=== PATIENT | male | born 1960 | race Caucasian/White ===

== ENCOUNTER → 2016-11-12 | Outpatient (CLI) | payer OTHER ==
--- NOTE | 2016-11-12 13:25 | XR ---
EXAMINATION TYPE: XR Hip Bilateral Complete DATE OF EXAM: 11/12/2016 11:25 AM COMPARISON: NONE HISTORY: Hip pain TECHNIQUE: Bilateral hips 2 views each FINDINGS: Femoral head spurring is present on the right. There is narrowing of the right hip joint sp juwan. There is narrowing of the left hip joint space. Acetabular spurring is present. Some femoral head spu rring is noted on the left. IMPRESSION: 1. Moderate bilateral hip degenerative changes
--- NOTE | 2016-11-12 13:26 | XR ---
EXAMINATION TYPE: XR lumbar spine 2 or 3V DATE OF EXAM: 11/12/2016 11:25 AM COMPARISON: NONE HISTORY: Low back pain TECHNIQUE: 3 view lumbar spine FINDINGS: Mild scoliosis in the upper lumbar spine. Some mild compression deformity of L1 may be pres ent. A limbus vertebra at T11 appears to be present, variant. Degenerative disc changes are present T 11-12 and T12-L1. Posterior disc space narrowing is present L1-2 IMPRESSION: 1. Degenerative disc changes upper lumbar spine. 2. Mild compression deformities T12 and L1
== END | disposition home or self-care (01) ==
LOC: RADXRMAIN 10:58
PROVIDERS: ATTEND Family Medicine
DX: M25.851 Other specified joint disorders, right hip (principal); M25.852 Other specified joint disorders, left hip; M47.816 Spondylosis without myelopathy or radiculopathy, lumbar region; M43.8X5 Other specified deforming dorsopathies, thoracolumbar region
CPT/HCPCS: 72100; 73521

== ENCOUNTER 2017-10-24 11:46 | Inpatient (IN) | payer OTHER ==
[2017-10-24] MEDS ORDERED: MORPHINE SULFATE 4 MG/ML SYRINGE IV STA (12:40)
[2017-10-24] MEDS ORDERED: RX INFO: IV CONTRAST WAS GIVEN 1 EACH MISC MISCELLANE PRN (12:40)
[2017-10-24] MEDS ORDERED: SODIUM CHLORIDE 0.9% 1,000 ML IV STA ×5 (12:40→15:15)
[2017-10-24] MEDS ORDERED: ONDANSETRON 4 MG/2 ML VIAL IVP STA (12:40)
--- NOTE | 2017-10-24 13:01 | ED ---
General Adult HPI - General Source: patient, RN notes reviewed Mode of arrival: wheelchair Limitations: no limitations <Mark Faith - Last Filed: 10/24/17 15:34> <Froilan Orellana - Last Filed: 10/24/17 15:41> - General Chief complaint: Abdominal Pain Stated complaint: ABDOMINAL PAIN Time Seen by Provider: 10/24/17 12:17 - History of Present Illness Initial comments: Patient 57-year-old male who presents emergency room today with a chief complaint abdominal pain that began yesterday. He doesn't know lower abdomen. Describes it as "sharp". Currently rates an 03/19. Patient states that had a few episodes of nausea vomiting this morning. States never had similar symptoms in the past. Denies any other complaints or symptoms at this time. Patient denies any recent fever, chills, shortness of breath, chest pain, back pain, numbness or tingling, dysuria or hematuria, constipation or diarrhea, headaches or visual changes, or any other complaints. (Mark Faith) - Related Data Home Medications Medication Instructions Recorded Confirmed Furosemide [Lasix] 40 mg PO DAILY 10/24/17 10/24/17 Ibuprofen [Motrin] 800 mg PO TID PRN 10/24/17 10/24/17 Lisinopril [Prinivil] 10 mg PO DAILY 10/24/17 10/24/17 Potassium Chloride [K-Tab ER] 10 meq PO DAILY 10/24/17 10/24/17 Allergies Allergy/AdvReac Type Severity Reaction Status Date / Time No Known Allergies Allergy Verified 10/24/17 13:07 Review of Systems ROS Other: All systems not noted in ROS Statement are negative. <Mark Faith - Last Filed: 10/24/17 15:34> ROS Other: All systems not noted in ROS Statement are negative. <Froilan Orellana - Last Filed: 10/24/17 15:41> ROS Statement: Those systems with pertinent positive or pertinent negative responses have been documented in the HPI. Past Medical History Past Medical History: Hypertension History of Any Multi-Drug Resistant Organisms: None Reported Past Surgical History: No Surgical Hx Reported Past Psychological History: No Psychological Hx Reported Smoking Status: Current every day smoker Past Alcohol Use History: Occasional Past Drug Use History: None Reported <Mark Faith - Last Filed: 03/17/18 15:34> General Exam Limitations: no limitations <Mark Faith - Last Filed: 10/24/17 15:34> <Froilan Orellana - Last Filed: 10/24/17 15:41> - General Exam Comments Initial Comments: General: The patient is awake and alert, in no distress, and does not appear acutely ill. Eye: Pupils are equal, round and reactive to light, extra-ocular movements are intact. No nystagmus. There is normal conjunctiva bilaterally. No signs of icterus. Ears, nose, mouth and throat: There are moist mucous membranes and no oral lesions. Neck: The neck is supple, there is no tenderness or JVD. Cardiovascular: There is a regular rate and rhythm. No murmur, rub or gallop is appreciated. Respiratory: Lungs are clear to auscultation, respirations are non-labored, breath sounds are equal. No wheezes, stridor, rales, or rhonchi. Gastrointestinal: Abdomen soft on palpation. Patient does have tenderness both upper and lower quadrants on the left right sides. No rebound tenderness. No guarding. No CVA tenderness. Musculoskeletal: Normal ROM, no tenderness. Strength 5/5. Sensation intact. Pulses equal bilaterally 2+. Neurological: A&O x 3. CN II-XII intact, There are no obvious motor or sensory deficits. Coordination appears grossly intact. Speech is normal. Skin: Skin is warm and dry and no rashes or lesions are noted. Psychiatric: Cooperative, appropriate mood & affect, normal judgment. (Mark Faith) Course <Mark Faith - Last Filed: 10/24/17 15:34> <Froilan Orellana - Last Filed: 10/24/17 15:41> Vital Signs 10/24/17 10/24/17 11:52 14:27 Temperature 97.8 F Pulse Rate 118 H 109 H Respiratory 18 18 Rate Blood Pressure 130/67 134/74 O2 Sat by Pulse 99 99 Oximetry - Reevaluation(s) Reevaluation #1: 10/24/17 15:39 I personally did a [id number] evaluation the patient did discuss findings with him. I also did discuss the case with Dr. Mendez. CAT scan did show evidence of acute appendicitis with small monitor perforation as was a focus of air at the base of the appendix which is nondependent also evidence of pericolic infiltration of the fat. (Froilan Orellana) Medical Decision Making - Lab Data Result diagrams: 10/24/17 13:15 10/24/17 13:15 <Mark Faith - Last Filed: 10/24/17 15:34> - Lab Data Result diagrams: 10/24/17 13:15 10/24/17 13:15 <Froilan Orellana - Last Filed: 10/24/17 15:41> - Medical Decision Making Patient's CT doesn't show evidence for acute appendicitis with possible rupture. Patient's labs reviewed does show 15,000 white count with elevated lactic acid. Patient given 3 L of fluid here in the emergency room. Clinically doing well at this time. Patient started on antibiotics of Zosyn. Discussed and seen by [facility] physician Dr. Orellana who did discuss case with surgeon position classifier Dr. Mendez who will plan to take the patient to the operating room. (Mark Faith) - Lab Data Lab Results 10/24/17 10/24/17 10/24/17 Range/Units 13:15 13:15 13:15 WBC 15.6 H (3.8-10.6) k/uL RBC 5.66 (4.30-5.90) m/uL Hgb 16.9 (13.0-17.5) gm/dL Hct 48.8 (39.0-53.0) % MCV 86.2 (80.0-100.0) fL MCH 29.9 (25.0-35.0) pg MCHC 34.7 (31.0-37.0) g/dL RDW 12.3 (11.5-15.5) % Plt Count 269 (150-450) k/uL Neutrophils % 91 % Lymphocytes % 4 % Monocytes % 4 % Eosinophils % 0 % Basophils % 0 % Neutrophils # 14.2 H (1.3-7.7) k/uL Lymphocytes # 0.6 L (1.0-4.8) k/uL Monocytes # 0.6 (0-1.0) k/uL Eosinophils # 0.0 (0-0.7) k/uL Basophils # 0.0 (0-0.2) k/uL Sodium 140 (137-145) mmol/L Potassium 4.5 (3.5-5.1) mmol/L Chloride 99 (98-107) mmol/L Carbon Dioxide 25 (22-30) mmol/L Anion Gap 16 mmol/L BUN 22 H (9-20) mg/dL Creatinine 0.80 (0.66-1.25) mg/dL Est GFR (CKD-EPI)AfAm >90 (>60 ml/min/1.73 sqM) Est GFR (CKD-EPI)NonAf >90 (>60 ml/min/1.73 sqM) Glucose 205 H (74-99) mg/dL Plasma Lactic Acid Lopez 4.6 H* (0.7-2.0) mmol/L Calcium 10.2 (8.4-10.2) mg/dL Total Bilirubin 0.9 (0.2-1.3) mg/dL AST 22 (17-59) U/L ALT 27 (21-72) U/L Alkaline Phosphatase 100 (38-126) U/L Total Protein 7.3 (6.3-8.2) g/dL Albumin 4.3 (3.5-5.0) g/dL Amylase 40 (30-110) U/L Lipase 35 (23-300) U/L Disposition Time of Disposition: 15:35 <Mark Faith - Last Filed: 10/24/17 15:34> <Froilan Orellana - Last Filed: 10/24/17 15:41> Clinical Impression: Acute appendicitis Disposition: ADMITTED IP TO THIS HOSP Condition: Stable Referrals: Kody Mckenna Jr, [Primary Care Provider] - 1-2 days
[2017-10-24 13:36] LABS: Basophils % (A) 0 %; Eosinophils % (A) 0 %; HCT 48.8 % (39.0-53.0); HGB 16.9 gm/dL (13.0-17.5); Lymphocytes # (A) 0.6 k/uL (1.0-4.8); Lymphocytes % (A) 4 %; MCH 29.9 pg (25.0-35.0); MCHC 34.7 g/dL (31.0-37.0); MCV 86.2 fL (80.0-100.0); Mean Platelet Volume 7.7; Monocytes # (A) 0.6 k/uL (0-1.0); Monocytes % (A) 4 %; Neutrophils # (A) 14.2 k/uL (1.3-7.7); Neutrophils % (A) 91 %; Platelet Count 269 k/uL (150-450); RBC 5.66 m/uL (4.30-5.90); RDW 12.3 % (11.5-15.5); WBC 15.6 k/uL (3.8-10.6)
[2017-10-24 13:50] LABS: ALT 27 U/L (21-72); AST 22 U/L (17-59); Albumin 4.3 g/dL (3.5-5.0); Alkaline Phosphatase 100 U/L (38-126); Amylase 40 U/L (30-110); Anion Gap 16 mmol/L; Blood Urea Nitrogen 22 mg/dL (9-20); Calcium 10.2 mg/dL (8.4-10.2); Carbon Dioxide 25 mmol/L (22-30); Chloride 99 mmol/L (98-107); Glucose 205 mg/dL (74-99); Lipase 35 U/L (23-300); Potassium 4.5 mmol/L (3.5-5.1); Sodium 140 mmol/L (137-145); Total Bilirubin 0.9 mg/dL (0.2-1.3); Total Protein 7.3 g/dL (6.3-8.2)
--- NOTE | 2017-10-24 14:26 | XR ---
EXAMINATION TYPE: XR KUB , 2 VIEWS DATE OF EXAM ORDERED: 10/24/2017 HISTORY: abdominal pain. COMPARISON: None. FINDINGS: The lung bases are clear. Within the abdomen, there are mildly prominent air-filled loops of small bowel in the midabdomen. The re is some left-sided colonic air. There is no evidence of free air. The stomach is mildly distended. IMPRESSION: 1. CENTRALIZED ILEUS VERSUS EARLY OBSTRUCTION. 2. GASTRIC DISTENTION.
--- NOTE | 2017-10-24 15:02 | CT ---
EXAMINATION TYPE: CT abdomen pelvis w con DATE OF EXAM: 10/24/2017 COMPARISON: NONE HISTORY: generalized pain CT DLP: 1663 mGycm Automated exposure control for dose reduction was used. TECHNIQUE: Helical acquisition of images was performed from the lung bases through the pelvis. CONTRAST: Performed without Oral Contrast and with IV Contrast, patient injected with 100 mL of Omnipaque 300. FINDINGS: LUNG BASES: No significant abnormality is appreciated. LIVER/GB: There could be a small cyst in the anterior right hepatic lobe which measures 1.1 cm. There is a tiny amount of perihepatic ascites. PANCREAS: No significant abnormality is seen. SPLEEN: No significant abnormality is seen. ADRENALS: No significant abnormality is seen. KIDNEYS: No significant abnormality is seen. FREE AIR: No free air is visualized. RETROPERITONEAL ADENOPATHY: None visualized REPRODUCTIVE ORGANS: No significant abnormality is seen URINARY BLADDER: No significant abnormality is seen. PELVIC ADENOPATHY: None visualized. OSSEOUS STRUCTURES: No significant abnormality is seen. BOWEL: There is extensive pericolonic infiltration of the fat in the right lower quadrant. The appen luis is dilated and there is extensive fat stranding surrounding the appendix. The appendix is dilated to 1.2 cm. No well-defined abscess is present at the current time however there is a focus of air at the base of the appendix which is nondependent. There could be a small area of perforation. OTHER: None IMPRESSION: ACUTE APPENDICITIS WITH LIKELY RUPTURE. NO WELL-DEFINED ABSCESS IS PRESENT AT THE CURRENT TIME.
[2017-10-24] MEDS ORDERED: PIPERACILLIN-TAZOBACTAM 3.375 GM in DEXTROSE/WATER 1 50ML.BAG IVPB STA (15:13)
[2017-10-24] MEDS ORDERED: LACTATED RINGERS 1,000 ML IV ONE ×5 (16:30→21:03)
--- NOTE | 2017-10-24 16:31 | P.GSHP ---
History of Present Illness H&P Date: 10/24/17 57-year-old male presents to the emergency department complaining of pain that began in his right lower quadrant approximately 24 hours ago. He states that the pain has worsened and has affected his entire lower abdomen. He states that he has decreased appetite. He denies any nausea. He denies any vomiting. He denies any change in bowel function. He states he has never had this type of pain before. He denies any fevers, chills, chest pain or shortness of breath at this time. He states he has never had any surgical procedures performed. He states that he is on medication for hypertension. - Review of Systems All systems: negative Past Medical History Past Medical History: Hypertension History of Any Multi-Drug Resistant Organisms: None Reported Past Surgical History: No Surgical Hx Reported Past Psychological History: No Psychological Hx Reported Smoking Status: Current every day smoker Past Alcohol Use History: Occasional Past Drug Use History: None Reported Medications and Allergies Home Medications Medication Instructions Recorded Confirmed Type Furosemide [Lasix] 40 mg PO DAILY 10/24/17 10/24/17 History Ibuprofen [Motrin] 800 mg PO TID PRN 10/24/17 10/24/17 History Lisinopril [Prinivil] 10 mg PO DAILY 10/24/17 10/24/17 History Potassium Chloride [K-Tab ER] 10 meq PO DAILY 10/24/17 10/24/17 History Allergies Allergy/AdvReac Type Severity Reaction Status Date / Time No Known Allergies Allergy Verified 10/24/17 13:07 Surgical - Exam Osteopathic Statement: *. No significant issues noted on an osteopathic structural exam other than those noted in the History and Physical/Consult. Vital Signs Temp Pulse Resp BP Pulse Ox 97.8 F 118 H 18 130/67 99 10/24/17 11:52 10/24/17 11:52 10/24/17 11:52 10/24/17 11:52 10/24/17 11:52 - General well nourished, no distress - Eyes PERRL, normal ocular movement - ENT normal nares, normal mucosa, no hearing loss - Neck trachea midline - Respiratory No difficulty with respiration - Abdomen Obese, Soft, tender to palpation in the right lower quadrant, nondistended, no rebound, no guarding - Neurologic normal sensation - Psychiatric oriented to time, oriented to person, oriented to place Results - Labs 10/24/17 13:15 10/24/17 13:15 Abnormal Lab Results - Last 24 Hours (Table) 10/24/17 10/24/17 10/24/17 Range/Units 13:15 13:15 13:15 WBC 15.6 H (3.8-10.6) k/uL Neutrophils # 14.2 H (1.3-7.7) k/uL Lymphocytes # 0.6 L (1.0-4.8) k/uL BUN 22 H (9-20) mg/dL Glucose 205 H (74-99) mg/dL Plasma Lactic Acid Lopez 4.6 H* (0.7-2.0) mmol/L Diabetes panel 10/24/17 Range/Units 13:15 Sodium 140 (137-145) mmol/L Potassium 4.5 (3.5-5.1) mmol/L Chloride 99 (98-107) mmol/L Carbon Dioxide 25 (22-30) mmol/L BUN 22 H (9-20) mg/dL Creatinine 0.80 (0.66-1.25) mg/dL Glucose 205 H (74-99) mg/dL Calcium 10.2 (8.4-10.2) mg/dL AST 22 (17-59) U/L ALT 27 (21-72) U/L Alkaline Phosphatase 100 (38-126) U/L Total Protein 7.3 (6.3-8.2) g/dL Albumin 4.3 (3.5-5.0) g/dL Calcium panel 10/24/17 Range/Units 13:15 Calcium 10.2 (8.4-10.2) mg/dL Albumin 4.3 (3.5-5.0) g/dL Pituitary panel 10/24/17 Range/Units 13:15 Sodium 140 (137-145) mmol/L Potassium 4.5 (3.5-5.1) mmol/L Chloride 99 (98-107) mmol/L Carbon Dioxide 25 (22-30) mmol/L BUN 22 H (9-20) mg/dL Creatinine 0.80 (0.66-1.25) mg/dL Glucose 205 H (74-99) mg/dL Calcium 10.2 (8.4-10.2) mg/dL Adrenal panel 10/24/17 Range/Units 13:15 Sodium 140 (137-145) mmol/L Potassium 4.5 (3.5-5.1) mmol/L Chloride 99 (98-107) mmol/L Carbon Dioxide 25 (22-30) mmol/L BUN 22 H (9-20) mg/dL Creatinine 0.80 (0.66-1.25) mg/dL Glucose 205 H (74-99) mg/dL Calcium 10.2 (8.4-10.2) mg/dL Total Bilirubin 0.9 (0.2-1.3) mg/dL AST 22 (17-59) U/L ALT 27 (21-72) U/L Alkaline Phosphatase 100 (38-126) U/L Total Protein 7.3 (6.3-8.2) g/dL Albumin 4.3 (3.5-5.0) g/dL - Imaging CT scan - abdomen: report reviewed, image reviewed (CT of the abdomen and pelvis was reviewed. There is inflammatory changes around the appendix. I cannot rule out a perforation secondary to some air foci.) CT scan - pelvis: report reviewed, image reviewed Assessment and Plan (1) Acute appendicitis Narrative/Plan: - Begin antibiotics - Keep nothing by mouth - Begin IV fluid resuscitation - Give preop heparin - Plan for laparoscopic appendectomy, possible open Current Visit: Yes Status: Acute Code(s): K35.80 - UNSPECIFIED ACUTE APPENDICITIS SNOMED Code(s): 68381047
[2017-10-24] MEDS ORDERED: HEPARIN SODIUM,PORCINE 5,000 UNIT/ML 1 ML VIAL SQ STA (16:32)
[2017-10-24] MEDS ORDERED: PROPOFOL 10 MG/ML 20 ML VIAL IV ONE (16:40)
[2017-10-24] MEDS ORDERED: PHENYLEPHRINE-0.9% NACL SYG 1 MG/10 ML SYRINGE ONE (16:40)
[2017-10-24] MEDS ORDERED: ROCURONIUM BROMIDE 10 MG/ML 10 ML VIAL IV ONE (16:40)
[2017-10-24] MEDS ORDERED: MIDAZOLAM 2 MG/2 ML VIAL ONE (16:40)
[2017-10-24] MEDS ORDERED: SUCCINYLCHOLINE CHLORIDE VIAL 200 MG/10 ML VIAL IV ONE (16:40)
[2017-10-24] MEDS ORDERED: fentaNYL (PF) 50 MCG/ML 2 ML AMP ONE (16:40)
[2017-10-24] MEDS ORDERED: LIDOCAINE 1% INJ 10MG/ML (20 ML MDV) ONE (16:40)
[2017-10-24] MEDS ORDERED: HEPARIN SODIUM,PORCINE 5,000 UNIT/ML 1 ML VIAL ONE (16:40)
[2017-10-24] MEDS ORDERED: HYDROmorphone (PF) 1 MG/ML ONE (16:40)
[2017-10-24] MEDS ORDERED: NEOSTIGMINE 1 MG/ML 10 ML VIAL ONE (16:40)
[2017-10-24] MEDS ORDERED: GLYCOPYRROLATE 0.2 MG/ML 2 ML VIAL ONE (16:40)
[2017-10-24] MEDS ORDERED: BUPIVACAINE (PF) 0.25% 30 ML VIAL SQ ONE ×2 (17:25)
--- NOTE | 2017-10-24 19:05 | P.OP ---
Date of Procedure: 10/24/17 Preoperative Diagnosis: Acute appendicitis Postoperative Diagnosis: Perforated appendicitis, purulent, intra-abdominal peritonitis Procedure(s) Performed: Laparoscopic appendectomy converted to open appendectomy Anesthesia: RENAN Surgeon: Sriram Mendez Estimated Blood Loss (ml): 25 Urine output (ml): 425 Pathology: other (Appendix, cultures of intra-abdominal fluid and appendix were sent) Condition: stable Disposition: floor Indications for Procedure: 57-year-old male presented to the emergency department complaining of 1 day of right lower quadrant pain. He states that the pain has been worsening and is now spread throughout his lower abdomen. On workup in the emergency department he was found to have a possible perforated appendicitis. Plan was made for laparoscopic appendectomy. The patient was explained the risks, benefits and alternatives to the procedure and did provide consent prior to attending the operating suite. Operative Findings: Perforated appendicitis with purulent material and stool in the right lower quadrant. Injected surrounding small bowel that was dilated. Description of Procedure: The patient was brought into the operating suite and placed in supine position on the operating table. Sedation was provided by anesthesia and the patient underwent endotracheal intubation. The patient was then wrapped and draped in regular sterile fashion. The patient also did have a Jaramillo catheter placed prior to the procedure. A supraumbilical incision was made and the abdomen was entered under direct visualization using a Visiport. Once this was accomplished , pneumoperitoneum was achieved. 2 additional 5 mm ports were then placed. One was placed in the left lower quadrant and one was placed in the suprapubic area. It was immediately noted that there was purulent material and stool throughout the right lower quadrant. Suction was used to clear this area. Dissection was then made to isolate the appendix. The tenia were followed and there was noted to have multiple small bowel loops that were densely adhered to the cecum along with omentum that was adhered to the cecum. These were dissected bluntly from the cecum. It was then noted that the appendix was retrocecal and had walled off between small bowel loops and omentum. Dissection was attempted to free this area however there was concern of the friability of the small bowel and cecum with continued blunt dissection. At this point, it was decided to complete this procedure in an open technique. A right lower quadrant McBurney incision was made. Dissection was carried to the fascia. The fascia was incised and the muscle below was bluntly split to access the peritoneum. The peritoneum was then incised. A retractor was then put in place. The cecum was isolated and blunt dissection was used to free the small bowel loops and omentum that were adhered. The tenia then led to the base of the appendix. The distal portion of the appendix was noted to be perforated and contained a fecalith. Dissection was used to free the appendix towards the tip of the appendix. At this point a stapler was placed across the base of the appendix. This was a [employer] WILLIAM 60 mm purple staple load. This was then fired and hemostasis was noted at the staple line. The appendix was then removed and handed as specimen. Copious amounts of irrigation was then used in the right lower quadrant and suctioned. A SHIRA drain was then placed under direct visualization and brought out through one of the 5 mm port sites. The fascia was then closed using a running 0 Vicryl suture. A few skin stefan were placed with room for packing between. Pneumoperitoneum was then again achieved with the additional ports. The supraumbilical port was then closed using a 0 Vicryl suture with a Sin-Bart device. Pneumoperitoneum was then released. Ports incision sites were closed using a skin stapler. The patient was then awakened in the operating suite and taken to postanesthesia care unit in stable condition.
[2017-10-24] MEDS ORDERED: NALOXONE 0.4 MG/ML 1 ML VIAL IV PRN (21:03)
[2017-10-24] MEDS ORDERED: ONDANSETRON 4 MG/2 ML VIAL IVP PRN (21:03)
[2017-10-24] MEDS: KETOROLAC 30 MG/ML 1 ML VIAL IVP SCH (22:27)
[2017-10-24] MEDS: MORPHINE SULFATE/PF 10MG/10ML VL IVP PRN (22:46)
[2017-10-25] MEDS: HEPARIN SODIUM,PORCINE 5,000 UNIT/ML 1 ML VIAL SQ SCH ×3 (00:33→16:30)
[2017-10-25] MEDS: PIPERACILLIN-TAZOBACTAM 3.375 GM in DEXTROSE/WATER 1 50ML.BAG IVPB SCH ×4 (00:33→23:59)
[2017-10-25 00:55] VITALS: BMI 38.0
[2017-10-25] MEDS: MORPHINE SULFATE/PF 10MG/10ML VL IVP PRN ×3 (04:08→20:38)
[2017-10-25] MEDS: KETOROLAC 30 MG/ML 1 ML VIAL IVP SCH ×2 (04:10→18:07)
[2017-10-25 07:52] LABS: Basophils % (A) 0 %; Eosinophils % (A) 0 %; HCT 40.4 % (39.0-53.0); Lymphocytes # (A) 0.9 k/uL (1.0-4.8); Lymphocytes % (A) 6 %; MCH 29.2 pg (25.0-35.0); MCHC 34.6 g/dL (31.0-37.0); MCV 84.4 fL (80.0-100.0); Mean Platelet Volume 7.8; Monocytes # (A) 0.5 k/uL (0-1.0); Monocytes % (A) 4 %; Neutrophils % (A) 88 %; Platelet Count 204 k/uL (150-450); RBC 4.78 m/uL (4.30-5.90); RDW 12.3 % (11.5-15.5); WBC 13.6 k/uL (3.8-10.6)
[2017-10-25] MEDS: PANTOPRAZOLE 40 MG/10 ML VIAL IV SCH (07:56)
[2017-10-25 08:06] LABS: ALT 23 U/L (21-72); AST 16 U/L (17-59); Albumin 2.6 g/dL (3.5-5.0); Alkaline Phosphatase 56 U/L (38-126); Anion Gap 8 mmol/L; Blood Urea Nitrogen 23 mg/dL (9-20); Calcium 8.4 mg/dL (8.4-10.2); Carbon Dioxide 26 mmol/L (22-30); Chloride 104 mmol/L (98-107); Glucose 108 mg/dL (74-99); Potassium 4.5 mmol/L (3.5-5.1); Sodium 138 mmol/L (137-145); Total Bilirubin 1.1 mg/dL (0.2-1.3); Total Protein 4.9 g/dL (6.3-8.2)
[2017-10-25] MEDS ORDERED: SODIUM CHLORIDE 0.9% 1,000 ML IV ONE (09:41)
--- NOTE | 2017-10-25 10:36 | P.PN ---
Subjective Progress Note Date: 10/25/17 Patient seen and examined at bedside. Resting comfortably. Pain well- controlled. Decreased urine output with dark color. NG tube is in place with 200 mL out over last 15 hours. Denies any bowel function. Denies nausea and vomiting. SHIRA drain in place Objective - Vital Signs Vital signs: Vital Signs Temp 99.9 F H 10/25/17 07:00 Pulse 110 H 10/25/17 08:00 Resp 20 10/25/17 08:00 BP 115/61 10/25/17 07:00 Pulse Ox 94 L 10/25/17 07:00 Intake & Output 10/24/17 10/25/17 10/25/17 18:59 06:59 18:59 Intake Total 4900 200 Output Total 450 680 Balance 4450 -480 Weight 113.398 kg 113.398 kg Intake: IV 2800 200 Amount of Fluid Infused ( 2100 ml) Output: Gastric Drainage 30 Urine 425 650 Estimated Blood Loss 25 Other: Voiding Method Indwelling Catheter Indwelling Catheter - Constitutional General appearance: Present: cooperative - EENT ENT: Present: hearing grossly normal - Respiratory Details: No difficulty with respiration - Gastrointestinal Gastrointestinal Comment(s): Soft, appropriate tenderness, nondistended, no rebound, no guarding, incision sites are clean, dry and intact, SHIRA drain in place with serosanguineous output - Psychiatric Psychiatric: Present: A&O x's 3 - Labs CBC & Chem 7: 10/25/17 06:56 10/25/17 06:56 Labs: Abnormal Lab Results - Last 24 Hours (Table) 10/24/17 10/24/17 10/24/17 Range/Units 13:15 13:15 13:15 WBC 15.6 H (3.8-10.6) k/uL Neutrophils # 14.2 H (1.3-7.7) k/uL Lymphocytes # 0.6 L (1.0-4.8) k/uL BUN 22 H (9-20) mg/dL Glucose 205 H (74-99) mg/dL Plasma Lactic Acid Lopez 4.6 H* (0.7-2.0) mmol/L AST (17-59) U/L Total Protein (6.3-8.2) g/dL Albumin (3.5-5.0) g/dL 10/25/17 10/25/17 Range/Units 06:56 06:56 WBC 13.6 H (3.8-10.6) k/uL Neutrophils # 12.0 H (1.3-7.7) k/uL Lymphocytes # 0.9 L (1.0-4.8) k/uL BUN 23 H (9-20) mg/dL Glucose 108 H (74-99) mg/dL Plasma Lactic Acid Lopez (0.7-2.0) mmol/L AST 16 L (17-59) U/L Total Protein 4.9 L (6.3-8.2) g/dL Albumin 2.6 L (3.5-5.0) g/dL Microbiology - Last 24 Hours (Table) 10/24/17 18:30 Gram Stain - Preliminary Appendix Wound Culture - Preliminary 10/24/17 18:30 Anaerobic Culture - Preliminary Appendix Assessment and Plan (1) Acute appendicitis Narrative/Plan: Laparoscopic appendectomy converted to open appendectomy, postoperative day #1 - Continue Zosyn, infectious disease consult was placed due to intra-abdominal stool secondary to perforated appendicitis - Keep nothing by mouth, NG tube in place with brown output, continue Protonix IV - Continue IV fluid resuscitation, lactated Ringer at 1 25 mL an hour, 1 L bolus of normal saline - Continue DVT prophylaxis with subcutaneous heparin - Increase activity, incentive spirometry - Pain control - Continue Jaramillo to monitor urine output status post surgical procedure Current Visit: Yes Status: Acute Code(s): K35.80 - UNSPECIFIED ACUTE APPENDICITIS SNOMED Code(s): 18091633
[2017-10-25] MEDS ORDERED: KETOROLAC 30 MG/ML 1 ML VIAL IM ONE (10:39)
[2017-10-25] MEDS: FUROSEMIDE 40 MG TAB PO SCH (10:50)
[2017-10-25] MEDS: LISINOPRIL 10 MG TAB PO SCH (10:50)
[2017-10-25] MEDS ORDERED: LIDOCAINE URO-JET JELLY 2% 5 ML KIT URETHRAL STA (21:47)
--- NOTE | 2017-10-25 22:20 | P.GSCN ---
History of Present Illness Consult date: 10/25/17 Reason for Consult: Inability to void Requesting physician: Sriram Mendez History of present illness: The patient is a 57-year-old white male with an unremarkable urologic history. He states that he has no history of voiding dysfunction, and that his urinary stream was strong prior to admission. He has no known history of UTIs, urolithiasis, or BPH. He underwent an open appendectomy yesterday. A 10- Moroccan Jaramillo catheter was placed with difficulty, and the catheter was not draining properly. It was removed earlier today, and he has been able to void only once since that time. It has now been almost 6 hours since he last voided , and he is currently unable to void. I'm consulted for this reason. Review of Systems - Gastrointestinal Reports abdominal pain - Genitourinary Denies dysuria, Denies hematuria Past Medical History Past Medical History: Hypertension History of Any Multi-Drug Resistant Organisms: None Reported Past Surgical History: No Surgical Hx Reported Past Psychological History: No Psychological Hx Reported Smoking Status: Current every day smoker Past Alcohol Use History: Occasional Past Drug Use History: None Reported Medications and Allergies Home Medications Medication Instructions Recorded Confirmed Type Furosemide [Lasix] 40 mg PO DAILY 10/24/17 10/24/17 History Ibuprofen [Motrin] 800 mg PO TID PRN 10/24/17 10/24/17 History Lisinopril [Prinivil] 10 mg PO DAILY 10/24/17 10/24/17 History Potassium Chloride [K-Tab ER] 10 meq PO DAILY 10/24/17 10/24/17 History Allergies Allergy/AdvReac Type Severity Reaction Status Date / Time No Known Allergies Allergy Verified 10/24/17 13:07 Surgical - Exam Vital Signs Temp Pulse Resp BP Pulse Ox 97.8 F 118 H 18 130/67 99 10/24/17 11:52 10/24/17 11:52 10/24/17 11:52 10/24/17 11:52 10/24/17 11:52 - General well developed, well nourished, moderate distress - Genitourinary normal penis with no external lesions, testicles present - Psychiatric oriented to time, oriented to person, oriented to place, speech is normal, memory intact Results - Labs 10/25/17 06:56 10/25/17 06:56 Abnormal Lab Results - Last 24 Hours (Table) 10/25/17 10/25/17 Range/Units 06:56 06:56 WBC 13.6 H (3.8-10.6) k/uL Neutrophils # 12.0 H (1.3-7.7) k/uL Lymphocytes # 0.9 L (1.0-4.8) k/uL BUN 23 H (9-20) mg/dL Glucose 108 H (74-99) mg/dL AST 16 L (17-59) U/L Total Protein 4.9 L (6.3-8.2) g/dL Albumin 2.6 L (3.5-5.0) g/dL Microbiology - Last 24 Hours (Table) 10/24/17 13:15 Blood Culture - Preliminary Blood No Growth after 24 hours 10/24/17 18:30 Gram Stain - Preliminary Appendix Wound Culture - Preliminary Gram Neg Bacilli 10/24/17 18:30 Anaerobic Culture - Preliminary Appendix Diabetes panel 10/25/17 Range/Units 06:56 Sodium 138 (137-145) mmol/L Potassium 4.5 (3.5-5.1) mmol/L Chloride 104 (98-107) mmol/L Carbon Dioxide 26 (22-30) mmol/L BUN 23 H (9-20) mg/dL Creatinine 1.02 (0.66-1.25) mg/dL Glucose 108 H (74-99) mg/dL Calcium 8.4 (8.4-10.2) mg/dL AST 16 L (17-59) U/L ALT 23 (21-72) U/L Alkaline Phosphatase 56 (38-126) U/L Total Protein 4.9 L (6.3-8.2) g/dL Albumin 2.6 L (3.5-5.0) g/dL Calcium panel 10/25/17 Range/Units 06:56 Calcium 8.4 (8.4-10.2) mg/dL Albumin 2.6 L (3.5-5.0) g/dL Pituitary panel 10/25/17 Range/Units 06:56 Sodium 138 (137-145) mmol/L Potassium 4.5 (3.5-5.1) mmol/L Chloride 104 (98-107) mmol/L Carbon Dioxide 26 (22-30) mmol/L BUN 23 H (9-20) mg/dL Creatinine 1.02 (0.66-1.25) mg/dL Glucose 108 H (74-99) mg/dL Calcium 8.4 (8.4-10.2) mg/dL Adrenal panel 10/25/17 Range/Units 06:56 Sodium 138 (137-145) mmol/L Potassium 4.5 (3.5-5.1) mmol/L Chloride 104 (98-107) mmol/L Carbon Dioxide 26 (22-30) mmol/L BUN 23 H (9-20) mg/dL Creatinine 1.02 (0.66-1.25) mg/dL Glucose 108 H (74-99) mg/dL Calcium 8.4 (8.4-10.2) mg/dL Total Bilirubin 1.1 (0.2-1.3) mg/dL AST 16 L (17-59) U/L ALT 23 (21-72) U/L Alkaline Phosphatase 56 (38-126) U/L Total Protein 4.9 L (6.3-8.2) g/dL Albumin 2.6 L (3.5-5.0) g/dL Assessment and Plan (1) Urinary retention Current Visit: Yes Status: Acute Code(s): R33.9 - RETENTION OF URINE, UNSPECIFIED SNOMED Code(s): 988334284 Plan: The penis was prepped and draped sterilely. The urethral meatus was noted to be somewhat small in caliber. 2% lidocaine gel was administered intraurethrally. It was then possible to advance a 16-Moroccan coud tip Jaramillo catheter into the bladder. The urethral lumen was narrow, causing some resistance to the passage of the catheter. Approximately 100 mL of clear urine was drained from the bladder. The Jaramillo catheter may be removed when no longer needed. Please notify me if I can be of any further assistance. Time with Patient: Less than 30
[2017-10-26] MEDS: HEPARIN SODIUM,PORCINE 5,000 UNIT/ML 1 ML VIAL SQ SCH ×4 (00:01→23:28)
[2017-10-26] MEDS ORDERED: ACETAMINOPHEN IV (For NPO) 1,000 MG in EMPTY BAG 1 BAG IVPB ONE (00:35)
[2017-10-26] MEDS: MORPHINE SULFATE/PF 10MG/10ML VL IVP PRN ×2 (02:23→20:44)
--- NOTE | 2017-10-26 05:51 | CONS ---
CONSULTATION DATE OF SERVICE: 10/25/2017 REASON FOR CONSULTATION: Secondary peritonitis with perforated appendicitis. HISTORY OF PRESENT ILLNESS: The patient is a 57-year-old male who presented to the [facility] ER on the October around noon with chief complaints of abdominal pain. Apparently, his pain started the day before he presented to the hospital. The pain has been in the lower abdominal area and described the pain to be sharp almost 8/10 in severity. The patient did have associated nausea and a few episodes of vomiting on the morning he presented to the hospital. On arrival to the ER, the patient has been evaluated. He was afebrile. However, this morning he had a low-grade fever of 99.9. The patient did have elevated white count 15.6 with lactic acid of 4.6. The patient further evaluated and did have a CT abdomen and pelvis, which shows acute appendicitis with likely rupture. No well-defined abscess is present. The patient has been seen by General surgery, Dr. Mendez and this has been taken to the OR the same evening where the patient did have laparoscopic appendectomy that was converted to open appendectomy. Cultures of the intraabdominal fluid and the appendix were sent. The patient has been admitted to the general surgical floor. Infectious Disease was consulted for further recommendation regarding antibiotic therapy. The patient is currently afebrile. He is breathing comfortably. Denies having any chest pain, shortness of breath or cough. He has been complaining of some abdominal pain still about 6 to 7/10, and has been getting morphine with some improvement. No nausea, no vomiting and no diarrhea. REVIEW OF SYSTEMS: CONSTITUTIONAL: Positive for weakness and low-grade fever. EYES: No complaint. ENT: No complaint. RESPIRATORY: No complaint. CARDIOVASCULAR: No complaint. GENITOURINARY: No complaint. GASTROINTESTINAL: As per HPI. MUSCULOSKELETAL: No complaint. INTEGUMENTARY: No complaint. PSYCHOLOGICAL: No complaint. ENDOCRINE: No complaint NEUROLOGIC: No complaint. PAST MEDICAL HISTORY: His past medical history is significant for hypertension. PAST SURGICAL HISTORY: No major surgeries. SOCIAL HISTORY: Positive for smoking, smokes about a pack a day, have more than 30 pack-year smoking. Occasionally drinks. No drug use. FAMILY HISTORY: No pertinent findings were noticed. ALLERGIES: No known drug allergies. MEDICATION: Medications include the patient is currently on Lasix, heparin, Zestril, morphine sulfate, Narcan, Zofran, Protonix, and Zosyn 3.375 grams IV piggyback q.8 hour. PHYSICAL EXAMINATION: On examination, his blood pressure is 129/85 with a pulse of 126, temperature of 99.9. He is 91% on 3 L nasal cannula. General description is a middle-aged male lying in bed in no distress. No tachypnea or accessory muscle of respiration use. HEENT EXAMINATION: No pallor or scleral icterus. Oral mucosa membrane is dry and no pharyngeal erythema or thrush. NECK: Trachea central. No thyromegaly. LUNGS: Unlabored breathing with decreased breath sounds in the bases, no wheeze. HEART: S1, S2. Regular rate and rhythm. No murmur. ABDOMEN: Soft, slightly distended. No guarding. No rigidity. No organomegaly. EXTREMITIES: No edema of the feet. SKIN EXAMINATION: No rash or mass palpable. NEUROLOGICAL: Patient is awake, alert, oriented x3. Mood and affect normal. LABS: Hemoglobin is 14, white count 13.6. Admission white count was 15.6. BUN of 23, creatinine 1.02. Lactic acid of 4.6. culture showing a gram-negative bacilli. DIAGNOSTIC IMPRESSION AND PLAN: Patient with secondary peritonitis from a ruptured appendicitis in a patient who does have features of sepsis. The patient did have elevated lactic acid, elevated white count and tachycardia likely on gram negative both aerobes and anaerobes and patient has not been on antibiotic in the past could be sensitive pathogen. PLAN: 1. Zosyn 3.375 grams IV q.8h should provide adequate coverage for underlying secondary peritonitis related to ruptured appendicitis. 2. Gentle IV fluids. 3. Depending upon his clinical response as well as cultures, will adjust the medication further if needed. Thank you for this consultation. Will follow this patient along with you. MMODL / IJN: [id number] /
[2017-10-26 07:54] LABS: Basophils % (A) 0 %; Eosinophils % (A) 0 %; HCT 38.8 % (39.0-53.0); HGB 12.6 gm/dL (13.0-17.5); Lymphocytes # (A) 0.7 k/uL (1.0-4.8); Lymphocytes % (A) 5 %; MCH 28.2 pg (25.0-35.0); MCHC 32.4 g/dL (31.0-37.0); MCV 87.2 fL (80.0-100.0); Mean Platelet Volume 8.6; Monocytes # (A) 0.6 k/uL (0-1.0); Monocytes % (A) 4 %; Neutrophils # (A) 13.4 k/uL (1.3-7.7); Neutrophils % (A) 90 %; Platelet Count 188 k/uL (150-450); RBC 4.45 m/uL (4.30-5.90); RDW 12.6 % (11.5-15.5); WBC 14.9 k/uL (3.8-10.6)
[2017-10-26 08:16] LABS: Calcium 8.5 mg/dL (8.4-10.2); Potassium 3.7 mmol/L (3.5-5.1)
[2017-10-26] MEDS: PIPERACILLIN-TAZOBACTAM 3.375 GM in DEXTROSE/WATER 1 50ML.BAG IVPB SCH ×3 (08:29→23:28)
[2017-10-26] MEDS: LACTATED RINGERS 1,000 ML IV SCH ×2 (09:24→18:10)
[2017-10-26] MEDS: PANTOPRAZOLE 40 MG/10 ML VIAL IV SCH (09:24)
[2017-10-26] MEDS: FUROSEMIDE 40 MG TAB PO SCH (09:24)
[2017-10-26] MEDS: LISINOPRIL 10 MG TAB PO SCH (09:24)
--- NOTE | 2017-10-26 10:44 | P.PN ---
Subjective Progress Note Date: 10/26/17 Patient seen and examined at bedside. Did receive multiple phone calls of over the last 24 hours on this patient. He has persistent tachycardia. He did have issues with his urinary catheter yesterday with inability to drain and the passing of a clot. Urology was consulted and Jaramillo was replaced. The patient did have a low-grade fever of 100.6 overnight and this was broken with IV Tylenol. He has not ambulated or been out of bed since surgery. He states that he still feels abdominal pain and bilateral lower quadrants. SHIRA drain is in place with serosanguineous output. NG tube put out less than 20 mL overnight. Objective - Vital Signs Vital signs: Vital Signs Temp 100.6 F H 10/26/17 00:30 Pulse 126 H 10/26/17 00:30 Resp 20 10/26/17 00:30 BP 135/82 10/26/17 00:30 Pulse Ox 93 L 10/26/17 00:30 Intake & Output 10/25/17 10/26/17 10/26/17 18:59 06:59 18:59 Intake Total 1874 Output Total 575 300 Balance 1299 -300 Intake: Intake, IV Titration 1874 Amount Lactated Ringers 1,000 ml 875 @ 125 mls/hr IV .Q8H ONE Rx#:[id number] Sodium Chloride 0.9% 1, 999 000 ml @ 999 mls/hr IV . Q1H1M ONE Rx#:[id number] Output: Gastric Drainage 100 Urine 475 300 Uretheral (Jaramillo) 0 Other: Voiding Method Indwelling Catheter Indwelling Catheter # Voids 0 - Constitutional General appearance: Present: cooperative, no acute distress - Respiratory Details: No difficulty with respiration - Gastrointestinal Gastrointestinal Comment(s): Soft, appropriate tenderness, nondistended, no rebound, no guarding, incision sites are clean, dry and intact, SHIRA drain in place with serosanguineous output - Musculoskeletal Musculoskeletal: Present: generalized weakness - Psychiatric Psychiatric: Present: A&O x's 3 - Labs CBC & Chem 7: 10/26/17 05:59 10/26/17 05:59 Labs: Abnormal Lab Results - Last 24 Hours (Table) 10/26/17 10/26/17 Range/Units 05:59 05:59 WBC 14.9 H (3.8-10.6) k/uL Hgb 12.6 L (13.0-17.5) gm/dL Hct 38.8 L (39.0-53.0) % Neutrophils # 13.4 H (1.3-7.7) k/uL Lymphocytes # 0.7 L (1.0-4.8) k/uL BUN 25 H (9-20) mg/dL Microbiology - Last 24 Hours (Table) 10/24/17 13:15 Blood Culture - Preliminary Blood No Growth after 24 hours 10/24/17 18:30 Gram Stain - Preliminary Appendix Wound Culture - Preliminary Gram Neg Bacilli Assessment and Plan (1) Acute appendicitis Narrative/Plan: Laparoscopic appendectomy converted to open appendectomy, postoperative day #2 - Continue Zosyn, infectious disease consult was placed due to intra-abdominal stool secondary to perforated appendicitis - Keep nothing by mouth, NG tube removed this morning - Persistent tachycardia is noted, consult cardiology and plan for echo - Continue IV fluid resuscitation, lactated Ringer at 125 mL an hour - Leukocytosis mildly increased today, we will continue to follow - Continue DVT prophylaxis with subcutaneous heparin - Increase activity, incentive spirometry - Pain control - Continue Jaramillo to monitor urine output status post surgical procedure, appreciate placement by Dr. Chanel, urology - Prognosis guarded Current Visit: Yes Status: Acute Code(s): K35.80 - UNSPECIFIED ACUTE APPENDICITIS SNOMED Code(s): 86639708
--- NOTE | 2017-10-26 12:57 | P.CONS ---
History of Present Illness - Reason for Consult Consult date: 10/26/17 Medical management - Chief Complaint s/p laparoscopic appendectomy - History of Present Illness 57-year-old male who presented to the emergency room on 10/24/2017 with a chief complaint of abdominal pain. The patient was found to have appendicitis and underwent laparoscopic appendectomy converted to open appendectomy with Dr. Mendez on 10/24/2017. His appendix was found to be perforated and was found to have intra-abdominal peritonitis. Dr. Ma was consulted for medical management. The patient is seen in evaluated sitting up in the chair. Dr. Whiteside is on consult for infectious disease. He is currently receiving Zosyn every 8 hours IV. Preliminary cultures from the patient's appendix are positive for gram-negative bacilli. The patient had an indwelling urinary catheter placed for surgery which was found to be not properly draining. The patient was unable to void since that time. Urology was consulted. A new indwelling coud catheter was placed per urology. Per nursing, the patient had multiple blood clots present. The patient has been tachycardic with a rate in the 110-120s. Cardiology was consulted today and an echocardiogram has been ordered. The patient was febrile overnight with a temperature of 100.6F. This morning he is afebrile with a temperature of 98.8. He is on 4 L nasal cannula with oxygen saturations greater than 92%. The patient had an NG tube to low intermittent suction which has since been discontinued this morning. SHIRA drain is in place with serosanguineous drainage. The patient denies chest pain or pressure. Denies shortness of breath. Denies nausea or vomiting. Denies flatus. No bowel movement. Denies palpitations. States his pain is tolerable at this time. Review of Systems GENERAL: Positive for fever. Denies chills. EYES: Denies blurred vision. Denies vision changes. Denies eye pain. EARS, NOSE, MOUTH, & THROAT: Denies headache. Denies sore throat. Denies ear pain. RESPIRATORY: Denies cough. Denies shortness of breath. Denies sputum production. Denies hemoptysis. CARDIOVASCULAR: Denies chest pain or pressure. Denies palpitations. Denies arrhythmias. GASTROINTESTINAL: Positive for abdominal pain upon admission. Patient states abdominal pain has improved. Denies diarrhea. Denies constipation. Denies nausea. Denies vomiting. Denies heartburn. Denies blood in the stool. GENITOURINARY: Denies urinary frequency. Denies burning. Denies dysuria. Denies cloudy urine. Denies blood in the urine. MUSCULOSKELETAL: Denies myalgias. Denies joint swelling. Denies decreased range of motion beyond patients baseline. INTEGUMENTARY: Denies pruitis. Denies rash. PSYCHIATRIC: Denies suicidal or homicial ideations. ENDOCRINE: Denies weight change. Denies polydipsia. Denies polyuria. HEMATOLOGIC: Denies bleeding disorders. Past Medical History Past Medical History: Hypertension History of Any Multi-Drug Resistant Organisms: None Reported Past Surgical History: No Surgical Hx Reported Past Psychological History: No Psychological Hx Reported Smoking Status: Current every day smoker Past Alcohol Use History: Occasional Past Drug Use History: None Reported Medications and Allergies Home Medications Medication Instructions Recorded Confirmed Type Furosemide [Lasix] 40 mg PO DAILY 10/24/17 10/24/17 History Ibuprofen [Motrin] 800 mg PO TID PRN 10/24/17 10/24/17 History Lisinopril [Prinivil] 10 mg PO DAILY 10/24/17 10/24/17 History Potassium Chloride [K-Tab ER] 10 meq PO DAILY 10/24/17 10/24/17 History Allergies Allergy/AdvReac Type Severity Reaction Status Date / Time No Known Allergies Allergy Verified 10/24/17 13:07 Physical Exam Vitals: Vital Signs Temp Pulse Pulse Resp BP Pulse Ox 10/26/17 07:00 98.8 F 117 H 92 L 10/26/17 00:30 100.6 F H 126 H 20 135/82 93 L 10/26/17 00:00 125 H 16 10/25/17 20:00 97.9 F 125 H 16 118/77 93 L 10/25/17 16:00 123 H 20 10/25/17 15:00 99.9 F H 126 H 18 129/85 91 L Intake and Output 10/25/17 10/26/17 10/26/17 22:59 06:59 14:59 Intake Total 1874 Output Total 875 0 Balance 999 0 Intake: Intake, IV Titration 1874 Amount Lactated Ringers 1,000 ml 875 @ 125 mls/hr IV .Q8H ONE Rx#:[id number] Sodium Chloride 0.9% 1, 999 000 ml @ 999 mls/hr IV . Q1H1M ONE Rx#:[id number] Output: Gastric Drainage 100 Drainage 0 Abdomen 0 Urine 775 Uretheral (Jaramillo) 0 Other: Voiding Method Indwelling Catheter Indwelling Catheter # Voids 0 GENERAL: This is a 57-year-old male in no apparent distress at the time of examination. Sitting up in the chair. Pleasant and cooperative. HEENT: Head is atraumatic, normocephalic. Pupils are equal, round, and reactive to light. Sclerae anicteric. Conjunctivae are clear. Mucus membranes of the mouth are moist. Neck is supple. RESPIRATORY: Clear to ausculation. No wheezes, rales, or rhonchi. No use of accessory muscles. Patient maintaining oxygen saturation greater than 92% on 4 L nasal cannula. No chest wall tenderness is noted on palpation or with deep breathing. CARDIOVASCULAR: Tachycardic. Regular rate and rhythm. S1 and S2 noted. No JVD noted. No S3 or S4 noted. GASTROINTESTINAL: No distention noted. Abdomen soft and round. Hypoactive bowel sounds auscultated x 4 quadrants. SHIRA drain present with serosanguineous drainage. No pain or tenderness noted upon palpation. INTEGUMENTARY: No cyanosis. No jaundice. No rashes noted. No cellulitis noted. EXTREMITIES: 2+ peripheral pulses. No evidence of peripheral edema. No calf tenderness noted. NEUROLOGIC: Cranial nerves II-XII intact. PSYCHIATRIC: Awake, alert, and oriented X 3. Appropriate affect. Intact judgement and insight. Results CBC & Chem 7: 10/26/17 05:59 10/26/17 05:59 Labs: Abnormal Lab Results - Last 24 Hours (Table) 10/26/17 10/26/17 Range/Units 05:59 05:59 WBC 14.9 H (3.8-10.6) k/uL Hgb 12.6 L (13.0-17.5) gm/dL Hct 38.8 L (39.0-53.0) % Neutrophils # 13.4 H (1.3-7.7) k/uL Lymphocytes # 0.7 L (1.0-4.8) k/uL BUN 25 H (9-20) mg/dL Microbiology - Last 24 Hours (Table) 10/24/17 13:15 Blood Culture - Preliminary Blood No Growth after 24 hours 10/24/18 18:30 Gram Stain - Preliminary Appendix Wound Culture - Preliminary Gram Neg Bacilli Assessment and Plan Plan: ASSESSMENT: Laparoscopic appendectomy converted to open appendectomy secondary to perforated appendix with intra-abdominal stool, POD #2 Sepsis with elevated lactic acid, leukocytosis, and tachycardia, secondary to above Essential hypertension Tachycardia, cardiology consulted Urinary retention with blood clots noted, s/p insertion of indwelling urinary catheter per urology Nicotine dependence, patient is a current everyday cigarette smoker Obesity: BMI 38.0 PLAN: Continue postoperative care per Dr. Mendez Cardiology consulted for tachycardia Echocardiogram ordered. Await results Activity as tolerated Pain control Urology on consult Continue indwelling urinary catheter Infectious disease on consult Continue Zosyn every 8 hours IV Home meds as appropriate Monitor labs Smoking cessation recommended GI prophylaxis: Protonix 40 mg IV Daily DVT prophylaxis: Heparin 5000 units subcu every 8 hours Monitor vital signs and address as appropriate Further recommendations pending patient's course Nurse practitioner note has been reviewed by physician. Signing provider agrees with the documented findings, assessment, and plan of care.
--- NOTE | 2017-10-26 19:29 | P.CRDCN ---
History of Present Illness Consult date: 10/26/17 History of present illness: Mr. Mcclure is a pleasant 57-year-old male past medical history significant for hypertension and chronic tobacco abuse. He also states he takes lasix for chronic lower extremity swelling. He denies history of coronary artery disease and has never seen a flight surveyor for any reason. We have been asked to see him in consultation for tachycardia. He is post-operative day #2 for perforated appendectomy. He has been febrile with a white count as well. At the time of my exam he is seen sitting up in the chair in no acute distress. He denies symptoms of chest pain, shortness of breath, palpitations or dizziness. He also denies symptoms of PND or orthopnea. Telemetry tracings reveal a sinus tachycardia. No EKG since admission. Will order one. Laboratory data reviewed, WBC 14.9, hgb 12.6, plt 188, sodium 139, potassium 3.7 , creatinine 1.16. Current cardiac medications include lisinopril 10 mg daily, Lasix 40 mg daily and potassium supplementation 10 daily. Review of Systems At the time of my exam: CONSTITUTIONAL: Denies fever. Denies chills. EYES: Denies blurred vision. Denies vision changes. Denies eye pain. EARS, NOSE, MOUTH & THROAT: Denies headache. Denies sore throat. Denies ear pain. CARDIOVASCULAR: Denies chest pain. Denies shortness of breath. Denies orthopnea. Denies PND. Denies palpitations. RESPIRATORY: Denies cough. GASTROINTESTINAL: Complains of incisional/abdominal discomfort. Denies diarrhea. Denies constipation. Denies nausea. Denies vomiting. MUSCULOSKELETAL: Denies myalgias. INTEGUMENTARY: Denies pruitis. Denies rash. NEUROLOGIC: Denies numbness. Denies tingling. Denies weakness. PSYCHIATRIC: Denies anxiety. Denies depression. ENDOCRINE: Denies fatigue. Denies weight change. Denies polydipsia. Denies polyurina. GENITOURINARY: Denies burning, hematuria or urgency with micturation. HEMATOLOGIC: Denies history of anemia. Denies bleeding. Past Medical History Past Medical History: Hypertension History of Any Multi-Drug Resistant Organisms: None Reported Past Surgical History: No Surgical Hx Reported Past Psychological History: No Psychological Hx Reported Smoking Status: Current every day smoker Past Alcohol Use History: Occasional Past Drug Use History: None Reported Medications and Allergies Home Medications Medication Instructions Recorded Confirmed Type Furosemide [Lasix] 40 mg PO DAILY 10/24/17 10/24/17 History Ibuprofen [Motrin] 800 mg PO TID PRN 10/24/17 10/24/17 History Lisinopril [Prinivil] 10 mg PO DAILY 10/24/17 10/24/17 History Potassium Chloride [K-Tab ER] 10 meq PO DAILY 10/24/17 10/24/17 History Allergies Allergy/AdvReac Type Severity Reaction Status Date / Time No Known Allergies Allergy Verified 10/24/17 13:07 Physical Exam Vitals: Vital Signs Temp Pulse Pulse Resp BP Pulse Ox 10/26/17 07:00 98.8 F 117 H 92 L 10/26/17 00:30 100.6 F H 126 H 20 135/82 93 L 10/26/17 00:00 125 H 16 10/25/17 20:00 97.9 F 125 H 16 118/77 93 L 10/25/17 16:00 123 H 20 10/25/17 15:00 99.9 F H 126 H 18 129/85 91 L Intake and Output 10/25/17 10/26/17 10/26/17 22:59 06:59 14:59 Intake Total 1874 Output Total 875 0 Balance 999 0 Intake: Intake, IV Titration 1874 Amount Lactated Ringers 1,000 ml 875 @ 125 mls/hr IV .Q8H ONE Rx#:[id number] Sodium Chloride 0.9% 1, 999 000 ml @ 999 mls/hr IV . Q1H1M ONE Rx#:[id number] Output: Gastric Drainage 100 Drainage 0 Abdomen 0 Urine 775 Uretheral (Jaramillo) 0 Other: Voiding Method Indwelling Catheter Indwelling Catheter # Voids 0 GENERAL: This is a 57-year-old male in no apparent distress at the time of my examination. Obese. HEENT: Head is atraumatic, normocephalic. Pupils are equal, round. Sclerae anicteric. Conjunctivae are clear. Mucous membranes of the mouth are moist. Neck is supple. There is no jugular venous distention. No carotid bruit is heard. LUNGS: Clear to auscultation no wheezes, rales or rhonchi. No chest wall tenderness is noted on palpation or with deep breathing. HEART: Regular rate and rhythm without murmurs, rubs or gallops. S1 and S2 heard. ABDOMEN: Abdominal incision clean dry and intact with SHIRA drain. EXTREMITIES: Trace bilateral lower extremity non-pitting edema and no calf tenderness noted. VASCULAR: Radial and dorsalis pedis pulses palpated, no evidence of clubbing. NEUROLOGIC: Patient is awake, alert and oriented x3. Results 10/26/17 05:59 10/26/17 05:59 CBC 10/26/17 Range/Units 05:59 WBC 14.9 H (3.8-10.6) k/uL RBC 4.45 (4.30-5.90) m/uL Hgb 12.6 L (13.0-17.5) gm/dL Hct 38.8 L (39.0-53.0) % Plt Count 188 (150-450) k/uL Comprehensive Metabolic Panel 10/26/17 Range/Units 05:59 Sodium 139 (137-145) mmol/L Potassium 3.7 (3.5-5.1) mmol/L Chloride 104 (98-107) mmol/L Carbon Dioxide 27 (22-30) mmol/L BUN 25 H (9-20) mg/dL Creatinine 1.16 (0.66-1.25) mg/dL Glucose 87 (74-99) mg/dL Calcium 8.5 (8.4-10.2) mg/dL Current Medications Generic Name Dose Route Start Last Admin Trade Name Freq PRN Reason Stop Dose Admin Furosemide 40 mg 10/25/17 09:00 10/26/17 09:24 Lasix PO 40 mg DAILY JUVENCIO Administration Heparin Sodium (Porcine) 5,000 unit 10/25/17 00:00 10/26/17 09:24 Heparin SQ 5,000 unit Q8HR JUVENCIO Administration Piperacillin/Tazobactam/ 50 mls @ 12.5 mls/hr 10/25/17 00:00 10/26/17 08:29 Dextrose 3.375 gm/ IV Solution IVPB 12.5 mls/hr Q8HR JUVENCIO Administration Lactated Ringer's 1,000 mls @ 125 mls/hr 10/26/17 09:00 10/26/17 09:24 Lactated Ringers IV 125 mls/hr .Q8H JUVENCIO Administration Lisinopril 10 mg 10/25/17 09:00 10/26/17 09:24 Zestril PO 10 mg DAILY JUVENCIO Administration Morphine Sulfate 4 mg 10/24/17 21:03 10/26/17 02:23 Morphine Sulfate IVP 4 mg Q3HR PRN Administration Moderate to Severe Pain Naloxone HCl 0.2 mg 10/24/17 21:03 Narcan IV Q2M PRN Opioid Reversal Ondansetron HCl 4 mg 10/24/17 21:03 Zofran IVP Q8HR PRN Nausea And Vomiting Pantoprazole Sodium 40 mg 10/25/17 09:00 10/26/17 09:24 Protonix IV 40 mg DAILY JUVENCIO Administration Intake and Output 10/25/17 10/26/17 10/26/17 22:59 06:59 14:59 Intake Total 1874 Output Total 875 0 Balance 999 0 Intake: Intake, IV Titration 1874 Amount Lactated Ringers 1,000 ml 875 @ 125 mls/hr IV .Q8H ONE Rx#:[id number] Sodium Chloride 0.9% 1, 999 000 ml @ 999 mls/hr IV . Q1H1M [facility] Rx#:[id number] Output: Gastric Drainage 100 Drainage 0 Abdomen 0 Urine 775 Uretheral (Jaramillo) 0 Other: Voiding Method Indwelling Catheter Indwelling Catheter # Voids 0 10/26/17 05:59 10/26/17 05:59 Assessment and Plan Assessment: ASSESSMENT 1. Tachycardia 2. Perforated appendectomy post-operative day #2 3. Hypertension 4. Chronic tobacco use 5. Obestiy, BMI 38 6. Leukocytosis 7. Febrile illness 8. Urinary retention. PLAN Obtain 12-lead EKG. Will review echocardiogram. Add small dose beta ana 12.5mg BID. Tachycardia probably related to leukocytosis and febrile illness. Agree with IV fluids started per surgery. Further recommendations to follow. Thank you kindly for this consultation. Nurse Practitioner note has been reviewed, I agree with a documented findings and plan of care. Patient was seen and examined.
[2017-10-26] MEDS ORDERED: SODIUM CHLORIDE 0.9% 1,000 ML IV ONE (19:45)
--- NOTE | 2017-10-26 19:45 | ECHOF ---
Referral Reason:sinus tachcardia MEASUREMENTS -------- HEIGHT: 172.7 cm WEIGHT: 113.4 kg BP: 135/82 IVSd: 1.1 cm (0.6 - 1.1) LVIDd: 3.7 cm (3.9 - 5.3) LVPWd: 1.4 cm (0.6 - 1.1) IVSs: 1.8 cm LVIDs: 2.4 cm LVPWs: 1.8 cm Ao Diam: 3.6 cm (2.0 - 3.7) AV Cusp: 2.3 cm (1.5 - 2.6) LA Diam: 3.7 cm (2.7 - 3.8) MV EXCURSION: 20.130 mm (> 18.000) MV EF SLOPE: 107 mm/s (70 - 150) EPSS: 0.6 cm MV E Hank: 0.73 m/s MV DecT: 181 ms MV A Hank: 1.10 m/s MV E/A Ratio: 0.67 RAP: 5.00 mmHg RVSP: 19.35 mmHg FINDINGS -------- Resting tachycardia (HR>100bpm). This was a technically difficult study with suboptimal views. The left ventricular size is normal. There is mild concentric left ventricular hypertrophy. Overa ll left ventricular systolic function is normal with, an EF between 60 - 65 %. The right ventricle is normal in size and function. The left atrium is normal in size. The right atrium is normal in size. The aortic valve is trileaflet, and appears structurally normal. No aortic stenosis or regurgitation. There is trace mitral regurgitation. Trace tricuspid regurgitation present. The right ventricular systolic pressure, as measured by Dopp ler, is 19.35mmHg. Pulmonic valve appears structurally normal. The aortic root size is normal. The pericardium is normal. CONCLUSIONS -------- 1. Resting tachycardia (HR>100bpm). 2. This was a technically difficult study with suboptimal views. 3. The left ventricular size is normal. 4. There is mild concentric left ventricular hypertrophy. 5. Overall left ventricular systolic function is normal with, an EF between 60 - 65 %. 6. The right ventricle is normal in size and function. 7. The left atrium is normal in size. 8. The right atrium is normal in size. 9. Lumason used 10. The aortic valve is trileaflet, and appears structurally normal. No aortic stenosis or regurgitat ion. 11. There is trace mitral regurgitation. 12. Trace tricuspid regurgitation present. 13. The right ventricular systolic pressure, as measured by Doppler, is 19.35mmHg. 14. Pulmonic valve appears structurally normal. 15. The aortic root size is normal. 16. The pericardium is normal. SILICA FILTER OPERATOR: Karon Castillo RDCS
[2017-10-26] MEDS ORDERED: METOPROLOL TARTRATE 25 MG TAB PO STA (19:47)
[2017-10-26] MEDS ORDERED: METOPROLOL TARTRATE 12.5 MG TAB PO SCH (21:00)
[2017-10-26] MEDS: METOPROLOL TARTRATE 25 MG TAB PO SCH (23:28)
--- NOTE | 2017-10-26 23:37 | PN ---
PROGRESS NOTE DATE OF SERVICE: 10/26/2017 REASON FOR FOLLOWUP: Secondary peritonitis with perforated appendicitis. INTERVAL HISTORY: The patient did have a low-grade fever of 100.6 at midnight; however, he was afebrile this morning. He did seem to have a problem with urinary retention and hematuria, for which Urology saw the patient and placed a Jaramillo catheter. The patient still complains of some abdominal pain, but no worsening, controlled with pain medication. No nausea or vomiting. Denies having any chest pain or shortness of breath or cough. PHYSICAL EXAMINATION: Blood pressure 119/62 with a pulse of 112, temperature of 99.7. He is 93% on 4 L nasal cannula. General description is a middle-aged male lying in bed in no distress. RESPIRATORY SYSTEM: Unlabored breathing with decreased breath sounds in the bases. No wheeze. HEART: S1, S2. Regular rate and rhythm. ABDOMEN: Soft. Slightly distended. No guarding or rigidity. EXTREMITIES: No edema of the feet. LABS: Hemoglobin is 12.6, white count 14.9, BUN of 25, creatinine 1.16. The appendiceal culture is showing E coli and Klebsiella pneumoniae, both of them sensitive to Zosyn as well as to Unasyn. DIAGNOSTIC IMPRESSION AND PLAN: Patient with secondary peritonitis from perforated appendicitis. Cultures remain positive for E coli, Klebsiella pneumoniae. Antibiotic will be adjusted to Unasyn 3 grams q.6. That will be transitioned to oral Augmentin once his overall activity improves and closer to discharge. Continue with supportive care. MMODL / IJN: [id number] /
[2017-10-27] MEDS ORDERED: ACETAMINOPHEN IV (For NPO) 1,000 MG in EMPTY BAG 1 BAG IVPB ONE (01:26)
[2017-10-27] MEDS: SODIUM CHLORIDE 0.9% 1,000 ML IV SCH ×5 (01:36→21:26)
[2017-10-27 06:52] LABS: Basophils % (A) 0 %; Eosinophils % (A) 0 %; HCT 34.9 % (39.0-53.0); Lymphocytes # (A) 0.6 k/uL (1.0-4.8); Lymphocytes % (A) 5 %; MCH 29.3 pg (25.0-35.0); MCHC 34.2 g/dL (31.0-37.0); MCV 85.5 fL (80.0-100.0); Mean Platelet Volume 7.8; Monocytes # (A) 0.4 k/uL (0-1.0); Monocytes % (A) 3 %; Neutrophils # (A) 11.1 k/uL (1.3-7.7); Neutrophils % (A) 89 %; Platelet Count 172 k/uL (150-450); RBC 4.09 m/uL (4.30-5.90); RDW 12.3 % (11.5-15.5); WBC 12.5 k/uL (3.8-10.6)
[2017-10-27 07:05] LABS: Potassium 3.3 mmol/L (3.5-5.1)
[2017-10-27] MEDS ORDERED: POTASSIUM CHLORIDE ER 20 MEQ TAB.ER PO STA ×2 (07:18→10:13)
[2017-10-27] MEDS: PANTOPRAZOLE 40 MG/10 ML VIAL IV SCH (07:39)
[2017-10-27] MEDS: HEPARIN SODIUM,PORCINE 5,000 UNIT/ML 1 ML VIAL SQ SCH ×2 (07:40→17:24)
[2017-10-27] MEDS: PIPERACILLIN-TAZOBACTAM 3.375 GM in DEXTROSE/WATER 1 50ML.BAG IVPB SCH (07:41)
[2017-10-27] MEDS: METOPROLOL TARTRATE 25 MG TAB PO SCH ×3 (07:41→21:25)
[2017-10-27] MEDS: LISINOPRIL 10 MG TAB PO SCH (07:41)
[2017-10-27] MEDS: FUROSEMIDE 40 MG TAB PO SCH (07:41)
--- NOTE | 2017-10-27 09:23 | P.PN ---
Subjective Progress Note Date: 10/27/17 10/26/2017 57-year-old male who presented to the emergency room on 10/24/2017 with a chief complaint of abdominal pain. The patient was found to have appendicitis and underwent laparoscopic appendectomy converted to open appendectomy with Dr. Mendez on 10/24/2017. His appendix was found to be perforated and was found to have intra-abdominal peritonitis. Dr. Ma was consulted for medical management. The patient is seen in evaluated sitting up in the chair. Dr. Whiteside is on consult for infectious disease. He is currently receiving Zosyn every 8 hours IV. Preliminary cultures from the patient's appendix are positive for gram-negative bacilli. The patient had an indwelling urinary catheter placed for surgery which was found to be not properly draining. The patient was unable to void since that time. Urology was consulted. A new indwelling coud catheter was placed per urology. Per nursing, the patient had multiple blood clots present. The patient has been tachycardic with a rate in the 110-120s. Cardiology was consulted today and an echocardiogram has been ordered. The patient was febrile overnight with a temperature of 100.6F. This morning he is afebrile with a temperature of 98.8. He is on 4 L nasal cannula with oxygen saturations greater than 92%. The patient had an NG tube to low intermittent suction which has since been discontinued this morning. SHIRA drain is in place with serosanguineous drainage. The patient denies chest pain or pressure. Denies shortness of breath. Denies nausea or vomiting. Denies flatus. No bowel movement. Denies palpitations. States his pain is tolerable at this time. 10/27/2017 Patient seen and examined at the bedside on rounds with Dr. Ma. Patient is awake and alert sitting up in the bed. Patient is tolerating a clear liquid diet. Patient denies nausea or vomiting. Patient states his pain is tolerable at this time. Indwelling urinary catheter remains intact with claudia urine noted. Patient was febrile throughout the night with a temperature of 101.7. He was started on metoprolol per cardiology for tachycardia. Patient denies any concerns or complaints at this time. Objective - Vital Signs Vital signs: Vital Signs Temp 101.7 F H 10/27/17 01:21 Pulse 94 10/27/17 01:21 Resp 18 10/27/17 00:00 BP 135/85 10/27/17 01:21 Pulse Ox 90 L 10/27/17 01:21 Intake & Output 10/26/17 10/27/17 10/27/17 18:59 06:59 18:59 Intake Total 3200 720 Output Total 2045 910 Balance -2044 2290 720 Intake: IV 600 Sodium Chloride 0.9% 1, 600 000 ml @ 150 mls/hr IV . Q6H40M [facility] Rx#:[id number] Intake, IV Titration 2800 Amount ACETAMINOPHEN IV (For NPO 200 ) 1,000 mg In Empty Bag 1 bag @ 400 mls/hr IVPB ONCE ONE Rx#:[id number] Piperacillin-Tazobactam 3 100 .375 gm In Dextrose/Water 1 50ml.bag @ 12.5 mls/hr IVPB Q8HR [facility] Rx#: [id number] Sodium Chloride 0.9% 1, 1500 000 ml @ 150 mls/hr IV . Q6H40M [facility] Rx#:[id number] Sodium Chloride 0.9% 1, 1000 000 ml @ 200 mls/hr IV . Q5H ONE Rx#:[id number] Oral 400 120 Output: Drainage 45 10 Abdomen 45 10 Urine 2000 900 Other: Voiding Method Indwelling Catheter Indwelling Catheter # Voids 2 - Exam GENERAL: This is a 57-year-old male in no apparent distress at the time of examination. Pleasant and cooperative. HEENT: Head is atraumatic, normocephalic. Pupils are equal, round, and reactive to light. Sclerae anicteric. Conjunctivae are clear. Mucus membranes of the mouth are moist. Neck is supple. RESPIRATORY: Clear to ausculation. No wheezes, rales, or rhonchi. No use of accessory muscles. Patient maintaining oxygen saturation greater than 92%. No chest wall tenderness is noted on palpation or with deep breathing. CARDIOVASCULAR: Regular rate and rhythm. S1 and S2 noted. No JVD noted. No S3 or S4 noted. GASTROINTESTINAL: No distention noted. Abdomen soft and round. Bowel sounds auscultated x 4 quadrants. SHIRA drain present with serosanguineous drainage. No pain or tenderness noted upon palpation. INTEGUMENTARY: No cyanosis. No jaundice. No rashes noted. No cellulitis noted. EXTREMITIES: 2+ peripheral pulses. No evidence of peripheral edema. No calf tenderness noted. NEUROLOGIC: Cranial nerves II-XII intact. PSYCHIATRIC: Awake, alert, and oriented X 3. Appropriate affect. Intact judgement and insight. - Labs CBC & Chem 7: 10/27/17 06:13 10/27/17 06:13 Labs: Abnormal Lab Results - Last 24 Hours (Table) 10/27/17 10/27/17 Range/Units 06:13 06:13 WBC 12.5 H (3.8-10.6) k/uL RBC 4.09 L (4.30-5.90) m/uL Hgb 12.0 L (13.0-17.5) gm/dL Hct 34.9 L (39.0-53.0) % Neutrophils # 11.1 H (1.3-7.7) k/uL Lymphocytes # 0.6 L (1.0-4.8) k/uL Potassium 3.3 L (3.5-5.1) mmol/L BUN 24 H (9-20) mg/dL Calcium 8.0 L (8.4-10.2) mg/dL Microbiology - Last 24 Hours (Table) 10/24/17 13:15 Blood Culture Gram Stain - Preliminary Blood 10/24/17 18:30 Gram Stain - Final Appendix Wound Culture - Final Escherichia coli Klebsiella pneumoniae 10/24/17 13:15 Blood Culture - Preliminary Blood No Growth after 48 hours Assessment and Plan Plan: ASSESSMENT: Laparoscopic appendectomy converted to open appendectomy secondary to perforated appendix with intra-abdominal stool, POD #3 Sepsis with elevated lactic acid, leukocytosis, and tachycardia, secondary to above Essential hypertension Tachycardia, cardiology consulted Urinary retention with blood clots noted, s/p insertion of indwelling urinary catheter per urology Nicotine dependence, patient is a current everyday cigarette smoker Obesity: BMI 38.0 PLAN: Continue postoperative care per Dr. Mendez Advance diet per surgery Cardiology on consult for tachycardia Continue metoprolol per cardiology for tachycardia Activity as tolerated Incentive spirometer 10 times an hour while awake Pain control Urology on consult Continue indwelling urinary catheter Infectious disease on consult Continue Zosyn every 8 hours IV Home meds as appropriate Monitor labs Smoking cessation recommended GI prophylaxis: Protonix 40 mg IV Daily DVT prophylaxis: Heparin 5000 units subcu every 8 hours Monitor vital signs and address as appropriate Further recommendations pending patient's course Nurse practitioner note has been reviewed by physician. Signing provider agrees with the documented findings, assessment, and plan of care.
--- NOTE | 2017-10-27 10:49 | P.PN ---
Subjective Progress Note Date: 10/27/17 Patient seen and examined at bedside. He had 1 bowel movement overnight. He also had a fever overnight that was broken with IV Tylenol. His tachycardia improved after cardiology further resuscitated the patient and began a beta ana. He is currently refusing to ambulate. He states that his abdominal pain is improving. He is not using his incentive spirometer. Objective - Vital Signs Vital signs: Vital Signs Temp 98.5 F 10/27/17 07:00 Pulse 83 10/27/17 07:00 Resp 16 10/27/17 07:00 BP 132/81 10/27/17 07:00 Pulse Ox 96 10/27/17 07:00 Intake & Output 10/26/17 10/27/17 10/27/17 18:59 06:59 18:59 Intake Total 3200 720 Output Total 2045 910 10 Balance -2044 2290 710 Intake: IV 600 Sodium Chloride 0.9% 1, 600 000 ml @ 150 mls/hr IV . Q6H40M [facility] Rx#:[id number] Intake, IV Titration 2800 Amount ACETAMINOPHEN IV (For NPO 200 ) 1,000 mg In Empty Bag 1 bag @ 400 mls/hr IVPB ONCE ONE Rx#:[id number] Piperacillin-Tazobactam 3 100 .375 gm In Dextrose/Water 1 50ml.bag @ 12.5 mls/hr IVPB Q8HR [facility] Rx#: [id number] Sodium Chloride 0.9% 1, 1500 000 ml @ 150 mls/hr IV . Q6H40M [facility] Rx#:[id number] Sodium Chloride 0.9% 1, 1000 000 ml @ 200 mls/hr IV . Q5H ONE Rx#:[id number] Oral 400 120 Output: Drainage 45 10 10 Abdomen 45 10 10 Urine 2000 900 Other: Voiding Method Indwelling Catheter Indwelling Catheter Indwelling Catheter # Voids 2 - Constitutional General appearance: Present: cooperative, no acute distress - EENT Eyes: Present: PERRLA ENT: Present: hearing grossly normal - Respiratory Details: No difficulty with respiration - Gastrointestinal Gastrointestinal Comment(s): Soft, appropriate tenderness, nondistended, no rebound, no guarding, incision sites are clean, dry and intact, SHIRA drain in place with serosanguineous output - Musculoskeletal Musculoskeletal: Present: generalized weakness - Psychiatric Psychiatric: Present: A&O x's 3 - Labs CBC & Chem 7: 10/27/17 06:13 10/27/17 06:13 Labs: Abnormal Lab Results - Last 24 Hours (Table) 10/27/17 10/27/17 Range/Units 06:13 06:13 WBC 12.5 H (3.8-10.6) k/uL RBC 4.09 L (4.30-5.90) m/uL Hgb 12.0 L (13.0-17.5) gm/dL Hct 34.9 L (39.0-53.0) % Neutrophils # 11.1 H (1.3-7.7) k/uL Lymphocytes # 0.6 L (1.0-4.8) k/uL Potassium 3.3 L (3.5-5.1) mmol/L BUN 24 H (9-20) mg/dL Calcium 8.0 L (8.4-10.2) mg/dL Microbiology - Last 24 Hours (Table) 10/24/17 13:15 Blood Culture Gram Stain - Preliminary Blood 10/24/17 18:30 Gram Stain - Final Appendix Wound Culture - Final Escherichia coli Klebsiella pneumoniae 10/24/17 13:15 Blood Culture - Preliminary Blood No Growth after 48 hours Assessment and Plan (1) Acute appendicitis Narrative/Plan: Laparoscopic appendectomy converted to open appendectomy, postoperative day #3 - Continue Zosyn, infectious disease consult was placed due to intra-abdominal stool secondary to perforated appendicitis - Begin clear liquid diet - Persistent tachycardia improved after evaluation by cardiology, further resuscitation was provided along with beta ana - Continue IV fluid resuscitation - Leukocytosis improved from yesterday - Has had febrile episodes 2 nights in a row, evaluated wound with no evidence of wound infection, patient is not using incentive spirometry and could be secondary to atelectasis, we will continue to monitor and we will monitor leukocytosis - Continue DVT prophylaxis with subcutaneous heparin - Increase activity, incentive spirometry - I did discuss the importance of this with the patient for his recovery - Pain control - Continue Jaramillo to monitor urine output status post surgical procedure, appreciate placement by Dr. Chanel, urology - Prognosis guarded Current Visit: Yes Status: Acute Code(s): K35.80 - UNSPECIFIED ACUTE APPENDICITIS SNOMED Code(s): 09081966
--- NOTE | 2017-10-27 11:25 | P.PN ---
Subjective Progress Note Date: 10/27/17 Mr. Mcclure is a pleasant 57-year-old male past medical history significant for hypertension and chronic tobacco abuse. He also states he takes lasix for chronic lower extremity swelling. He denies history of coronary artery disease and has never seen a java swing developer for any reason. We have been asked to see him in consultation for tachycardia. He is post-operative day #2 for perforated appendectomy. He has been febrile with a white count as well. At the time of my exam he is seen sitting up in the chair in no acute distress. He denies symptoms of chest pain, shortness of breath, palpitations or dizziness. He also denies symptoms of PND or orthopnea. Telemetry tracings reveal a sinus tachycardia. No EKG since admission. Will order one. Laboratory data reviewed, WBC 14.9, hgb 12.6, plt 188, sodium 139, potassium 3.7 , creatinine 1.16. Current cardiac medications include lisinopril 10 mg daily, Lasix 40 mg daily and potassium supplementation 10 daily. 10/27/2017 Mr. Mcclure is seen and examined today in follow-up. He had ongoing tachcardia last night and lopressor was increased to 25mg TID and more fluid was given. This morning he is sitting up in bed in no acute distress. He continues to be febrile this morning. Blood pressure 132/81, heart rate 83. No EKG was done as ordered yesterday, will request again today. WBC 12.5, hemoglobin 12.0, platelets 172, potassium 3.3, creatinine 1.10. Echocardiogram reviewed, preserved left ventricular systolic function with ejection fraction 60-65% and mild concentric left ventricular hypertrophy. Objective - Vital Signs Vital signs: Vital Signs Temp 98.5 F 10/27/17 07:00 Pulse 83 10/27/17 07:00 Resp 16 10/27/17 07:00 BP 132/81 10/27/17 07:00 Pulse Ox 96 10/27/17 07:00 Intake & Output 10/26/17 10/27/17 10/27/17 18:59 06:59 18:59 Intake Total 3200 720 Output Total 2045 910 120 Balance -2044 2290 600 Intake: IV 600 Sodium Chloride 0.9% 1, 600 000 ml @ 150 mls/hr IV . Q6H40M [facility] Rx#:[id number] Intake, IV Titration 2800 Amount ACETAMINOPHEN IV (For NPO 200 ) 1,000 mg In Empty Bag 1 bag @ 400 mls/hr IVPB ONCE ONE Rx#:[id number] Piperacillin-Tazobactam 3 100 .375 gm In Dextrose/Water 1 50ml.bag @ 12.5 mls/hr IVPB Q8HR [facility] Rx#: [id number] Sodium Chloride 0.9% 1, 1500 000 ml @ 150 mls/hr IV . Q6H40M [facility] Rx#:[id number] Sodium Chloride 0.9% 1, 1000 000 ml @ 200 mls/hr IV . Q5H ONE Rx#:[id number] Oral 400 120 Output: Drainage 45 10 120 Abdomen 45 10 120 Urine 2000 900 Other: Voiding Method Indwelling Catheter Indwelling Catheter Indwelling Catheter # Voids 2 - Exam GENERAL: Well-appearing, well-nourished and in no acute distress. NECK: Supple without JVD or thyromegaly. LUNGS: Breath sounds clear to auscultation bilaterally. Respiration equal and unlabored. No wheezes, rales or rhonchi. HEART: Regular rate and rhythm without murmurs, rubs or gallops. S1 and S2 heard. EXTREMITIES: Normal range of motion, trace nonpitting bilateral lower extremity edema. No clubbing or cyanosis. Peripheral pulses intact and strong. - Labs CBC & Chem 7: 10/27/17 06:13 10/27/17 06:13 Labs: Abnormal Lab Results - Last 24 Hours (Table) 10/27/17 10/27/17 Range/Units 06:13 06:13 WBC 12.5 H (3.8-10.6) k/uL RBC 4.09 L (4.30-5.90) m/uL Hgb 12.0 L (13.0-17.5) gm/dL Hct 34.9 L (39.0-53.0) % Neutrophils # 11.1 H (1.3-7.7) k/uL Lymphocytes # 0.6 L (1.0-4.8) k/uL Potassium 3.3 L (3.5-5.1) mmol/L BUN 24 H (9-20) mg/dL Calcium 8.0 L (8.4-10.2) mg/dL Microbiology - Last 24 Hours (Table) 10/24/17 13:15 Blood Culture Gram Stain - Preliminary Blood 10/24/17 18:30 Gram Stain - Final Appendix Wound Culture - Final Escherichia coli Klebsiella pneumoniae 10/24/17 13:15 Blood Culture - Preliminary Blood No Growth after 48 hours Assessment and Plan Assessment: ASSESSMENT 1. Tachycardia 2. Perforated appendectomy post-operative day #2 3. Hypertension 4. Chronic tobacco use 5. Obestiy, BMI 38 6. Leukocytosis 7. Febrile illness 8. Urinary retention. PLAN Obtain 12-lead EKG. Continue lopressor 25 mg TID. Tachycardia probably related to leukocytosis and febrile illness. We will continue to follow as needed. Please feel free to call with questions or concerns. Nurse Practitioner note has been reviewed, I agree with a documented findings and plan of care. Patient was seen and examined.
[2017-10-27] MEDS: AMPICILLIN-SULBACTAM 3 GM in SODIUM CHLORIDE 0.9% 100 ML IVPB SCH ×2 (17:23→17:52)
--- NOTE | 2017-10-27 20:56 | PN ---
PROGRESS NOTE DATE OF SERVICE: 10/27/2017 REASON FOR FOLLOWUP: Secondary peritonitis from perforated appendicitis. INTERVAL HISTORY: The patient is afebrile. He has been breathing comfortably. Still complains of abdominal pain, though. No nausea. No vomiting or any chest pain. PHYSICAL EXAMINATION: Blood pressure 142/86 with a pulse of 110, temperature 98.6. He is 90% on room air. General description is a middle-aged male lying in bed in no distress. RESPIRATORY SYSTEM: Unlabored breathing with decreased breath sounds in the bases. No wheeze. HEART: S1, S2. Regular rate and rhythm. ABDOMEN: Soft. Mildly distended and tender. No guarding or rigidity. LABS: Hemoglobin 12 with a white count of 12.5, BUN of 24, creatinine 1.10. DIAGNOSTIC IMPRESSION AND PLAN: Patient with secondary peritonitis from a perforated appendicitis, status post open appendectomy. Patient at this time will continue on Unasyn for at least another 24 to 48 hours to make sure the patient is afebrile for these 24 hours and white count normalizes before transitioning him to oral. Plan of care discussed with the surgeon. Continue supportive care. MMODL / IJN: [id number] /
[2017-10-27] MEDS: HYDROmorphone 2 MG TAB PO PRN (22:01)
[2017-10-28] MEDS: AMPICILLIN-SULBACTAM 3 GM in SODIUM CHLORIDE 0.9% 100 ML IVPB SCH ×5 (00:54→23:33)
[2017-10-28] MEDS: HEPARIN SODIUM,PORCINE 5,000 UNIT/ML 1 ML VIAL SQ SCH ×4 (00:54→23:33)
[2017-10-28 07:34] LABS: Basophils % (A) 0 %; Eosinophils % (A) 0 %; HCT 37.1 % (39.0-53.0); Lymphocytes # (A) 0.5 k/uL (1.0-4.8); Lymphocytes % (A) 3 %; MCH 29.9 pg (25.0-35.0); MCHC 35.2 g/dL (31.0-37.0); MCV 85.1 fL (80.0-100.0); Mean Platelet Volume 8.1; Monocytes # (A) 0.5 k/uL (0-1.0); Monocytes % (A) 4 %; Neutrophils # (A) 13.2 k/uL (1.3-7.7); Neutrophils % (A) 90 %; Platelet Count 195 k/uL (150-450); RBC 4.35 m/uL (4.30-5.90); RDW 12.3 % (11.5-15.5); WBC 14.7 k/uL (3.8-10.6)
[2017-10-28 07:58] LABS: Anion Gap 11 mmol/L; Blood Urea Nitrogen 19 mg/dL (9-20); Calcium 7.6 mg/dL (8.4-10.2); Carbon Dioxide 22 mmol/L (22-30); Chloride 105 mmol/L (98-107); Glucose 123 mg/dL (74-99); Sodium 138 mmol/L (137-145)
[2017-10-28 08:06] LABS: Potassium 2.8 mmol/L (3.5-5.1)
[2017-10-28] MEDS ORDERED: Potassium Replacement Protocol 1 EACH MISC MISCELLANE PRN (08:17)
[2017-10-28] MEDS ORDERED: SODIUM CHLORIDE 0.9% 1,000 ML with POTASSIUM CHLORIDE 20 MEQ IV SCH ×2 (08:45)
[2017-10-28] MEDS: FUROSEMIDE 40 MG TAB PO SCH (10:32)
[2017-10-28] MEDS: LISINOPRIL 10 MG TAB PO SCH (10:32)
[2017-10-28] MEDS: PANTOPRAZOLE 40 MG/10 ML VIAL IV SCH (10:32)
[2017-10-28] MEDS: METOPROLOL TARTRATE 25 MG TAB PO SCH ×3 (10:32→21:24)
[2017-10-28] MEDS: POTASSIUM CHLORIDE ER 20 MEQ TAB.ER PO SCH ×5 (10:33→22:30)
--- NOTE | 2017-10-28 12:54 | P.PN ---
Subjective Progress Note Date: 10/28/17 10/26/2017 57-year-old male who presented to the emergency room on 10/24/2017 with a chief complaint of abdominal pain. The patient was found to have appendicitis and underwent laparoscopic appendectomy converted to open appendectomy with Dr. Mendez on 10/24/2017. His appendix was found to be perforated and was found to have intra-abdominal peritonitis. Dr. Ma was consulted for medical management. The patient is seen in evaluated sitting up in the chair. Dr. Whiteside is on consult for infectious disease. He is currently receiving Zosyn every 8 hours IV. Preliminary cultures from the patient's appendix are positive for gram-negative bacilli. The patient had an indwelling urinary catheter placed for surgery which was found to be not properly draining. The patient was unable to void since that time. Urology was consulted. A new indwelling coud catheter was placed per urology. Per nursing, the patient had multiple blood clots present. The patient has been tachycardic with a rate in the 110-120s. Cardiology was consulted today and an echocardiogram has been ordered. The patient was febrile overnight with a temperature of 100.6F. This morning he is afebrile with a temperature of 98.8. He is on 4 L nasal cannula with oxygen saturations greater than 92%. The patient had an NG tube to low intermittent suction which has since been discontinued this morning. SHIRA drain is in place with serosanguineous drainage. The patient denies chest pain or pressure. Denies shortness of breath. Denies nausea or vomiting. Denies flatus. No bowel movement. Denies palpitations. States his pain is tolerable at this time. 10/27/2017 Patient seen and examined at the bedside on rounds with Dr. Ma. Patient is awake and alert sitting up in the bed. Patient is tolerating a clear liquid diet. Patient denies nausea or vomiting. Patient states his pain is tolerable at this time. Indwelling urinary catheter remains intact with claudia urine noted. Patient was febrile throughout the night with a temperature of 101.7. He was started on metoprolol per cardiology for tachycardia. Patient denies any concerns or complaints at this time. 10/28/2017 Patient seen and examined at the bedside on rounds with Dr. Ma. Patient states his pain is tolerable at this time. Patient states he has been having multiple bowel movements. C. diff was negative. SHIRA drain remains intact with serous drainage. Indwelling urinary catheter is present with claudia colored urine. Patient's potassium is low this morning at 2.8. Potassium protocol initiated. Patient's tachycardia has improved with the initiation of metoprolol per cardiology. Patient has been afebrile for the last 24 hours. WBC is up to 14.7 from 12.5. Infectious disease is on consult. Yesterday, Dr. Whiteside recommended continuing Unasyn for at least another 24-48 hours. Culture from appendix reveals Escherichia coli and Klebsiella pneumoniae, both susceptible to Unasyn. Objective - Vital Signs Vital signs: Vital Signs Temp 98.5 F 10/28/17 07:00 Pulse 92 10/28/17 07:00 Resp 16 10/28/17 07:00 BP 117/77 10/28/17 07:00 Pulse Ox 93 L 10/28/17 07:00 Intake & Output 10/27/17 10/28/17 10/28/17 18:59 06:59 18:59 Intake Total 920 2850 Output Total 2130 515 Balance -1210 2335 Intake: IV 600 1200 Sodium Chloride 0.9% 1, 600 1200 000 ml @ 150 mls/hr IV . Q6H40M [facility] Rx#:[id number] Intake, IV Titration 200 1050 Amount Ampicillin-Sulbactam 3 gm 100 In Sodium Chloride 0.9% 100 ml @ 100 mls/hr IVPB Q6HR [facility] Rx#:[id number] Piperacillin-Tazobactam 3 50 .375 gm In Dextrose/Water 1 50ml.bag @ 12.5 mls/hr IVPB Q8HR [facility] Rx#: [id number] Sodium Chloride 0.9% 1, 100 1000 000 ml @ 100 mls/hr IV . Q10H [facility] Rx#:[id number] Oral 120 600 Output: Drainage 280 15 Abdomen 280 15 Urine 1850 500 Uretheral (Campos) 1000 500 Other: Voiding Method Indwelling Catheter Indwelling Catheter Indwelling Catheter # Bowel Movements 2 2 - Exam GENERAL: This is a 57-year-old male in no apparent distress at the time of examination. Pleasant and cooperative. HEENT: Head is atraumatic, normocephalic. Pupils are equal, round, and reactive to light. Sclerae anicteric. Conjunctivae are clear. Mucus membranes of the mouth are moist. Neck is supple. RESPIRATORY: Clear to ausculation. No wheezes, rales, or rhonchi. No use of accessory muscles. Patient maintaining oxygen saturation greater than 92%. No chest wall tenderness is noted on palpation or with deep breathing. CARDIOVASCULAR: Regular rate and rhythm. S1 and S2 noted. No JVD noted. No S3 or S4 noted. GASTROINTESTINAL: No distention noted. Abdomen soft and round. Bowel sounds auscultated x 4 quadrants. SHIRA drain present with serous drainage. No pain or tenderness noted upon palpation. INTEGUMENTARY: No cyanosis. No jaundice. No rashes noted. No cellulitis noted. EXTREMITIES: 2+ peripheral pulses. No evidence of peripheral edema. No calf tenderness noted. NEUROLOGIC: Cranial nerves II-XII intact. PSYCHIATRIC: Awake, alert, and oriented X 3. Appropriate affect. Intact judgement and insight. - Labs CBC & Chem 7: 10/28/17 06:43 10/28/17 06:43 Labs: Abnormal Lab Results - Last 24 Hours (Table) 10/28/17 10/28/17 Range/Units 06:43 06:43 WBC 14.7 H (3.8-10.6) k/uL Hct 37.1 L (39.0-53.0) % Neutrophils # 13.2 H (1.3-7.7) k/uL Lymphocytes # 0.5 L (1.0-4.8) k/uL Potassium 2.8 L* (3.5-5.1) mmol/L Glucose 123 H (74-99) mg/dL Calcium 7.6 L (8.4-10.2) mg/dL Microbiology - Last 24 Hours (Table) 10/24/17 13:15 Blood Culture Gram Stain - Preliminary Blood Blood Culture - Preliminary 10/24/17 13:15 Blood Culture - Preliminary Blood No Growth after 72 hours Assessment and Plan Plan: ASSESSMENT: Laparoscopic appendectomy converted to open appendectomy secondary to perforated appendix with intra-abdominal stool, POD #4 Sepsis with elevated lactic acid, leukocytosis, and tachycardia, secondary to above, improving Essential hypertension Tachycardia, cardiology consulted Urinary retention with blood clots noted, s/p insertion of indwelling urinary catheter per urology Nicotine dependence, patient is a current everyday cigarette smoker Obesity: BMI 38.0 PLAN: Continue postoperative care per Dr. Mendez Advance diet per surgery Replace potassium per protocol. Will also add potassium to IV fluids and resume patients normal home dose of Kdur 10meq daily Discontinue campos catheter when okay with surgery Cardiology on consult for tachycardia Continue metoprolol per cardiology Activity as tolerated Incentive spirometer 10 times an hour while awake Pain control Infectious disease on consult. Continue Unasyn Home meds as appropriate Monitor labs Smoking cessation recommended GI prophylaxis: Protonix 40 mg IV Daily DVT prophylaxis: Heparin 5000 units subcu every 8 hours Monitor vital signs and address as appropriate Further recommendations pending patient's course Nurse practitioner note has been reviewed by physician. Signing provider agrees with the documented findings, assessment, and plan of care.
--- NOTE | 2017-10-28 14:57 | P.PN ---
Subjective Progress Note Date: 10/28/17 Patient seen and examined at bedside. He states he is feeling better today. Afebrile overnight. He is out of bed and in chair currently. Using incentive spirometry sparingly. Attempting ambulation. Objective - Vital Signs Vital signs: Vital Signs Temp 97.9 F 10/28/17 14:33 Pulse 89 10/28/17 14:33 Resp 15 10/28/17 14:33 BP 142/82 10/28/17 14:33 Pulse Ox 95 10/28/17 14:33 Intake & Output 10/27/17 10/28/17 10/28/17 18:59 06:59 18:59 Intake Total 920 2850 Output Total 2130 515 Balance -1210 2335 Intake: IV 600 1200 Sodium Chloride 0.9% 1, 600 1200 000 ml @ 150 mls/hr IV . Q6H40M [facility] Rx#:[id number] Intake, IV Titration 200 1050 Amount Ampicillin-Sulbactam 3 gm 100 In Sodium Chloride 0.9% 100 ml @ 100 mls/hr IVPB Q6HR [facility] Rx#:[id number] Piperacillin-Tazobactam 3 50 .375 gm In Dextrose/Water 1 50ml.bag @ 12.5 mls/hr IVPB Q8HR [facility] Rx#: [id number] Sodium Chloride 0.9% 1, 100 1000 000 ml @ 100 mls/hr IV . Q10H [facility] Rx#:[id number] Oral 120 600 Output: Drainage 280 15 Abdomen 280 15 Urine 1850 500 Uretheral (Jaramillo) 1000 500 Other: Voiding Method Indwelling Catheter Indwelling Catheter Indwelling Catheter # Bowel Movements 2 2 - Constitutional General appearance: Present: cooperative, no acute distress - EENT ENT: Present: hearing grossly normal - Respiratory Details: No difficulty with respiration - Gastrointestinal Gastrointestinal Comment(s): Soft, appropriate tenderness, nondistended, no rebound, no guarding, SHIRA drain in place with serosanguineous output - Musculoskeletal Musculoskeletal: Present: generalized weakness - Psychiatric Psychiatric: Present: A&O x's 3 - Labs CBC & Chem 7: 10/28/17 06:43 10/28/17 13:25 Labs: Abnormal Lab Results - Last 24 Hours (Table) 10/28/17 10/28/17 Range/Units 06:43 06:43 WBC 14.7 H (3.8-10.6) k/uL Hct 37.1 L (39.0-53.0) % Neutrophils # 13.2 H (1.3-7.7) k/uL Lymphocytes # 0.5 L (1.0-4.8) k/uL Potassium 2.8 L* (3.5-5.1) mmol/L Glucose 123 H (74-99) mg/dL Calcium 7.6 L (8.4-10.2) mg/dL Microbiology - Last 24 Hours (Table) 10/24/17 13:15 Blood Culture Gram Stain - Preliminary Blood Blood Culture - Preliminary 10/24/17 13:15 Blood Culture - Preliminary Blood No Growth after 72 hours Assessment and Plan (1) Acute appendicitis Narrative/Plan: Laparoscopic appendectomy converted to open appendectomy, postoperative day #3 - Unasyn per ID - Advance to full liquid diet - Persistent tachycardia improved after evaluation by cardiology, further resuscitation was provided along with beta ana - Continue IV fluid resuscitation - Leukocytosis to 14 today, patient had multiple episodes of diarrhea over the last day, will obtain C. difficile toxin - If leukocytosis continues to increase tomorrow, we'll plan for CT to evaluate for possible abscess - Patient is not using incentive spirometry - discussed the importance of this with the patient - Continue DVT prophylaxis with subcutaneous heparin - Increase activity - Pain control - Continue Jaramillo to monitor urine output status post surgical procedure, appreciate placement by Dr. Chanel, urology - Prognosis guarded Current Visit: Yes Status: Acute Code(s): K35.80 - UNSPECIFIED ACUTE APPENDICITIS SNOMED Code(s): 43109930
[2017-10-28] MEDS ORDERED: POTASSIUM CHLORIDE ER 20 MEQ TAB.ER PO SCH (16:00)
--- NOTE | 2017-10-28 16:33 | PN ---
PROGRESS NOTE DATE OF SERVICE: 10/28/2017. REASON FOR FOLLOWUP: Secondary peritonitis from ruptured appendicitis. INTERVAL HISTORY: The patient overall fever pattern has improved. 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 The patient denies having any chest pain, shortness of breath or cough. Abdominal pain currently improved. and did have a bowel movement. EXAMINATION: Blood pressure 142/82 with a pulse of 89, temperature 97.9. He is 95% on room air. General description is a middle aged male up in the bed in no distress. Respiratory system: Unlabored breathing, clear to auscultation. Heart S1, S2 regular rate and rhythm. Abdomen soft. No tenderness. LABS: Hemoglobin 13.2, white count 14.7, abdominal culture with E coli and Klebsiella pneumoniae. DIAGNOSTIC IMPRESSION AND PLAN: Patient with secondary peritonitis from ruptured appendicitis and white count is slightly elevated. We will add p.o. Flagyl and continue with Unasyn. Repeating CBC tomorrow. Continue supportive care. MMODL / IJN: [id number] /
[2017-10-28] MEDS: SODIUM CHLORIDE 0.9% 1,000 ML IV SCH (18:00)
[2017-10-28] MEDS: 0.9% NACL WITH KCL 20 MEQ/L 1,000 ML IV SCH (21:28)
[2017-10-29] MEDS: POTASSIUM CHLORIDE 10 MEQ in SODIUM CHLORIDE 0.9% 100 ML IV SCH ×2 (01:13→02:38)
[2017-10-29] MEDS: AMPICILLIN-SULBACTAM 3 GM in SODIUM CHLORIDE 0.9% 100 ML IVPB SCH ×4 (04:54→23:23)
[2017-10-29] MEDS: 0.9% NACL WITH KCL 20 MEQ/L 1,000 ML IV SCH ×2 (04:58→15:26)
[2017-10-29 05:28] LABS: Basophils % (A) 0 %; Eosinophils # (A) 0.1 k/uL (0-0.7); Eosinophils % (A) 1 %; HCT 33.4 % (39.0-53.0); HGB 11.1 gm/dL (13.0-17.5); Lymphocytes # (A) 0.8 k/uL (1.0-4.8); Lymphocytes % (A) 6 %; MCH 28.6 pg (25.0-35.0); MCHC 33.4 g/dL (31.0-37.0); MCV 85.6 fL (80.0-100.0); Mean Platelet Volume 8.5; Monocytes # (A) 0.6 k/uL (0-1.0); Monocytes % (A) 4 %; Neutrophils # (A) 11.5 k/uL (1.3-7.7); Neutrophils % (A) 86 %; Platelet Count 184 k/uL (150-450); RDW 12.8 % (11.5-15.5); WBC 13.3 k/uL (3.8-10.6)
[2017-10-29 05:48] LABS: Anion Gap 7 mmol/L; Blood Urea Nitrogen 18 mg/dL (9-20); Calcium 7.8 mg/dL (8.4-10.2); Carbon Dioxide 23 mmol/L (22-30); Chloride 109 mmol/L (98-107); Glucose 93 mg/dL (74-99); Potassium 3.6 mmol/L (3.5-5.1); Sodium 139 mmol/L (137-145)
[2017-10-29] MEDS ORDERED: Potassium Replacement Protocol 1 EACH MISC MISCELLANE PRN (06:12)
[2017-10-29] MEDS ORDERED: POTASSIUM CHLORIDE ER 20 MEQ TAB.ER PO SCH (07:00)
[2017-10-29] MEDS: FUROSEMIDE 40 MG TAB PO SCH (08:43)
[2017-10-29] MEDS: HEPARIN SODIUM,PORCINE 5,000 UNIT/ML 1 ML VIAL SQ SCH ×3 (08:43→23:23)
[2017-10-29] MEDS: LISINOPRIL 10 MG TAB PO SCH (08:44)
[2017-10-29] MEDS: METOPROLOL TARTRATE 25 MG TAB PO SCH ×3 (08:44→21:02)
[2017-10-29] MEDS: PANTOPRAZOLE 40 MG/10 ML VIAL IV SCH (08:44)
[2017-10-29] MEDS: POTASSIUM CHLORIDE ER 10 MEQ TAB.ER.PRT PO SCH (08:47)
[2017-10-29] MEDS: metroNIDAZOLE 500 MG TAB PO SCH ×3 (09:52→21:02)
--- NOTE | 2017-10-29 11:11 | P.PN ---
Subjective Progress Note Date: 10/29/17 10/26/2017 57-year-old male who presented to the emergency room on 10/24/2017 with a chief complaint of abdominal pain. The patient was found to have appendicitis and underwent laparoscopic appendectomy converted to open appendectomy with Dr. Mendez on 10/24/2017. His appendix was found to be perforated and was found to have intra-abdominal peritonitis. Dr. Ma was consulted for medical management. The patient is seen in evaluated sitting up in the chair. Dr. Whiteside is on consult for infectious disease. He is currently receiving Zosyn every 8 hours IV. Preliminary cultures from the patient's appendix are positive for gram-negative bacilli. The patient had an indwelling urinary catheter placed for surgery which was found to be not properly draining. The patient was unable to void since that time. Urology was consulted. A new indwelling coud catheter was placed per urology. Per nursing, the patient had multiple blood clots present. The patient has been tachycardic with a rate in the 110-120s. Cardiology was consulted today and an echocardiogram has been ordered. The patient was febrile overnight with a temperature of 100.6F. This morning he is afebrile with a temperature of 98.8. He is on 4 L nasal cannula with oxygen saturations greater than 92%. The patient had an NG tube to low intermittent suction which has since been discontinued this morning. SHIRA drain is in place with serosanguineous drainage. The patient denies chest pain or pressure. Denies shortness of breath. Denies nausea or vomiting. Denies flatus. No bowel movement. Denies palpitations. States his pain is tolerable at this time. 10/27/2017 Patient seen and examined at the bedside on rounds with Dr. Ma. Patient is awake and alert sitting up in the bed. Patient is tolerating a clear liquid diet. Patient denies nausea or vomiting. Patient states his pain is tolerable at this time. Indwelling urinary catheter remains intact with claudia urine noted. Patient was febrile throughout the night with a temperature of 101.7. He was started on metoprolol per cardiology for tachycardia. Patient denies any concerns or complaints at this time. 10/28/2017 Patient seen and examined at the bedside on rounds with Dr. Ma. Patient states his pain is tolerable at this time. Patient states he has been having multiple bowel movements. C. diff was negative. SHIRA drain remains intact with serous drainage. Indwelling urinary catheter is present with claudia colored urine. Patient's potassium is low this morning at 2.8. Potassium protocol initiated. Patient's tachycardia has improved with the initiation of metoprolol per cardiology. Patient has been afebrile for the last 24 hours. WBC is up to 14.7 from 12.5. Infectious disease is on consult. Yesterday, Dr. Whiteside recommended continuing Unasyn for at least another 24-48 hours. Culture from appendix reveals Escherichia coli and Klebsiella pneumoniae, both susceptible to Unasyn. 10/29/2017 Patient seen and examined at the bedside on rounds with Dr. Ma. Patient is awake and alert. Sitting up in the chair. Patient states his loose stools are resolving. Denies abdominal pain. Denies nausea or vomiting. Tolerating full liquid diet. SHIRA with minimal serous drainage. Campos remains intact. WBC is down to 13.3 today. Objective - Vital Signs Vital signs: Vital Signs Temp 97.3 F L 10/29/17 07:00 Pulse 103 H 10/29/17 07:00 Resp 18 10/29/17 00:56 BP 142/84 10/29/17 07:00 Pulse Ox 95 10/29/17 07:00 Intake & Output 10/28/17 10/29/17 10/29/17 18:59 06:59 18:59 Intake Total 1250 Output Total 10 695 10 Balance -10 555 -10 Intake: Intake, IV Titration 950 Amount 0.9% NaCl with KCl 20 Meq 750 /l 1,000 ml @ 100 mls/hr IV .Q10H JUVENCIO Rx#: [id number] Potassium Chloride 10 meq 200 In Sodium Chloride 0.9% 100 ml @ 100 mls/hr IV Q1H JUVENCIO Rx#:[id number] Oral 300 Output: Drainage 10 20 10 Abdomen 10 20 10 Urine 675 Uretheral (Campos) 675 Other: Voiding Method Indwelling Catheter Indwelling Catheter Indwelling Catheter # Bowel Movements 2 3 - Exam GENERAL: This is a 57-year-old male in no apparent distress at the time of examination. Pleasant and cooperative. HEENT: Head is atraumatic, normocephalic. Pupils are equal, round, and reactive to light. Sclerae anicteric. Conjunctivae are clear. Mucus membranes of the mouth are moist. Neck is supple. RESPIRATORY: Clear to ausculation. No wheezes, rales, or rhonchi. No use of accessory muscles. Patient maintaining oxygen saturation greater than 92%. No chest wall tenderness is noted on palpation or with deep breathing. CARDIOVASCULAR: Regular rate and rhythm. S1 and S2 noted. No JVD noted. No S3 or S4 noted. GASTROINTESTINAL: Obese. No distention noted. Abdomen soft and round. Bowel sounds auscultated x 4 quadrants. SHIRA drain present with serous drainage. No pain or tenderness noted upon palpation. INTEGUMENTARY: No cyanosis. No jaundice. No rashes noted. No cellulitis noted. EXTREMITIES: 2+ peripheral pulses. No evidence of peripheral edema. No calf tenderness noted. NEUROLOGIC: Cranial nerves II-XII intact. PSYCHIATRIC: Awake, alert, and oriented X 3. Appropriate affect. Intact judgement and insight. - Labs CBC & Chem 7: 10/29/17 04:40 10/29/17 09:45 Labs: Abnormal Lab Results - Last 24 Hours (Table) 10/28/17 10/28/17 10/29/17 Range/Units 20:06 23:39 04:40 WBC 13.3 H (3.8-10.6) k/uL RBC 3.90 L (4.30-5.90) m/uL Hgb 11.1 L (13.0-17.5) gm/dL Hct 33.4 L (39.0-53.0) % Neutrophils # 11.5 H (1.3-7.7) k/uL Lymphocytes # 0.8 L (1.0-4.8) k/uL Potassium 3.4 L 3.3 L (3.5-5.1) mmol/L Chloride (98-107) mmol/L Calcium (8.4-10.2) mg/dL 10/29/17 Range/Units 04:40 WBC (3.8-10.6) k/uL RBC (4.30-5.90) m/uL Hgb (13.0-17.5) gm/dL Hct (39.0-53.0) % Neutrophils # (1.3-7.7) k/uL Lymphocytes # (1.0-4.8) k/uL Potassium (3.5-5.1) mmol/L Chloride 109 H (98-107) mmol/L Calcium 7.8 L (8.4-10.2) mg/dL Microbiology - Last 24 Hours (Table) 10/24/17 18:30 Anaerobic Culture - Final Appendix Anaerobic Gm Negative Bacilli 10/24/17 13:15 Blood Culture - Preliminary Blood No Growth after 96 hours 10/24/17 13:15 Blood Culture Gram Stain - Preliminary Blood Blood Culture - Preliminary Assessment and Plan Plan: ASSESSMENT: Laparoscopic appendectomy converted to open appendectomy secondary to perforated appendix with intra-abdominal stool, POD #5 Sepsis with elevated lactic acid, leukocytosis, and tachycardia, secondary to above, improving Essential hypertension Tachycardia, improved with addition of beta-ana, cardiology consulted Urinary retention with blood clots noted, s/p insertion of indwelling urinary catheter per urology Nicotine dependence, patient is a current everyday cigarette smoker Obesity: BMI 38.0 PLAN: Continue postoperative care per Dr. Mendez Advance diet per surgery Discontinue campos catheter when okay with surgery Cardiology on consult for tachycardia Continue metoprolol per cardiology Activity as tolerated Incentive spirometer 10 times an hour while awake Pain control Infectious disease on consult. Continue Unasyn Home meds as appropriate Monitor labs Smoking cessation recommended GI prophylaxis: Protonix 40 mg IV Daily DVT prophylaxis: Heparin 5000 units subcu every 8 hours Monitor vital signs and address as appropriate Further recommendations pending patient's course Nurse practitioner note has been reviewed by physician. Signing provider agrees with the documented findings, assessment, and plan of care.
[2017-10-29] MEDS: POTASSIUM CHLORIDE ER 20 MEQ TAB.ER PO SCH ×2 (11:46→13:00)
--- NOTE | 2017-10-29 12:32 | P.PN ---
Subjective Progress Note Date: 10/29/17 Patient seen and examined at bedside. States he is feeling very well. His abdominal pain is improving. Denies any nausea and vomiting. Tolerating his full liquid diet. Having bowel function. He is ambulating. Objective - Vital Signs Vital signs: Vital Signs Temp 97.3 F L 10/29/17 07:00 Pulse 103 H 10/29/17 07:00 Resp 18 10/29/17 00:56 BP 142/84 10/29/17 07:00 Pulse Ox 95 10/29/17 07:00 Intake & Output 10/28/17 10/29/17 10/29/17 18:59 06:59 18:59 Intake Total 1250 Output Total 10 695 610 Balance -10 555 -610 Intake: Intake, IV Titration 950 Amount 0.9% NaCl with KCl 20 Meq 750 /l 1,000 ml @ 100 mls/hr IV .Q10H JUVENCIO Rx#: [id number] Potassium Chloride 10 meq 200 In Sodium Chloride 0.9% 100 ml @ 100 mls/hr IV Q1H JUVENCIO Rx#:[id number] Oral 300 Output: Drainage 10 20 10 Abdomen 10 20 10 Urine 675 600 Uretheral (Jaramillo) 675 600 Other: Voiding Method Indwelling Catheter Indwelling Catheter Indwelling Catheter # Bowel Movements 2 3 - Constitutional General appearance: Present: cooperative, no acute distress - Respiratory Details: No difficulty with respiration - Gastrointestinal Gastrointestinal Comment(s): Soft, appropriate tenderness, nondistended, no rebound, no guarding, SHIRA drain in place with serosanguineous output, incision site clean, dry and intact - Musculoskeletal Musculoskeletal: Present: generalized weakness - Psychiatric Psychiatric: Present: A&O x's 3 - Labs CBC & Chem 7: 10/29/17 04:40 10/29/17 09:45 Labs: Abnormal Lab Results - Last 24 Hours (Table) 10/28/17 10/28/17 10/29/17 Range/Units 20:06 23:39 04:40 WBC 13.3 H (3.8-10.6) k/uL RBC 3.90 L (4.30-5.90) m/uL Hgb 11.1 L (13.0-17.5) gm/dL Hct 33.4 L (39.0-53.0) % Neutrophils # 11.5 H (1.3-7.7) k/uL Lymphocytes # 0.8 L (1.0-4.8) k/uL Potassium 3.4 L 3.3 L (3.5-5.1) mmol/L Chloride (98-107) mmol/L Calcium (8.4-10.2) mg/dL 10/29/17 Range/Units 04:40 WBC (3.8-10.6) k/uL RBC (4.30-5.90) m/uL Hgb (13.0-17.5) gm/dL Hct (39.0-53.0) % Neutrophils # (1.3-7.7) k/uL Lymphocytes # (1.0-4.8) k/uL Potassium (3.5-5.1) mmol/L Chloride 109 H (98-107) mmol/L Calcium 7.8 L (8.4-10.2) mg/dL Microbiology - Last 24 Hours (Table) 10/24/17 18:30 Anaerobic Culture - Final Appendix Anaerobic Gm Negative Bacilli 10/24/17 13:15 Blood Culture - Preliminary Blood No Growth after 96 hours 10/24/17 13:15 Blood Culture Gram Stain - Preliminary Blood Blood Culture - Preliminary Assessment and Plan (1) Acute appendicitis Narrative/Plan: Laparoscopic appendectomy converted to open appendectomy, postoperative day #5 - Unasyn and Flagyl per ID - Continue full liquid diet - Persistent tachycardia improved after evaluation by cardiology, further resuscitation was provided along with beta ana - Continue IV fluid resuscitation - C. difficile was negative - Leukocytosis down to 13 today, we'll continue to follow - Patient is using his incentive spirometry and ambulating - Continue DVT prophylaxis with subcutaneous heparin - Increase activity - Pain control - Discontinue Jaramillo catheter - Prognosis guarded Current Visit: Yes Status: Acute Code(s): K35.80 - UNSPECIFIED ACUTE APPENDICITIS SNOMED Code(s): 58685361
--- NOTE | 2017-10-29 13:10 | PN ---
PROGRESS NOTE DATE OF SERVICE: 10/29/2017. REASON FOR FOLLOWUP: Secondary peritonitis from perforated appendicitis. INTERVAL HISTORY: The patient is afebrile. He is breathing comfortably. The patient did mention the abdominal pain has slightly improved. Diarrhea has slowed. No nausea, no vomiting. EXAMINATION: Blood pressure 142/84 with a pulse of 103. Temperature 97.3. He is 95% on room air. General description is a middle aged male up in the chair in no distress. Respiratory system: Unlabored breathing. Clear to auscultation anteriorly. Heart S1, S2. Regular rate and rhythm. ABDOMEN: Soft, no tenderness. LABS: White count is slightly elevated at 13.8, down from yesterday of 14.7. The peritoneal culture with E coli Klebsiella anaerobic gram-negative bacilli. DIAGNOSTIC IMPRESSION AND PLAN: Patient with secondary peritonitis from perforated appendicitis status post appendectomy, culture with Klebsiella E coli anaerobic gram negative. Currently on Unasyn and Flagyl. Will see the response to addition of the Flagyl and repeat his white count tomorrow. Continue supportive care. MMODL / IJN: [id number] /
[2017-10-30] MEDS: HYDROmorphone 2 MG TAB PO PRN ×2 (04:21→20:07)
[2017-10-30] MEDS: AMPICILLIN-SULBACTAM 3 GM in SODIUM CHLORIDE 0.9% 100 ML IVPB SCH ×3 (05:22→17:16)
[2017-10-30] MEDS: 0.9% NACL WITH KCL 20 MEQ/L 1,000 ML IV SCH ×3 (05:22→20:06)
[2017-10-30 07:04] LABS: Basophils # (A) 0.1 k/uL (0-0.2); Basophils % (A) 0 %; Eosinophils # (A) 0.1 k/uL (0-0.7); Eosinophils % (A) 1 %; HCT 37.5 % (39.0-53.0); HGB 11.6 gm/dL (13.0-17.5); Lymphocytes # (A) 1.1 k/uL (1.0-4.8); Lymphocytes % (A) 7 %; MCH 27.1 pg (25.0-35.0); MCHC 30.9 g/dL (31.0-37.0); MCV 87.7 fL (80.0-100.0); Mean Platelet Volume 9.2; Monocytes # (A) 0.8 k/uL (0-1.0); Monocytes % (A) 5 %; Neutrophils # (A) 13.3 k/uL (1.3-7.7); Neutrophils % (A) 83 %; Platelet Count 202 k/uL (150-450); RBC 4.27 m/uL (4.30-5.90)
[2017-10-30 07:11] LABS: Anion Gap 12 mmol/L; Blood Urea Nitrogen 14 mg/dL (9-20); Carbon Dioxide 22 mmol/L (22-30); Chloride 107 mmol/L (98-107); Glucose 83 mg/dL (74-99); Sodium 141 mmol/L (137-145)
[2017-10-30] MEDS: METOPROLOL TARTRATE 25 MG TAB PO SCH ×3 (08:00→20:06)
[2017-10-30] MEDS: HEPARIN SODIUM,PORCINE 5,000 UNIT/ML 1 ML VIAL SQ SCH ×2 (08:00→15:34)
[2017-10-30] MEDS: FUROSEMIDE 40 MG TAB PO SCH (08:01)
[2017-10-30] MEDS: PANTOPRAZOLE 40 MG TABLET PO SCH (08:01)
[2017-10-30] MEDS: LISINOPRIL 10 MG TAB PO SCH (08:01)
[2017-10-30] MEDS: metroNIDAZOLE 500 MG TAB PO SCH ×3 (08:01→20:05)
[2017-10-30] MEDS: POTASSIUM CHLORIDE ER 10 MEQ TAB.ER.PRT PO SCH (08:01)
[2017-10-30] MEDS ORDERED: RX INFO: IV CONTRAST WAS GIVEN 1 EACH MISC MISCELLANE PRN (08:41)
[2017-10-30] MEDS: IOPAMIDOL-300 CONTRAST 30 ML VIAL (ORAL USE) PO PRN ×2 (09:13→10:05)
--- NOTE | 2017-10-30 10:20 | P.PN ---
Subjective Progress Note Date: 10/30/17 10/26/2017 57-year-old male who presented to the emergency room on 10/24/2017 with a chief complaint of abdominal pain. The patient was found to have appendicitis and underwent laparoscopic appendectomy converted to open appendectomy with Dr. Mendez on 10/24/2017. His appendix was found to be perforated and was found to have intra-abdominal peritonitis. Dr. Ma was consulted for medical management. The patient is seen in evaluated sitting up in the chair. Dr. Whiteside is on consult for infectious disease. He is currently receiving Zosyn every 8 hours IV. Preliminary cultures from the patient's appendix are positive for gram-negative bacilli. The patient had an indwelling urinary catheter placed for surgery which was found to be not properly draining. The patient was unable to void since that time. Urology was consulted. A new indwelling coud catheter was placed per urology. Per nursing, the patient had multiple blood clots present. The patient has been tachycardic with a rate in the 110-120s. Cardiology was consulted today and an echocardiogram has been ordered. The patient was febrile overnight with a temperature of 100.6F. This morning he is afebrile with a temperature of 98.8. He is on 4 L nasal cannula with oxygen saturations greater than 92%. The patient had an NG tube to low intermittent suction which has since been discontinued this morning. SHIRA drain is in place with serosanguineous drainage. The patient denies chest pain or pressure. Denies shortness of breath. Denies nausea or vomiting. Denies flatus. No bowel movement. Denies palpitations. States his pain is tolerable at this time. 10/27/2017 Patient seen and examined at the bedside on rounds with Dr. Ma. Patient is awake and alert sitting up in the bed. Patient is tolerating a clear liquid diet. Patient denies nausea or vomiting. Patient states his pain is tolerable at this time. Indwelling urinary catheter remains intact with claudia urine noted. Patient was febrile throughout the night with a temperature of 101.7. He was started on metoprolol per cardiology for tachycardia. Patient denies any concerns or complaints at this time. 10/28/2017 Patient seen and examined at the bedside on rounds with Dr. Ma. Patient states his pain is tolerable at this time. Patient states he has been having multiple bowel movements. C. diff was negative. SHIRA drain remains intact with serous drainage. Indwelling urinary catheter is present with claudia colored urine. Patient's potassium is low this morning at 2.8. Potassium protocol initiated. Patient's tachycardia has improved with the initiation of metoprolol per cardiology. Patient has been afebrile for the last 24 hours. WBC is up to 14.7 from 12.5. Infectious disease is on consult. Yesterday, Dr. Whiteside recommended continuing Unasyn for at least another 24-48 hours. Culture from appendix reveals Escherichia coli and Klebsiella pneumoniae, both susceptible to Unasyn. 10/29/2017 Patient seen and examined at the bedside on rounds with Dr. Ma. Patient is awake and alert. Sitting up in the chair. Patient states his loose stools are resolving. Denies abdominal pain. Denies nausea or vomiting. Tolerating full liquid diet. SHIRA with minimal serous drainage. Jaramillo remains intact. WBC is down to 13.3 today. 10/30/2017 Patient seen and examined. He is sitting up in the chair. Urinary catheter was discontinued yesterday and patient states he has been voiding without difficulty. SHIRA drain remains intact with minimal serous fluid. Case discussed with Dr. Mendez. CT of the abdomen with oral contrast to be completed. WBC increased this AM to 16.0 Potassium is 4.0. Patient states his stools are still loose but improving from the diarrhea he was experiencing. Objective - Vital Signs Vital signs: Vital Signs Temp 98 F 10/30/17 07:06 Pulse 82 10/30/17 07:06 Resp 16 10/30/17 07:06 BP 135/75 10/30/17 07:06 Pulse Ox 100 10/30/17 07:06 Intake & Output 10/29/17 10/30/17 10/30/17 18:59 06:59 18:59 Intake Total 800 1500 236 Output Total 920 430 200 Balance -120 1070 36 Intake: Intake, IV Titration 800 1000 Amount 0.9% NaCl with KCl 20 Meq 800 /l 1,000 ml @ 100 mls/hr IV .Q10H [facility] Rx#: [id number] Ampicillin-Sulbactam 3 gm 200 In Sodium Chloride 0.9% 100 ml @ 100 mls/hr IVPB Q6HR [facility]ENC[facility] Rx#:[id number] Sodium Chloride 0.9% 1, 800 000 ml @ 100 mls/hr IV . Q10H6M JUVENCIO with Potassium Chloride 20 meq Rx#: [id number] Oral 500 236 Output: Drainage 20 30 Abdomen 20 30 Urine 900 400 200 Uretheral (Jaramillo) 600 Other: Voiding Method Indwelling Catheter Bedside Commode Urinal # Voids 2 1 1 # Bowel Movements 3 1 - Exam GENERAL: This is a 57-year-old male in no apparent distress at the time of examination. Pleasant and cooperative. HEENT: Head is atraumatic, normocephalic. Pupils are equal, round, and reactive to light. Sclerae anicteric. Conjunctivae are clear. Mucus membranes of the mouth are moist. Neck is supple. RESPIRATORY: Clear to ausculation. No wheezes, rales, or rhonchi. No use of accessory muscles. Patient maintaining oxygen saturation greater than 92%. No chest wall tenderness is noted on palpation or with deep breathing. CARDIOVASCULAR: Regular rate and rhythm. S1 and S2 noted. No JVD noted. No S3 or S4 noted. GASTROINTESTINAL: Obese. No distention noted. Abdomen soft and round. Bowel sounds auscultated x 4 quadrants. SHIRA drain present with serous drainage. No pain or tenderness noted upon palpation. INTEGUMENTARY: No cyanosis. No jaundice. No rashes noted. No cellulitis noted. EXTREMITIES: 2+ peripheral pulses. No evidence of peripheral edema. No calf tenderness noted. NEUROLOGIC: Cranial nerves II-XII intact. PSYCHIATRIC: Awake, alert, and oriented X 3. Appropriate affect. Intact judgement and insight. - Labs CBC & Chem 7: 10/30/17 06:08 10/30/17 06:08 Labs: Abnormal Lab Results - Last 24 Hours (Table) 10/29/17 10/30/17 10/30/17 Range/Units 13:08 06:08 06:08 WBC 16.0 H (3.8-10.6) k/uL RBC 4.27 L (4.30-5.90) m/uL Hgb 11.6 L (13.0-17.5) gm/dL Hct 37.5 L (39.0-53.0) % MCHC 30.9 L (31.0-37.0) g/dL Neutrophils # 13.3 H (1.3-7.7) k/uL Potassium 3.3 L (3.5-5.1) mmol/L Calcium 8.0 L (8.4-10.2) mg/dL Microbiology - Last 24 Hours (Table) 10/24/17 13:15 Blood Culture - Preliminary Blood No Growth after 120 hours 10/24/17 13:15 Blood Culture Gram Stain - Preliminary Blood Blood Culture - Preliminary Assessment and Plan Plan: ASSESSMENT: Laparoscopic appendectomy converted to open appendectomy secondary to perforated appendix with intra-abdominal stool, POD #6 Sepsis with elevated lactic acid, leukocytosis, and tachycardia, secondary to above, improving Essential hypertension Tachycardia, improved with addition of beta-ana, cardiology consulted Urinary retention with blood clots noted, s/p insertion of indwelling urinary catheter per urology Nicotine dependence, patient is a current everyday cigarette smoker Obesity: BMI 38.0 PLAN: Continue postoperative care per Dr. Mendez Advance diet per surgery CT of abdomen to be performed today. Await results. Cardiology on consult for tachycardia Continue metoprolol per cardiology Activity as tolerated Incentive spirometer 10 times an hour while awake Pain control Infectious disease on consult. Continue Unasyn Home meds as appropriate Monitor labs Smoking cessation recommended GI prophylaxis: Protonix 40 mg IV Daily DVT prophylaxis: Heparin 5000 units subcu every 8 hours Monitor vital signs and address as appropriate Further recommendations pending patient's course Nurse practitioner note has been reviewed by physician. Signing provider agrees with the documented findings, assessment, and plan of care.
--- NOTE | 2017-10-30 11:47 | CT ---
EXAMINATION TYPE: CT abdomen pelvis w con DATE OF EXAM: 10/30/2017 COMPARISON: NONE HISTORY: Possible abscess post open appendectomy, elevated WBC CT DLP: 3457.2 mGycm CONTRAST: CT scan of the abdomen and pelvis is performed with Oral Contrast and with IV Contrast, patient injec pau with 100 mL of Isovue 300. FINDINGS: LUNG BASES-: Right basilar atelectasis and/or infiltrate. LIVER/GB: No calcified gallstones. Small cyst hepatic dome. Biliary tree is of normal caliber. PANCREAS: No inflammation. No distinct mass. SPLEEN: No splenic enlargement. No lesion seen. ADRENALS: No nodule. No thickening. KIDNEYS/BLADDER: No hydronephrosis. No nephrolithiasis. No distinct renal mass. Urinary bladder g rossly unremarkable. BOWEL: There is a bilobed collection right lower quadrant measuring 6 x 4.2 x 5.0 cm. While this coul d reflect postoperative seroma developing abscess is difficult to exclude. Rounding inflammatory pichardo ge noted. Small amount of free air is seen within the abdomen. Subcutaneous air is noted within the l eft lateral abdominal wall and to a lesser extent on the right. Small and large bowel are normal ellis jeremy. There is mild wall thickening involving several right lower quadrant small bowel loops. Right lo wer quadrant surgical drain noted. GENITAL ORGANS: No gross abnormality. LYMPH NODES: No greater than 1cm abdominal or pelvic lymph nodes are appreciated. AORTA: No significant abnormality. OSSEOUS STRUCTURES: No significant abnormality is seen. OTHER: Small amount of free fluid noted IMPRESSION: 1. There is a bilobed collection right lower quadrant measuring 6 x 4.2 x 5.0 cm. While this could re flect postoperative seroma developing abscess is difficult to exclude. 2. Right basilar atelectasis and/or infiltrate. Small right-sided pleural effusion.
--- NOTE | 2017-10-30 12:21 | P.PN ---
Subjective Progress Note Date: 10/30/17 Patient seen and examined at bedside. He is doing well. He states his pain is well-controlled. He denies any fevers, chills, chest pain or shortness of breath. He is tolerating diet and having normal bowel function. He is urinating without any issues. SHIRA drain is still in place with only serosanguineous output, minimal. Objective - Vital Signs Vital signs: Vital Signs Temp 98 F 10/30/17 07:06 Pulse 82 10/30/17 07:06 Resp 16 10/30/17 07:06 BP 135/75 10/30/17 07:06 Pulse Ox 100 10/30/17 07:06 Intake & Output 10/29/17 10/30/17 10/30/17 18:59 06:59 18:59 Intake Total 800 1500 236 Output Total 920 430 200 Balance -120 1070 36 Weight 113.398 kg Intake: Intake, IV Titration 800 1000 Amount 0.9% NaCl with KCl 20 Meq 800 /l 1,000 ml @ 100 mls/hr IV .Q10H JUVENCIO Rx#: [id number] Ampicillin-Sulbactam 3 gm 200 In Sodium Chloride 0.9% 100 ml @ 100 mls/hr IVPB Q6HR JUVENCIO Rx#:[id number] Sodium Chloride 0.9% 1, 800 000 ml @ 100 mls/hr IV . Q10H6M JUVENCIO with Potassium Chloride 20 meq Rx#: [id number] Oral 500 236 Output: Drainage 20 30 Abdomen 20 30 Urine 900 400 200 Uretheral (Jaramillo) 600 Other: Voiding Method Indwelling Catheter Bedside Commode Urinal # Voids 2 1 1 # Bowel Movements 3 1 - Constitutional General appearance: Present: cooperative, no acute distress - EENT ENT: Present: hearing grossly normal - Respiratory Details: No difficulty with respiration - Gastrointestinal Gastrointestinal Comment(s): Soft, appropriate tenderness, nondistended, no rebound, no guarding, incision site clean, dry and intact stefan in place - Musculoskeletal Musculoskeletal: Present: generalized weakness - Psychiatric Psychiatric: Present: A&O x's 3 - Labs CBC & Chem 7: 10/30/17 06:08 10/30/17 06:08 Labs: Abnormal Lab Results - Last 24 Hours (Table) 10/29/17 10/30/17 10/30/17 Range/Units 13:08 06:08 06:08 WBC 16.0 H (3.8-10.6) k/uL RBC 4.27 L (4.30-5.90) m/uL Hgb 11.6 L (13.0-17.5) gm/dL Hct 37.5 L (39.0-53.0) % MCHC 30.9 L (31.0-37.0) g/dL Neutrophils # 13.3 H (1.3-7.7) k/uL Potassium 3.3 L (3.5-5.1) mmol/L Calcium 8.0 L (8.4-10.2) mg/dL Microbiology - Last 24 Hours (Table) 10/24/17 13:15 Blood Culture - Preliminary Blood No Growth after 120 hours 10/24/17 13:15 Blood Culture Gram Stain - Preliminary Blood Blood Culture - Preliminary Assessment and Plan (1) Acute appendicitis Narrative/Plan: Laparoscopic appendectomy converted to open appendectomy, postoperative day #5 - Unasyn and Flagyl per ID - Advance to soft diet - Persistent tachycardia improved after evaluation by cardiology, further resuscitation was provided along with beta ana - Continue IV fluid resuscitation - C. difficile was negative - Leukocytosis increased today to 16. I discussed the case with infectious disease and a CT of the abdomen and pelvis with contrast was ordered to evaluate for any abscess secondary to intra-abdominal stool spillage with his appendiceal perforation. This CT abdomen and pelvis was done and did show a 6 x 5 cm developing collection in the right lower quadrant. I did discuss this case with interventional radiology as well. This area at best is a phlegmon at this point in time and an IR drain would not be effective. We will continue antibiotics at this time and if abscess develops we'll plan for drainage at that time. SHIRA drain is in the vicinity of this developing collection and will remain in place. - Patient is using his incentive spirometry and ambulating - Continue DVT prophylaxis with subcutaneous heparin - Increase activity - Pain control - Prognosis guarded Current Visit: Yes Status: Acute Code(s): K35.80 - UNSPECIFIED ACUTE APPENDICITIS SNOMED Code(s): 10212818
--- NOTE | 2017-10-30 21:59 | PN ---
PROGRESS NOTE DATE OF SERVICE: 10/30/2017 REASON FOR FOLLOWUP: Secondary peritonitis from perforated appendicitis. INTERVAL HISTORY: The patient is afebrile. He is breathing comfortably. Abdominal pain is currently controlled with pain medication; no worse. No nausea or vomiting. Did have some bowel movement. PHYSICAL EXAMINATION: Blood pressure is 125/89 with a pulse of 78, temperature 97.9. He is 99% on room air. General description is a middle-aged male up in the chair in no distress. RESPIRATORY SYSTEM: Unlabored breathing with decreased breath sounds in the bases. No wheeze. HEART: S1, S2. Regular rate and rhythm. ABDOMEN: Soft. No tenderness. No guarding or rigidity. LABS: Hemoglobin is 11.6, white count of 16,000. BUN of 14, creatinine 0.70. DIAGNOSTIC IMPRESSION AND PLAN: Patient with secondary peritonitis from ruptured appendicitis, status post appendectomy. Patient noticed to have slight worsening of white count, for which CT of abdomen and pelvis was done which was reviewed with the radiologist. It shows small fluid collection with a question of possible seroma versus developing abscess. He will be kept on the Unasyn and Flagyl and see if he responds to the same. If he continues to have worsening white count or any fever, we may need to drain that fluid, CT-guided. This was discussed with the surgeon. Continue with supportive care. MMODL / IJN: [id number] /
[2017-10-31] MEDS: AMPICILLIN-SULBACTAM 3 GM in SODIUM CHLORIDE 0.9% 100 ML IVPB SCH ×5 (00:03→23:59)
[2017-10-31] MEDS: HYDROmorphone 2 MG TAB PO PRN ×2 (00:04→15:04)
[2017-10-31] MEDS: HEPARIN SODIUM,PORCINE 5,000 UNIT/ML 1 ML VIAL SQ SCH ×4 (00:06→23:59)
[2017-10-31 07:35] LABS: Anion Gap 10 mmol/L; Blood Urea Nitrogen 10 mg/dL (9-20); Calcium 7.9 mg/dL (8.4-10.2); Carbon Dioxide 26 mmol/L (22-30); Chloride 104 mmol/L (98-107); Glucose 83 mg/dL (74-99); Potassium 3.8 mmol/L (3.5-5.1); Sodium 140 mmol/L (137-145)
[2017-10-31 07:40] LABS: Basophils # (A) 0.1 k/uL (0-0.2); Basophils % (A) 1 %; Eosinophils # (A) 0.2 k/uL (0-0.7); Eosinophils % (A) 1 %; HCT 37.8 % (39.0-53.0); HGB 12.8 gm/dL (13.0-17.5); Lymphocytes # (A) 1.3 k/uL (1.0-4.8); Lymphocytes % (A) 8 %; MCH 29.1 pg (25.0-35.0); MCHC 33.9 g/dL (31.0-37.0); MCV 85.8 fL (80.0-100.0); Mean Platelet Volume 8.4; Monocytes # (A) 0.7 k/uL (0-1.0); Monocytes % (A) 4 %; Neutrophils # (A) 13.7 k/uL (1.3-7.7); Neutrophils % (A) 83 %; Platelet Count 283 k/uL (150-450); RBC 4.41 m/uL (4.30-5.90); RDW 12.8 % (11.5-15.5); WBC 16.6 k/uL (3.8-10.6)
[2017-10-31] MEDS: PANTOPRAZOLE 40 MG TABLET PO SCH (08:49)
[2017-10-31] MEDS: 0.9% NACL WITH KCL 20 MEQ/L 1,000 ML IV SCH ×2 (08:49→17:03)
[2017-10-31] MEDS: LISINOPRIL 10 MG TAB PO SCH (08:49)
[2017-10-31] MEDS: POTASSIUM CHLORIDE ER 10 MEQ TAB.ER.PRT PO SCH (08:49)
[2017-10-31] MEDS: metroNIDAZOLE 500 MG TAB PO SCH ×3 (08:49→20:30)
[2017-10-31] MEDS: FUROSEMIDE 40 MG TAB PO SCH (08:49)
[2017-10-31] MEDS: METOPROLOL TARTRATE 25 MG TAB PO SCH ×3 (08:49→20:30)
--- NOTE | 2017-10-31 11:58 | P.PN ---
Subjective Progress Note Date: 10/31/17 10/26/2017 57-year-old male who presented to the emergency room on 10/24/2017 with a chief complaint of abdominal pain. The patient was found to have appendicitis and underwent laparoscopic appendectomy converted to open appendectomy with Dr. Mendez on 10/24/2017. His appendix was found to be perforated and was found to have intra-abdominal peritonitis. Dr. Ma was consulted for medical management. The patient is seen in evaluated sitting up in the chair. Dr. Whiteside is on consult for infectious disease. He is currently receiving Zosyn every 8 hours IV. Preliminary cultures from the patient's appendix are positive for gram-negative bacilli. The patient had an indwelling urinary catheter placed for surgery which was found to be not properly draining. The patient was unable to void since that time. Urology was consulted. A new indwelling coud catheter was placed per urology. Per nursing, the patient had multiple blood clots present. The patient has been tachycardic with a rate in the 110-120s. Cardiology was consulted today and an echocardiogram has been ordered. The patient was febrile overnight with a temperature of 100.6F. This morning he is afebrile with a temperature of 98.8. He is on 4 L nasal cannula with oxygen saturations greater than 92%. The patient had an NG tube to low intermittent suction which has since been discontinued this morning. SHIRA drain is in place with serosanguineous drainage. The patient denies chest pain or pressure. Denies shortness of breath. Denies nausea or vomiting. Denies flatus. No bowel movement. Denies palpitations. States his pain is tolerable at this time. 10/27/2017 Patient seen and examined at the bedside on rounds with Dr. Ma. Patient is awake and alert sitting up in the bed. Patient is tolerating a clear liquid diet. Patient denies nausea or vomiting. Patient states his pain is tolerable at this time. Indwelling urinary catheter remains intact with claudia urine noted. Patient was febrile throughout the night with a temperature of 101.7. He was started on metoprolol per cardiology for tachycardia. Patient denies any concerns or complaints at this time. 10/28/2017 Patient seen and examined at the bedside on rounds with Dr. Ma. Patient states his pain is tolerable at this time. Patient states he has been having multiple bowel movements. C. diff was negative. SHIRA drain remains intact with serous drainage. Indwelling urinary catheter is present with claudia colored urine. Patient's potassium is low this morning at 2.8. Potassium protocol initiated. Patient's tachycardia has improved with the initiation of metoprolol per cardiology. Patient has been afebrile for the last 24 hours. WBC is up to 14.7 from 12.5. Infectious disease is on consult. Yesterday, Dr. Whiteside recommended continuing Unasyn for at least another 24-48 hours. Culture from appendix reveals Escherichia coli and Klebsiella pneumoniae, both susceptible to Unasyn. 10/29/2017 Patient seen and examined at the bedside on rounds with Dr. Ma. Patient is awake and alert. Sitting up in the chair. Patient states his loose stools are resolving. Denies abdominal pain. Denies nausea or vomiting. Tolerating full liquid diet. SHIRA with minimal serous drainage. Jaramillo remains intact. WBC is down to 13.3 today. 10/30/2017 Patient seen and examined. He is sitting up in the chair. Urinary catheter was discontinued yesterday and patient states he has been voiding without difficulty. SHIRA drain remains intact with minimal serous fluid. Case discussed with Dr. Mendez. CT of the abdomen with oral contrast to be completed. WBC increased this AM to 16.0 Potassium is 4.0. Patient states his stools are still loose but improving from the diarrhea he was experiencing. Above notes were per Danay Guidry NP 10/31/2017: Patient is doing better. He was noted on CT one day ago to have a possible seroma versus developing abscess to his right lower quadrant. He is status post open appendectomy for ruptured appendectomy with stool in the abdomen. While he is feeling better and tolerating a diet, he does have some lower extremity edema today. He is urinating normally no his Jaramillo cath is been removed. He indicates he does have some mild abdominal pain at this time. His SHIRA drain appears to be intact. Objective - Vital Signs Vital signs: Vital Signs Temp 99 F 10/31/17 07:00 Pulse 81 10/31/17 07:00 Resp 14 10/31/17 07:00 BP 153/73 10/31/17 07:00 Pulse Ox 97 10/31/17 07:00 Intake & Output 10/30/17 10/31/17 10/31/17 18:59 06:59 18:59 Intake Total 236 Output Total 711 551 20 Balance -475 -551 -20 Weight 113.398 kg 113.398 kg Intake: Oral 236 Output: Drainage 10 50 20 Abdomen 10 50 20 Urine 700 500 Stool 1 1 Other: Voiding Method Bedside Commode Urinal # Voids 3 3 # Bowel Movements 3 1 - Exam GENERAL: This is a 57-year-old male in no apparent distress at the time of examination. Pleasant and cooperative. HEENT: Head is atraumatic, normocephalic. Pupils are equal, round, and reactive to light. Sclerae anicteric. Conjunctivae are clear. Mucus membranes of the mouth are moist. Neck is supple. RESPIRATORY: Clear to ausculation. No wheezes, rales, or rhonchi. No use of accessory muscles. Patient maintaining oxygen saturation greater than 92%. No chest wall tenderness is noted on palpation or with deep breathing. CARDIOVASCULAR: Regular rate and rhythm. S1 and S2 noted. No JVD noted. No S3 or S4 noted. GASTROINTESTINAL: Obese. No distention noted. Abdomen soft and round. Bowel sounds auscultated x 4 quadrants. SHIRA drain present with minimal serous drainage. No pain or tenderness noted upon palpation. INTEGUMENTARY: No cyanosis. No jaundice. No rashes noted. No cellulitis noted. EXTREMITIES: 2+ peripheral pulses. No evidence of peripheral edema. No calf tenderness noted. NEUROLOGIC: Cranial nerves II-XII intact. PSYCHIATRIC: Awake, alert, and oriented X 3. Appropriate affect. Intact judgement and insight. - Labs CBC & Chem 7: 10/31/17 06:25 10/31/17 06:25 Labs: Abnormal Lab Results - Last 24 Hours (Table) 10/31/17 10/31/17 Range/Units 06:25 06:25 WBC 16.6 H (3.8-10.6) k/uL Hgb 12.8 L (13.0-17.5) gm/dL Hct 37.8 L (39.0-53.0) % Neutrophils # 13.7 H (1.3-7.7) k/uL Calcium 7.9 L (8.4-10.2) mg/dL Microbiology - Last 24 Hours (Table) 10/24/17 13:15 Blood Culture Gram Stain - Final Blood Blood Culture - Final Anaerobic Gm Positive Bacill 10/24/17 13:15 Blood Culture - Final Blood No Growth after 144 hours Assessment and Plan Plan: ASSESSMENT: Laparoscopic appendectomy converted to open appendectomy secondary to perforated appendix with intra-abdominal stool, POD #6 Sepsis with elevated lactic acid, leukocytosis, and tachycardia, secondary to above, improving Essential hypertension Tachycardia, improved with addition of beta-ana, cardiology consulted Urinary retention with blood clots noted, s/p insertion of indwelling urinary catheter per urology Nicotine dependence, patient is a current everyday cigarette smoker Obesity: BMI 38.0 Lower extremity edema PLAN: Continue postoperative care per Dr. Mendez Advance diet per surgery CT of abdomen to be performed today. Await results. Cardiology on consult for tachycardia Continue metoprolol per cardiology Activity as tolerated Incentive spirometer 10 times an hour while awake Pain control Infectious disease on consult. Continue Unasyn Home meds as appropriate Monitor labs Smoking cessation recommended GI prophylaxis: Protonix 40 mg IV Daily DVT prophylaxis: Heparin 5000 units subcu every 8 hours Monitor vital signs and address as appropriate Further recommendations pending patient's course
--- NOTE | 2017-10-31 13:39 | P.PN ---
Subjective Progress Note Date: 10/31/17 Principal diagnosis: Perforated appendicitis The patient is status post open appendectomy for perforated appendicitis with fecal peritonitis. He's been having some leukocytosis so a computed tomography scan was done yesterday there is some fluid near the drain but no drainable abscess is seen. He's been afebrile. He's tolerating a diet. No nausea or vomiting. Urinating quite a bit. Objective - Vital Signs Vital signs: Vital Signs Temp 99 F 10/31/17 07:00 Pulse 81 10/31/17 07:00 Resp 14 10/31/17 07:00 BP 153/73 10/31/17 07:00 Pulse Ox 97 10/31/17 07:00 Intake & Output 10/30/17 10/31/17 10/31/17 18:59 06:59 18:59 Intake Total 236 700 Output Total 711 551 20 Balance -475 551 680 Weight 113.398 kg 113.398 kg Intake: Intake, IV Titration 700 Amount 0.9% NaCl with KCl 20 Meq 700 /l 1,000 ml @ 100 mls/hr IV .Q10H JUVENCIO Rx#: [id number] Oral 236 Output: Drainage 10 50 20 Abdomen 10 50 20 Urine 700 500 Stool 1 1 Other: Voiding Method Bedside Commode Urinal # Voids 3 3 # Bowel Movements 3 1 - Constitutional General appearance: Present: cooperative, no acute distress - Respiratory Respiratory: bilateral: CTA - Cardiovascular Rhythm: regular - Gastrointestinal Gastrointestinal Comment(s): SHIRA is serosanguineous General gastrointestinal: Present: decreased bowel sounds, soft, tenderness ( Incisional) - Labs CBC & Chem 7: 10/31/17 06:25 10/31/17 06:25 Labs: Abnormal Lab Results - Last 24 Hours (Table) 10/31/17 10/31/17 Range/Units 06:25 06:25 WBC 16.6 H (3.8-10.6) k/uL Hgb 12.8 L (13.0-17.5) gm/dL Hct 37.8 L (39.0-53.0) % Neutrophils # 13.7 H (1.3-7.7) k/uL Calcium 7.9 L (8.4-10.2) mg/dL Microbiology - Last 24 Hours (Table) 10/24/17 13:15 Blood Culture Gram Stain - Final Blood Blood Culture - Final Anaerobic Gm Positive Bacill 10/24/17 13:15 Blood Culture - Final Blood No Growth after 144 hours Assessment and Plan (1) Acute perforated appendicitis Current Visit: Yes Status: Acute Code(s): K35.2 - ACUTE APPENDICITIS WITH GENERALIZED PERITONITIS SNOMED Code(s): 70919529 (2) Leukocytosis Current Visit: Yes Status: Acute Code(s): D72.829 - ELEVATED WHITE BLOOD CELL COUNT, UNSPECIFIED SNOMED Code(s): 379414294 Plan: We'll continue the IV antibiotics. He's on broad-spectrum antibiotics. We'll decrease the rate of the IV fluid. Repeat a CBC tomorrow. Monitor his fever. If the leukocytosis worsens or he develops a fever may need to repeat computed tomography scan on Thursday. He is at a high risk for development of intra- abdominal abscess due to the perforated appendicitis.
[2017-11-01] MEDS: AMPICILLIN-SULBACTAM 3 GM in SODIUM CHLORIDE 0.9% 100 ML IVPB SCH ×4 (05:33→23:32)
[2017-11-01] MEDS: 0.9% NACL WITH KCL 20 MEQ/L 1,000 ML IV SCH ×3 (05:33→20:04)
[2017-11-01 08:09] LABS: Basophils # (A) 0.1 k/uL (0-0.2); Basophils % (A) 1 %; Eosinophils # (A) 0.1 k/uL (0-0.7); Eosinophils % (A) 1 %; HCT 35.7 % (39.0-53.0); HGB 12.3 gm/dL (13.0-17.5); Lymphocytes # (A) 0.8 k/uL (1.0-4.8); Lymphocytes % (A) 5 %; MCHC 34.5 g/dL (31.0-37.0); MCV 84.2 fL (80.0-100.0); Mean Platelet Volume 8.4; Monocytes # (A) 0.5 k/uL (0-1.0); Monocytes % (A) 4 %; Neutrophils # (A) 13.3 k/uL (1.3-7.7); Neutrophils % (A) 86 %; Platelet Count 272 k/uL (150-450); RBC 4.24 m/uL (4.30-5.90); RDW 12.8 % (11.5-15.5); WBC 15.4 k/uL (3.8-10.6)
[2017-11-01 08:24] LABS: Anion Gap 10 mmol/L; Blood Urea Nitrogen 8 mg/dL (9-20); Calcium 7.6 mg/dL (8.4-10.2); Carbon Dioxide 22 mmol/L (22-30); Chloride 105 mmol/L (98-107); Glucose 92 mg/dL (74-99); Potassium 3.3 mmol/L (3.5-5.1); Sodium 137 mmol/L (137-145)
[2017-11-01] MEDS: HEPARIN SODIUM,PORCINE 5,000 UNIT/ML 1 ML VIAL SQ SCH ×3 (08:36→23:32)
[2017-11-01] MEDS: metroNIDAZOLE 500 MG TAB PO SCH ×3 (08:36→20:03)
[2017-11-01] MEDS: METOPROLOL TARTRATE 25 MG TAB PO SCH ×3 (08:36→20:04)
[2017-11-01] MEDS: FUROSEMIDE 40 MG TAB PO SCH (08:36)
[2017-11-01] MEDS: LISINOPRIL 10 MG TAB PO SCH (08:36)
[2017-11-01] MEDS: PANTOPRAZOLE 40 MG TABLET PO SCH (08:37)
[2017-11-01] MEDS: POTASSIUM CHLORIDE ER 10 MEQ TAB.ER.PRT PO SCH (08:37)
[2017-11-01] MEDS: HYDROmorphone 2 MG TAB PO PRN ×2 (08:55→14:46)
[2017-11-01] MEDS ORDERED: POTASSIUM BICARBONATE/CIT AC 20 MEQ TABLET.EFF PO ONE (12:35)
--- NOTE | 2017-11-01 12:35 | P.PN ---
Subjective Progress Note Date: 11/01/17 Principal diagnosis: Perforated appendicitis The patient is feeling okay. Some incisional pain. No nausea or vomiting. He has been ambulating in the halls. Objective - Vital Signs Vital signs: Vital Signs Temp 98.3 F 11/01/17 07:00 Pulse 87 11/01/17 08:00 Resp 16 11/01/17 08:00 BP 141/74 11/01/17 07:00 Pulse Ox 95 11/01/17 07:00 Intake & Output 10/31/17 11/01/17 11/01/17 18:59 06:59 18:59 Intake Total 700 2450 Output Total 21 50 1 Balance 679 2400 -1 Weight 113.398 kg Intake: Intake, IV Titration 700 1350 Amount 0.9% NaCl with KCl 20 Meq 700 1150 /l 1,000 ml @ 100 mls/hr IV .Q10H J[facility]ENCIO Rx#: [id number] Ampicillin-Sulbactam 3 gm 200 In Sodium Chloride 0.9% 100 ml @ 100 mls/hr IVPB Q6HR J[facility]ENCIO Rx#:[id number] Oral 1100 Output: Drainage 20 50 Abdomen 20 50 Stool 1 1 Other: Voiding Method Urinal Urinal # Voids 4 # Bowel Movements 2 2 - Constitutional General appearance: Present: cooperative, no acute distress - Respiratory Respiratory: bilateral: CTA, diminished (Minimally at the bases) - Cardiovascular Rhythm: regular - Gastrointestinal General gastrointestinal: Present: normal bowel sounds, soft Localized gastrointestinal: surgical scar: diffuse (The incision on the right lower quadrant has some open areas with packing. The drainage is somewhat mucoid. There is serous drainage around the SHIRA drain. The bulb for the drain is filled with clear yellow fluid) - Labs CBC & Chem 7: 11/01/17 07:52 11/01/17 07:52 Labs: Abnormal Lab Results - Last 24 Hours (Table) 11/01/17 11/01/17 Range/Units 07:52 07:52 WBC 15.4 H (3.8-10.6) k/uL RBC 4.24 L (4.30-5.90) m/uL Hgb 12.3 L (13.0-17.5) gm/dL Hct 35.7 L (39.0-53.0) % Neutrophils # 13.3 H (1.3-7.7) k/uL Lymphocytes # 0.8 L (1.0-4.8) k/uL Potassium 3.3 L (3.5-5.1) mmol/L BUN 8 L (9-20) mg/dL Creatinine 0.64 L (0.66-1.25) mg/dL Calcium 7.6 L (8.4-10.2) mg/dL Microbiology - Last 24 Hours (Table) 10/24/17 13:15 Blood Culture Gram Stain - Final Blood Blood Culture - Final Anaerobic Gm Positive [facility] Assessment and Plan (1) Acute perforated appendicitis Current Visit: Yes Status: Acute Code(s): K35.2 - ACUTE APPENDICITIS WITH GENERALIZED PERITONITIS SNOMED Code(s): 39334210 (2) Leukocytosis Current Visit: Yes Status: Acute Code(s): D72.829 - ELEVATED WHITE BLOOD CELL COUNT, UNSPECIFIED SNOMED Code(s): 242855705 Plan: Clinically the patient looks improved. We'll start some local wound care. Monitor his white count. Continue broad-spectrum antibiotics. Replace potassium. Hep-Lock IV. He's progressing slowly
[2017-11-02] MEDS: AMPICILLIN-SULBACTAM 3 GM in SODIUM CHLORIDE 0.9% 100 ML IVPB SCH ×4 (04:52→23:24)
--- NOTE | 2017-11-02 05:13 | PN ---
PROGRESS NOTE DATE OF SERVICE: 11/01/2017. REASON FOR FOLLOWUP: Secondary peritonitis from perforated appendicitis. INTERVAL HISTORY: The patient is afebrile he is breathing comfortably. Denies significant chest pain, shortness of breath, cough. Abdominal pain has improved, has output in his SHIRA drain. EXAMINATION: Blood pressure 115/71 with a pulse of 83, temperature 99.4. He is 97% on room air. General description is a middle aged male up in the bed in no distress. Respiratory system unlabored breathing, clear to auscultation anteriorly. Heart S1, S2. Regular rate and rhythm. Abdomen soft, mildly distended. No guarding or rigidity. LABS: Hemoglobin is 12.8 with white count 15.4, BUN of 8, creatinine 0.64. DIAGNOSTIC IMPRESSION AND PLAN: Patient with secondary peritonitis from perforated appendicitis status post CT-guided drainage. Did have slight jump in white count Thursday, did have a fluid collection, question of possible seroma. White count is slightly improved but not normalized. We will discuss surgery for repeating a CT scan tomorrow. Keep the patient on Unasyn and Flagyl at this point to which the organism that has been grown on the cultures are sensitive. Continue supportive care. MMODL / IJN: [id number] /
[2017-11-02 07:31] LABS: Basophils % (A) 0 %; Eosinophils # (A) 0.1 k/uL (0-0.7); Eosinophils % (A) 1 %; HCT 38.3 % (39.0-53.0); HGB 12.2 gm/dL (13.0-17.5); Lymphocytes % (A) 6 %; MCH 27.5 pg (25.0-35.0); MCHC 31.8 g/dL (31.0-37.0); MCV 86.4 fL (80.0-100.0); Monocytes % (A) 5 %; Neutrophils # (A) 15.9 k/uL (1.3-7.7); Neutrophils % (A) 86 %; Platelet Count 317 k/uL (150-450); RBC 4.43 m/uL (4.30-5.90); RDW 13.2 % (11.5-15.5); WBC 18.5 k/uL (3.8-10.6)
[2017-11-02 07:44] LABS: Anion Gap 12 mmol/L; Blood Urea Nitrogen 7 mg/dL (9-20); Calcium 8.4 mg/dL (8.4-10.2); Carbon Dioxide 26 mmol/L (22-30); Chloride 99 mmol/L (98-107); Glucose 92 mg/dL (74-99); Potassium 4.5 mmol/L (3.5-5.1); Sodium 137 mmol/L (137-145)
[2017-11-02] MEDS: 0.9% NACL WITH KCL 20 MEQ/L 1,000 ML IV SCH (08:23)
[2017-11-02] MEDS: METOPROLOL TARTRATE 25 MG TAB PO SCH ×3 (08:45→23:24)
[2017-11-02] MEDS: HEPARIN SODIUM,PORCINE 5,000 UNIT/ML 1 ML VIAL SQ SCH ×4 (08:45→23:27)
[2017-11-02] MEDS: LISINOPRIL 10 MG TAB PO SCH (08:45)
[2017-11-02] MEDS: FUROSEMIDE 40 MG TAB PO SCH (08:45)
[2017-11-02] MEDS: metroNIDAZOLE 500 MG TAB PO SCH ×3 (08:46→20:21)
[2017-11-02] MEDS: POTASSIUM CHLORIDE ER 10 MEQ TAB.ER.PRT PO SCH (08:46)
[2017-11-02] MEDS: PANTOPRAZOLE 40 MG TABLET PO SCH (08:46)
[2017-11-02] MEDS: HYDROmorphone 2 MG TAB PO PRN (10:10)
--- NOTE | 2017-11-02 10:51 | P.PN ---
Subjective Progress Note Date: 11/02/17 10/26/2017 57-year-old male who presented to the emergency room on 10/24/2017 with a chief complaint of abdominal pain. The patient was found to have appendicitis and underwent laparoscopic appendectomy converted to open appendectomy with Dr. Mendez on 10/24/2017. His appendix was found to be perforated and was found to have intra-abdominal peritonitis. Dr. Ma was consulted for medical management. The patient is seen in evaluated sitting up in the chair. Dr. Whiteside is on consult for infectious disease. He is currently receiving Zosyn every 8 hours IV. Preliminary cultures from the patient's appendix are positive for gram-negative bacilli. The patient had an indwelling urinary catheter placed for surgery which was found to be not properly draining. The patient was unable to void since that time. Urology was consulted. A new indwelling coud catheter was placed per urology. Per nursing, the patient had multiple blood clots present. The patient has been tachycardic with a rate in the 110-120s. Cardiology was consulted today and an echocardiogram has been ordered. The patient was febrile overnight with a temperature of 100.6F. This morning he is afebrile with a temperature of 98.8. He is on 4 L nasal cannula with oxygen saturations greater than 92%. The patient had an NG tube to low intermittent suction which has since been discontinued this morning. SHIRA drain is in place with serosanguineous drainage. The patient denies chest pain or pressure. Denies shortness of breath. Denies nausea or vomiting. Denies flatus. No bowel movement. Denies palpitations. States his pain is tolerable at this time. 10/27/2017 Patient seen and examined at the bedside on rounds with Dr. Ma. Patient is awake and alert sitting up in the bed. Patient is tolerating a clear liquid diet. Patient denies nausea or vomiting. Patient states his pain is tolerable at this time. Indwelling urinary catheter remains intact with claudia urine noted. Patient was febrile throughout the night with a temperature of 101.7. He was started on metoprolol per cardiology for tachycardia. Patient denies any concerns or complaints at this time. 10/28/2017 Patient seen and examined at the bedside on rounds with Dr. Ma. Patient states his pain is tolerable at this time. Patient states he has been having multiple bowel movements. C. diff was negative. SHIRA drain remains intact with serous drainage. Indwelling urinary catheter is present with claudia colored urine. Patient's potassium is low this morning at 2.8. Potassium protocol initiated. Patient's tachycardia has improved with the initiation of metoprolol per cardiology. Patient has been afebrile for the last 24 hours. WBC is up to 14.7 from 12.5. Infectious disease is on consult. Yesterday, Dr. Whiteside recommended continuing Unasyn for at least another 24-48 hours. Culture from appendix reveals Escherichia coli and Klebsiella pneumoniae, both susceptible to Unasyn. 10/29/2017 Patient seen and examined at the bedside on rounds with Dr. Ma. Patient is awake and alert. Sitting up in the chair. Patient states his loose stools are resolving. Denies abdominal pain. Denies nausea or vomiting. Tolerating full liquid diet. SHIRA with minimal serous drainage. Jaramillo remains intact. WBC is down to 13.3 today. 10/30/2017 Patient seen and examined. He is sitting up in the chair. Urinary catheter was discontinued yesterday and patient states he has been voiding without difficulty. SHIRA drain remains intact with minimal serous fluid. Case discussed with Dr. Mendez. CT of the abdomen with oral contrast to be completed. WBC increased this AM to 16.0 Potassium is 4.0. Patient states his stools are still loose but improving from the diarrhea he was experiencing. 10/31/2017-Notes per Dr. Ma 11/01/2017-Notes per Dr. Ma 11/02/2017 Patient seen and examined this morning. Patient is sitting up in the chair. SHIRA drain remains intact with serous drainage. Patient complains of mild generalized abdominal pain. Patient states he continues to have loose bowel movements. Patient reports he has been ambulating in the room and hallway. Voiding without difficulty per patient. WBC increased from 15.4-18.5. Patient underwent CT of the abdomen and pelvis on 10/30/2017 which revealed a postoperative seroma versus developing abscess. Patient is scheduled for CT- guided drainage tube insertion today. Objective - Vital Signs Vital signs: Vital Signs Temp 98.8 F 11/02/17 07:00 Pulse 93 11/02/17 07:00 Resp 16 11/02/17 07:00 BP 144/71 11/02/17 07:00 Pulse Ox 98 11/02/17 07:00 Intake & Output 11/01/17 11/02/17 11/02/17 18:59 06:59 18:59 Intake Total 1350 300 Output Total 533 820 7 Balance -533 530 293 Weight 113.398 kg Intake: Intake, IV Titration 500 Amount 0.9% NaCl with KCl 20 Meq 300 /l 1,000 ml @ 100 mls/hr IV .Q10H JVUENCIO Rx#: [id number] Ampicillin-Sulbactam 3 gm 200 In Sodium Chloride 0.9% 100 ml @ 100 mls/hr IVPB Q6HR JUVENCIO Rx#:[id number] Oral 850 300 Output: Drainage 30 20 5 Abdomen 30 20 5 Urine 500 800 Stool 3 2 Other: Voiding Method Urinal Urinal Urinal # Voids 2 3 # Bowel Movements 2 - Exam GENERAL: This is a 57-year-old male in no apparent distress at the time of examination. Pleasant and cooperative. HEENT: Head is atraumatic, normocephalic. Pupils are equal, round, and reactive to light. Sclerae anicteric. Conjunctivae are clear. Mucus membranes of the mouth are moist. Neck is supple. RESPIRATORY: Clear to ausculation. No wheezes, rales, or rhonchi. No use of accessory muscles. Patient maintaining oxygen saturation greater than 92%. No chest wall tenderness is noted on palpation or with deep breathing. CARDIOVASCULAR: Regular rate and rhythm. S1 and S2 noted. No JVD noted. No S3 or S4 noted. GASTROINTESTINAL: Obese. No distention noted. Abdomen soft and round. Bowel sounds auscultated x 4 quadrants. SHIRA drain present with serous drainage. Mild pain and tenderness noted upon palpation. INTEGUMENTARY: Abdominal dressing with serous drainage noted. No cyanosis. No jaundice. No rashes noted. No cellulitis noted. EXTREMITIES: 2+ peripheral pulses. Trace bilateral lower extremity edema. No calf tenderness noted. NEUROLOGIC: Cranial nerves II-XII intact. PSYCHIATRIC: Awake, alert, and oriented X 3. Appropriate affect. Intact judgement and insight. - Labs CBC & Chem 7: 11/02/17 07:01 11/02/17 07:01 Labs: Abnormal Lab Results - Last 24 Hours (Table) 11/02/17 11/02/17 Range/Units 07:01 07:01 WBC 18.5 H (3.8-10.6) k/uL Hgb 12.2 L (13.0-17.5) gm/dL Hct 38.3 L (39.0-53.0) % Neutrophils # 15.9 H (1.3-7.7) k/uL BUN 7 L (9-20) mg/dL Assessment and Plan Plan: ASSESSMENT: Laparoscopic appendectomy converted to open appendectomy secondary to perforated appendix with intra-abdominal stool, POD #9 Sepsis with elevated lactic acid, leukocytosis, and tachycardia, secondary to above Essential hypertension Tachycardia, improved with addition of beta-ana, cardiology consulted Urinary retention with blood clots noted, s/p insertion of indwelling urinary catheter per urology which has since been discontinued Nicotine dependence, patient is a current everyday cigarette smoker Obesity: BMI 38.0 PLAN: Continue postoperative care per Dr. Mendez Continue abdominal wound care with Aquacel silver every other day per attendings orders Patient scheduled for CT-guided drainage tube insertion today Discontinue IV fluid as patient has been tolerating PO intake Cardiology on consult for tachycardia Continue metoprolol per cardiology Activity as tolerated Incentive spirometer 10 times an hour while awake Pain control Infectious disease on consult. Continue Unasyn Home meds as appropriate Monitor labs Smoking cessation recommended GI prophylaxis: Protonix 40 mg IV Daily DVT prophylaxis: Heparin 5000 units subcu every 8 hours Monitor vital signs and address as appropriate Further recommendations pending patient's course Nurse practitioner note has been reviewed by physician. Signing provider agrees with the documented findings, assessment, and plan of care.
--- NOTE | 2017-11-02 11:07 | CT ---
EXAMINATION TYPE: CT discontinued procedure DATE OF EXAM: 11/02/2017 COMPARISON: CT abdomen pelvis 10/30/2017 HISTORY: Discontinued abscess drainage/procedure CT DLP: 871 mGycm Automated exposure control for dose reduction was used. Helical imaging through the lower abdomen FINDINGS: The abnormal fluid collection is seen deep to multiple bowel loops. Fluid collection deep within the pelvis also again noted. IMPRESSION: THERE IS NOT THOUGHT TO BE IN ADEQUATE PERCUTANEOUS ACCESS FOR THE FLUID COLLECTION IN THE RIGHT LOWE R QUADRANT. THE FLUID COLLECTION IN THE PELVIS AGAIN SEEN. No abscess drainage performed at this time . Results relayed to the referring clinician.
--- NOTE | 2017-11-02 14:08 | P.PN ---
Subjective Progress Note Date: 11/02/17 Patient seen and examined at bedside. States his abdominal pain is improved. Denies any fevers, chills, chest pain or shortness of breath. He is ambulating well. He is tolerating his diet and having bowel function. He has no complaints at this time. SHIRA drain is in place with serous output. Objective - Vital Signs Vital signs: Vital Signs Temp 98.8 F 11/02/17 07:00 Pulse 93 11/02/17 07:00 Resp 16 11/02/17 07:00 BP 144/71 11/02/17 07:00 Pulse Ox 98 11/02/17 07:00 Intake & Output 11/01/17 11/02/17 11/02/17 18:59 06:59 18:59 Intake Total 1350 300 Output Total 533 820 12 Balance -533 530 288 Weight 113.398 kg Intake: Intake, IV Titration 500 Amount 0.9% NaCl with KCl 20 Meq 300 /l 1,000 ml @ 100 mls/hr IV .Q10H [facility] Rx#: [id number] Ampicillin-Sulbactam 3 gm 200 In Sodium Chloride 0.9% 100 ml @ 100 mls/hr IVPB Q6HR [facility] Rx#:[id number] Oral 850 300 Output: Drainage 30 20 10 Abdomen 30 20 10 Urine 500 800 Stool 3 2 Other: Voiding Method Urinal Urinal Urinal # Voids 2 3 # Bowel Movements 2 - Constitutional General appearance: Present: cooperative - EENT ENT: Present: hearing grossly normal - Respiratory Details: No difficulty with respiration - Gastrointestinal Gastrointestinal Comment(s): Soft, appropriate tenderness, nondistended, no rebound, no guarding, incision site clean, dry and intact - Musculoskeletal Musculoskeletal: Present: generalized weakness - Psychiatric Psychiatric: Present: A&O x's 3 - Labs CBC & Chem 7: 11/02/17 07:01 11/02/17 07:01 Labs: Abnormal Lab Results - Last 24 Hours (Table) 11/02/17 11/02/17 Range/Units 07:01 07:01 WBC 18.5 H (3.8-10.6) k/uL Hgb 12.2 L (13.0-17.5) gm/dL Hct 38.3 L (39.0-53.0) % Neutrophils # 15.9 H (1.3-7.7) k/uL BUN 7 L (9-20) mg/dL Assessment and Plan (1) Acute appendicitis Narrative/Plan: Laparoscopic appendectomy converted to open appendectomy - Continue antibiotics per infectious disease. I did discuss the case with infectious disease today. Due to continuing increased white count and the inability to drain this fluid collection by interventional radiology, the plan will be to perform a diagnostic laparoscopy and abdominal washout of this area. I did discuss this with the patient and the patient is agreeable to this plan. - Continue soft diet. Nothing by mouth after midnight - Persistent tachycardia improved after evaluation by cardiology, further resuscitation was provided along with beta ana - Patient is using his incentive spirometry and ambulating - Continue DVT prophylaxis with subcutaneous heparin - Increase activity - Pain control - Prognosis guarded Current Visit: Yes Status: Acute Code(s): K35.80 - UNSPECIFIED ACUTE APPENDICITIS SNOMED Code(s): 04333163
--- NOTE | 2017-11-02 22:47 | PN ---
PROGRESS NOTE DATE OF SERVICE: 11/02/2017. REASON FOR FOLLOWUP: Secondary peritonitis abdominal abscess from ruptured appendicitis. INTERVAL HISTORY: The patient is afebrile, has been breathing comfortably. Denies having any chest pain or shortness of breath or cough. His abdominal pain seemed to have improved. No nausea, vomiting. Did have a bowel movement. EXAMINATION: Blood pressure 113/68 with a pulse of 80, temperature 96.3. He is 95% on room air. General description is a middle aged male up in the bed in no distress. Respiratory system unlabored breathing. Clear to auscultation anteriorly. Heart S1, S2. Regular rate and rhythm. Abdomen soft. Slightly distended. No guarding. LABS: White count of 18.5 today. BUN of 7, creatinine 0.70. DIAGNOSTIC IMPRESSION AND PLAN: Patient with abdominal abscess from ruptured appendicitis, now with new abscess collection that could not be drained. CT-guided possible plan for a laparoscopic drainage of this abscess and deep cultures. Keep the patient on Flagyl at this time with adjustment of antibiotic further based on the culture report. Continue supportive care. MMODL / IJN: [id number] /
[2017-11-03] MEDS: AMPICILLIN-SULBACTAM 3 GM in SODIUM CHLORIDE 0.9% 100 ML IVPB SCH ×4 (05:49→23:22)
[2017-11-03 07:41] LABS: Basophils % (A) 0 %; Eosinophils # (A) 0.1 k/uL (0-0.7); Eosinophils % (A) 1 %; HGB 11.1 gm/dL (13.0-17.5); Lymphocytes % (A) 7 %; MCH 27.3 pg (25.0-35.0); MCHC 31.8 g/dL (31.0-37.0); MCV 85.8 fL (80.0-100.0); Mean Platelet Volume 9.1; Monocytes # (A) 0.9 k/uL (0-1.0); Monocytes % (A) 6 %; Neutrophils # (A) 11.8 k/uL (1.3-7.7); Neutrophils % (A) 83 %; Platelet Count 309 k/uL (150-450); RBC 4.09 m/uL (4.30-5.90); RDW 13.2 % (11.5-15.5); WBC 14.2 k/uL (3.8-10.6)
[2017-11-03 08:02] LABS: Anion Gap 10 mmol/L; Blood Urea Nitrogen 8 mg/dL (9-20); Calcium 8.1 mg/dL (8.4-10.2); Carbon Dioxide 25 mmol/L (22-30); Chloride 102 mmol/L (98-107); Glucose 96 mg/dL (74-99); Potassium 3.7 mmol/L (3.5-5.1); Sodium 137 mmol/L (137-145)
[2017-11-03] MEDS: LISINOPRIL 10 MG TAB PO SCH (08:57)
[2017-11-03] MEDS: METOPROLOL TARTRATE 25 MG TAB PO SCH ×3 (08:57→22:15)
[2017-11-03] MEDS: HEPARIN SODIUM,PORCINE 5,000 UNIT/ML 1 ML VIAL SQ SCH ×3 (08:57→23:23)
[2017-11-03] MEDS ORDERED: IV FLUID CONTINUATION 1,000 ML IV ONE (13:48)
--- NOTE | 2017-11-03 14:16 | P.PN ---
Subjective Progress Note Date: 11/03/17 10/26/2017 57-year-old male who presented to the emergency room on 10/24/2017 with a chief complaint of abdominal pain. The patient was found to have appendicitis and underwent laparoscopic appendectomy converted to open appendectomy with Dr. Mendez on 10/24/2017. His appendix was found to be perforated and was found to have intra-abdominal peritonitis. Dr. Ma was consulted for medical management. The patient is seen in evaluated sitting up in the chair. Dr. Whiteside is on consult for infectious disease. He is currently receiving Zosyn every 8 hours IV. Preliminary cultures from the patient's appendix are positive for gram-negative bacilli. The patient had an indwelling urinary catheter placed for surgery which was found to be not properly draining. The patient was unable to void since that time. Urology was consulted. A new indwelling coud catheter was placed per urology. Per nursing, the patient had multiple blood clots present. The patient has been tachycardic with a rate in the 110-120s. Cardiology was consulted today and an echocardiogram has been ordered. The patient was febrile overnight with a temperature of 100.6F. This morning he is afebrile with a temperature of 98.8. He is on 4 L nasal cannula with oxygen saturations greater than 92%. The patient had an NG tube to low intermittent suction which has since been discontinued this morning. SHIRA drain is in place with serosanguineous drainage. The patient denies chest pain or pressure. Denies shortness of breath. Denies nausea or vomiting. Denies flatus. No bowel movement. Denies palpitations. States his pain is tolerable at this time. 10/27/2017 Patient seen and examined at the bedside on rounds with Dr. Ma. Patient is awake and alert sitting up in the bed. Patient is tolerating a clear liquid diet. Patient denies nausea or vomiting. Patient states his pain is tolerable at this time. Indwelling urinary catheter remains intact with claudia urine noted. Patient was febrile throughout the night with a temperature of 101.7. He was started on metoprolol per cardiology for tachycardia. Patient denies any concerns or complaints at this time. 10/28/2017 Patient seen and examined at the bedside on rounds with Dr. Ma. Patient states his pain is tolerable at this time. Patient states he has been having multiple bowel movements. C. diff was negative. SHIRA drain remains intact with serous drainage. Indwelling urinary catheter is present with claudia colored urine. Patient's potassium is low this morning at 2.8. Potassium protocol initiated. Patient's tachycardia has improved with the initiation of metoprolol per cardiology. Patient has been afebrile for the last 24 hours. WBC is up to 14.7 from 12.5. Infectious disease is on consult. Yesterday, Dr. Whiteside recommended continuing Unasyn for at least another 24-48 hours. Culture from appendix reveals Escherichia coli and Klebsiella pneumoniae, both susceptible to Unasyn. 10/29/2017 Patient seen and examined at the bedside on rounds with Dr. Ma. Patient is awake and alert. Sitting up in the chair. Patient states his loose stools are resolving. Denies abdominal pain. Denies nausea or vomiting. Tolerating full liquid diet. SHIRA with minimal serous drainage. Jaramillo remains intact. WBC is down to 13.3 today. 10/30/2017 Patient seen and examined. He is sitting up in the chair. Urinary catheter was discontinued yesterday and patient states he has been voiding without difficulty. SHIRA drain remains intact with minimal serous fluid. Case discussed with Dr. Mendez. CT of the abdomen with oral contrast to be completed. WBC increased this AM to 16.0 Potassium is 4.0. Patient states his stools are still loose but improving from the diarrhea he was experiencing. 10/31/2017-Notes per Dr. Ma 11/01/2017-Notes per Dr. Ma 11/02/2017 Patient seen and examined this morning. Patient is sitting up in the chair. SHIRA drain remains intact with serous drainage. Patient complains of mild generalized abdominal pain. Patient states he continues to have loose bowel movements. Patient reports he has been ambulating in the room and hallway. Voiding without difficulty per patient. WBC increased from 15.4-18.5. Patient underwent CT of the abdomen and pelvis on 10/30/2017 which revealed a postoperative seroma versus developing abscess. Patient is scheduled for CT- guided drainage tube insertion today. 11/03/2017 Patient seen and examined at the bedside. Patient was scheduled for CT-guided drainage tube insertion yesterday but the procedure was canceled as there was not thought to be an adequate amount of fluid collection to be drained. The patient is scheduled for diagnostic laparoscopy with abdominal washout today with Dr. Mendez. WBC this morning is 14.2, down from 18.5. Patient remains on Unasyn and Flagyl per infectious disease. He is afebrile. He remains hemodynamically stable. Objective - Vital Signs Vital signs: Vital Signs Temp 98 F 11/03/17 07:00 Pulse 79 11/03/17 07:00 Resp 14 11/03/17 07:00 BP 121/68 11/03/17 07:00 Pulse Ox 98 11/03/17 07:00 Intake & Output 11/02/17 11/03/17 11/03/17 18:59 06:59 18:59 Intake Total 300 0 Output Total 412 610 Balance -112 -610 0 Intake: Oral 300 0 Output: Drainage 10 10 Abdomen 10 10 Urine 400 600 Stool 2 Other: Voiding Method Urinal Urinal # Voids 1 - Exam GENERAL: This is a 57-year-old male in no apparent distress at the time of examination. Pleasant and cooperative. HEENT: Head is atraumatic, normocephalic. Pupils are equal, round, and reactive to light. Sclerae anicteric. Conjunctivae are clear. Mucus membranes of the mouth are moist. Neck is supple. RESPIRATORY: Clear to ausculation. No wheezes, rales, or rhonchi. No use of accessory muscles. Patient maintaining oxygen saturation greater than 92%. No chest wall tenderness is noted on palpation or with deep breathing. CARDIOVASCULAR: Regular rate and rhythm. S1 and S2 noted. No JVD noted. No S3 or S4 noted. GASTROINTESTINAL: Obese. No distention noted. Abdomen soft and round. Bowel sounds auscultated x 4 quadrants. SHIRA drain present with serous drainage. Mild pain and tenderness noted upon palpation. INTEGUMENTARY: Abdominal dressing with serous drainage noted. No cyanosis. No jaundice. No rashes noted. No cellulitis noted. EXTREMITIES: 2+ peripheral pulses. Trace bilateral lower extremity edema. No calf tenderness noted. NEUROLOGIC: Cranial nerves II-XII intact. PSYCHIATRIC: Awake, alert, and oriented X 3. Appropriate affect. Intact judgement and insight. - Labs CBC & Chem 7: 11/03/17 07:13 11/03/17 07:13 Labs: Abnormal Lab Results - Last 24 Hours (Table) 11/03/17 11/03/17 Range/Units 07:13 07:13 WBC 14.2 H (3.8-10.6) k/uL RBC 4.09 L (4.30-5.90) m/uL Hgb 11.1 L (13.0-17.5) gm/dL Hct 35.0 L (39.0-53.0) % Neutrophils # 11.8 H (1.3-7.7) k/uL BUN 8 L (9-20) mg/dL Creatinine 0.63 L (0.66-1.25) mg/dL Calcium 8.1 L (8.4-10.2) mg/dL Assessment and Plan Plan: ASSESSMENT: Laparoscopic appendectomy converted to open appendectomy secondary to perforated appendix with intra-abdominal stool, POD #10 Sepsis with elevated lactic acid, leukocytosis, and tachycardia, secondary to above Essential hypertension Tachycardia, improved with addition of beta-ana, cardiology consulted Urinary retention with blood clots noted, s/p insertion of indwelling urinary catheter per urology which has since been discontinued Nicotine dependence, patient is a current everyday cigarette smoker Obesity: BMI 38.0 PLAN: Continue postoperative care per Dr. Mendez Patient scheduled for diagnostic laparoscopy and abdominal washout today Continue metoprolol per cardiology Activity as tolerated Incentive spirometer 10 times an hour while awake Pain control Infectious disease on consult. Continue Unasyn and Flagyl Home meds as appropriate Monitor labs Smoking cessation recommended GI prophylaxis: Protonix 40 mg IV Daily DVT prophylaxis: Heparin 5000 units subcu every 8 hours Monitor vital signs and address as appropriate Further recommendations pending patient's course Nurse practitioner note has been reviewed by physician. Signing provider agrees with the documented findings, assessment, and plan of care.
[2017-11-03] MEDS ORDERED: PROPOFOL 10 MG/ML 20 ML VIAL IV ONE (15:04)
[2017-11-03] MEDS ORDERED: NEOSTIGMINE 1 MG/ML 10 ML VIAL ONE (15:04)
[2017-11-03] MEDS ORDERED: MIDAZOLAM 2 MG/2 ML VIAL ONE (15:04)
[2017-11-03] MEDS ORDERED: LIDOCAINE 1% INJ 10MG/ML (20 ML MDV) ONE (15:04)
[2017-11-03] MEDS ORDERED: GLYCOPYRROLATE 0.2 MG/ML 2 ML VIAL ONE (15:04)
[2017-11-03] MEDS ORDERED: SUCCINYLCHOLINE CHLORIDE 100 MG/5 ML SYR IV ONE (15:04)
[2017-11-03] MEDS ORDERED: fentaNYL (PF) 50 MCG/ML 2 ML AMP ONE (15:04)
[2017-11-03] MEDS ORDERED: ROCURONIUM BROMIDE 10 MG/ML 10 ML VIAL IV ONE (15:04)
[2017-11-03] MEDS ORDERED: LIDOCAINE 1%-EPI 1:100,000 30 ML VIAL SQ ONE ×2 (15:32)
[2017-11-03] MEDS ORDERED: LACTATED RINGERS 1,000 ML IV ONE (15:53)
[2017-11-03] MEDS ORDERED: MORPHINE SULFATE 10 MG/ML SYRINGE IVP ONE (17:00)
--- NOTE | 2017-11-03 17:03 | P.OP ---
Date of Procedure: 11/03/17 Preoperative Diagnosis: Intra-abdominal abscess Postoperative Diagnosis: Intra-abdominal abscess 2 Incisional hernia Procedure(s) Performed: Diagnostic laparoscopy Intra-abdominal abscess washout Incisional hernia repair, primary Anesthesia: RENAN Surgeon: Sriram Mendez Assistant Surveyor #1: Jose Juan Vitale Pathology: other (Wound culture) Condition: stable Disposition: floor Indications for Procedure: 57-year-old male with recent history of perforated appendicitis. He has been treated as an inpatient with antibiotics status post his open appendectomy. He did develop an increasing leukocytosis and some febrile episodes. Computed tomography scan did reveal patient had a intra-abdominal abscess. This was not able to be drained by interventional radiology. Secondary to this, the plan is for diagnostic laparoscopy with abscess washout. The patient is agreeable to this plan. He was excellent the risks, benefits and alternatives to the procedure. The patient did provide consent prior to attending the operating suite. Operative Findings: Deep pelvis abscess. Abscess in right lower quadrant. Incisional hernia defect at previous open appendectomy site. Description of Procedure: The patient was brought to the operating suite placed in supine position on the operating table. Sedation was provided by anesthesia and the patient underwent endotracheal intubation. The patient was then prepped and draped in regular sterile fashion. The previous SHIRA drain was removed. A left upper quadrant incision was made and the abdomen was entered under direct visualization using a Visiport. Pneumoperitoneum was then achieved. There were notable adhesions in the lower part of the abdomen. Blunt dissection was used to free these adhesions. This took approximately 30 minutes. Once this was clear was noted that the patient did have purulent drainage in the right lower quadrant. Suction was used to suction out this purulent drainage. Irrigation was then used copiously in this area. Further examination of the pelvis revealed an additional purulent collection. This was thoroughly irrigated and suctioned. There is no evidence of additional purulent material at this time. A drain was placed in the deep pelvis. This was sutured into place with a 2-0 nylon suture. The incisional hernia that was noted was in the site of the previous open appendectomy. This area was noted to be draining some of the purulent material that was in the right lower quadrant. Wound culture was taken at that site. Crawford were removed from the previous incision site. The fascia was clearly visualized. This area fascia was noted to be friable and very inflamed. Its is likely secondary to the underlying infection. A Stretta fix 0 suture was used to close this defect. Copious amounts of irrigation was then used in the wound. Once this was completed the skin was closed using skin stefan. A Prevena dressing was then placed over this incision. All other skin and incisions were then closed using skin stefan. This was done after pneumoperitoneum was evacuated. The patient was awakened in the operating suite and taken to postanesthesia care unit in stable condition.
[2017-11-03] MEDS ORDERED: ONDANSETRON 4 MG/2 ML VIAL IVP ONE (17:05)
[2017-11-03] MEDS ORDERED: fentaNYL (PF) 50 MCG/ML 2 ML AMP IVP ONE (17:18)
[2017-11-03] MEDS ORDERED: MORPHINE SULFATE/PF 10MG/10ML VL IVP PRN (19:00)
[2017-11-03] MEDS: FUROSEMIDE 40 MG TAB PO SCH (19:08)
[2017-11-03] MEDS: metroNIDAZOLE 500 MG TAB PO SCH ×3 (19:08→22:15)
[2017-11-03] MEDS: PANTOPRAZOLE 40 MG TABLET PO SCH (19:11)
[2017-11-03] MEDS: POTASSIUM CHLORIDE ER 10 MEQ TAB.ER.PRT PO SCH ×2 (19:11→19:41)
--- NOTE | 2017-11-03 21:52 | PN ---
PROGRESS NOTE DATE OF SERVICE: 11/03/2017 REASON FOR FOLLOWUP: Abdominal abscess. INTERVAL HISTORY: The patient is afebrile. He was taken to the OR this morning. He is status post diagnostic laparoscopy with abnormal intraabdominal abscess washout, incisional hernia repair. The patient tolerated the procedure. Culture has been obtained. Hemodynamically stable. Pain controlled. No nausea or vomiting. PHYSICAL EXAMINATION: Blood pressure 128/74 with a pulse of 82, temperature of 98. He is 96% on 2 L nasal cannula. General description is a middle-aged male lying in bed in no distress. RESPIRATORY SYSTEM: Unlabored breathing. Clear to auscultation anteriorly. HEART: S1, S2. Regular rate and rhythm. ABDOMEN: Soft, mildly tender. No guarding or rigidity. EXTREMITIES: No edema of the feet. LABS: Hemoglobin 11.1, white count 14.2, BUN of 8, creatinine 0.63. DIAGNOSTIC IMPRESSION AND PLAN: Patient with an abdominal abscess from ruptured appendicitis, status post appendectomy, with subsequent abscess formation, status post laparoscopic washout of this abscess and incisional hernia repair. We will follow up on the repeat cultures. Keep the patient on the Unasyn and Flagyl, to which the previous organisms were sensitive. Continue supportive care. MMODL / IJN: [id number] /
[2017-11-03] MEDS: HYDROcodone/APAP 5-325MG 1 EACH TAB PO PRN (23:22)
[2017-11-03] MEDS ORDERED: ACETAMINOPHEN IV (For NPO) 1,000 MG in EMPTY BAG 1 BAG IVPB PRN (23:46)
[2017-11-03] MEDS ORDERED: SODIUM CHLORIDE 0.9% 250 ML IV ONE (23:46)
[2017-11-04] MEDS: SODIUM CHLORIDE 0.9% 1,000 ML IV SCH ×2 (01:34→10:10)
[2017-11-04] MEDS: AMPICILLIN-SULBACTAM 3 GM in SODIUM CHLORIDE 0.9% 100 ML IVPB SCH (07:13)
[2017-11-04 07:50] LABS: Anion Gap 9 mmol/L; Blood Urea Nitrogen 10 mg/dL (9-20); Calcium 7.9 mg/dL (8.4-10.2); Carbon Dioxide 27 mmol/L (22-30); Chloride 100 mmol/L (98-107); Glucose 85 mg/dL (74-99); Potassium 4.7 mmol/L (3.5-5.1); Sodium 136 mmol/L (137-145)
[2017-11-04 07:51] LABS: Basophils # (A) 0.1 k/uL (0-0.2); Basophils % (A) 0 %; Eosinophils % (A) 0 %; HCT 35.1 % (39.0-53.0); HGB 11.8 gm/dL (13.0-17.5); Lymphocytes # (A) 1.2 k/uL (1.0-4.8); Lymphocytes % (A) 6 %; MCH 28.8 pg (25.0-35.0); MCHC 33.6 g/dL (31.0-37.0); MCV 85.9 fL (80.0-100.0); Mean Platelet Volume 8.1; Monocytes # (A) 0.7 k/uL (0-1.0); Monocytes % (A) 4 %; Neutrophils # (A) 16.3 k/uL (1.3-7.7); Neutrophils % (A) 87 %; Platelet Count 372 k/uL (150-450); RBC 4.09 m/uL (4.30-5.90); WBC 18.7 k/uL (3.8-10.6)
[2017-11-04] MEDS: PANTOPRAZOLE 40 MG TABLET PO SCH (09:24)
[2017-11-04] MEDS: metroNIDAZOLE 500 MG TAB PO SCH ×3 (09:24→22:29)
[2017-11-04] MEDS: METOPROLOL TARTRATE 25 MG TAB PO SCH ×3 (09:24→22:29)
[2017-11-04] MEDS: POTASSIUM CHLORIDE ER 10 MEQ TAB.ER.PRT PO SCH (09:24)
[2017-11-04] MEDS: FUROSEMIDE 40 MG TAB PO SCH (09:24)
[2017-11-04] MEDS: LISINOPRIL 10 MG TAB PO SCH (09:24)
[2017-11-04] MEDS: HEPARIN SODIUM,PORCINE 5,000 UNIT/ML 1 ML VIAL SQ SCH ×2 (09:24→16:46)
--- NOTE | 2017-11-04 09:52 | CDI ---
Last Revision, July 2017 Documentation Clarification Form Date: 11/03/2017 From: Kaela De La GarzaOdonnellSARATH terry, CCDS Admit Date: 10/25/2017 10:06:00 AM Patient Name: Dallas Mcclure Visit Number: [id number] Discharge Date: ATTENTION: The Clinical Documentation Specialists (CDI) and [facility] Coding Staff appreciate your assistance in clarifying documentation. Please respond to the clarification below the line at the bottom and electronically sign. The CDI & [facility] Coding staff will review the response and follow-up if needed. Please note: Queries are made part of the Legal Health Record. If you have any questions, please contact the author of this message via ITS. Dr. Jw Chanel: Urinary retention is documented in the Urology Consult. Patients Admitting Diagnosis: Presented to with an acute perforated appendicitis & intra-abdominal peritonitis. Post-Operative Diagnosis: Same. Procedure performed: Lap Appendectomy converted to Open Appendectomy History/Risk Factors: Unremarkable urologic history, Hypertension, Smoker. Clinical Indicators: Jaramillo cath was placed w/difficulty, the catheter was not draining properly, removed, unable to void since removal. Treatment: Jaramillo catheter inserted into the bladder. In order to accurately reflect this patients severity of illness, please clarify if the post-operative diagnosis of urinary retention is: An expected post-procedural or post-surgical condition Integral to the procedure Inherent to the procedure An unexpected post-procedural or post-surgical condition related to surgical care Other, please specify Unable to determine Please continue to document in your progress notes and discharge summary in order to capture severity of illness and risk of mortality. Include clinical findings that support your diagnosis. MTDD
[2017-11-04] MEDS: PIPERACILLIN-TAZOBACTAM 3.375 GM in DEXTROSE/WATER 1 50ML.BAG IVPB SCH ×2 (10:10→16:45)
--- NOTE | 2017-11-04 13:46 | P.PN ---
Subjective Progress Note Date: 11/04/17 10/26/2017 57-year-old male who presented to the emergency room on 10/24/2017 with a chief complaint of abdominal pain. The patient was found to have appendicitis and underwent laparoscopic appendectomy converted to open appendectomy with Dr. Mendez on 10/24/2017. His appendix was found to be perforated and was found to have intra-abdominal peritonitis. Dr. Ma was consulted for medical management. The patient is seen in evaluated sitting up in the chair. Dr. Whiteside is on consult for infectious disease. He is currently receiving Zosyn every 8 hours IV. Preliminary cultures from the patient's appendix are positive for gram-negative bacilli. The patient had an indwelling urinary catheter placed for surgery which was found to be not properly draining. The patient was unable to void since that time. Urology was consulted. A new indwelling coud catheter was placed per urology. Per nursing, the patient had multiple blood clots present. The patient has been tachycardic with a rate in the 110-120s. Cardiology was consulted today and an echocardiogram has been ordered. The patient was febrile overnight with a temperature of 100.6F. This morning he is afebrile with a temperature of 98.8. He is on 4 L nasal cannula with oxygen saturations greater than 92%. The patient had an NG tube to low intermittent suction which has since been discontinued this morning. SHIRA drain is in place with serosanguineous drainage. The patient denies chest pain or pressure. Denies shortness of breath. Denies nausea or vomiting. Denies flatus. No bowel movement. Denies palpitations. States his pain is tolerable at this time. 10/27/2017 Patient seen and examined at the bedside on rounds with Dr. Ma. Patient is awake and alert sitting up in the bed. Patient is tolerating a clear liquid diet. Patient denies nausea or vomiting. Patient states his pain is tolerable at this time. Indwelling urinary catheter remains intact with claudia urine noted. Patient was febrile throughout the night with a temperature of 101.7. He was started on metoprolol per cardiology for tachycardia. Patient denies any concerns or complaints at this time. 10/28/2017 Patient seen and examined at the bedside on rounds with Dr. Ma. Patient states his pain is tolerable at this time. Patient states he has been having multiple bowel movements. C. diff was negative. SHIRA drain remains intact with serous drainage. Indwelling urinary catheter is present with claudia colored urine. Patient's potassium is low this morning at 2.8. Potassium protocol initiated. Patient's tachycardia has improved with the initiation of metoprolol per cardiology. Patient has been afebrile for the last 24 hours. WBC is up to 14.7 from 12.5. Infectious disease is on consult. Yesterday, Dr. Whiteside recommended continuing Unasyn for at least another 24-48 hours. Culture from appendix reveals Escherichia coli and Klebsiella pneumoniae, both susceptible to Unasyn. 10/29/2017 Patient seen and examined at the bedside on rounds with Dr. Ma. Patient is awake and alert. Sitting up in the chair. Patient states his loose stools are resolving. Denies abdominal pain. Denies nausea or vomiting. Tolerating full liquid diet. SHIRA with minimal serous drainage. Jaramillo remains intact. WBC is down to 13.3 today. 10/30/2017 Patient seen and examined. He is sitting up in the chair. Urinary catheter was discontinued yesterday and patient states he has been voiding without difficulty. SHIRA drain remains intact with minimal serous fluid. Case discussed with Dr. Mendez. CT of the abdomen with oral contrast to be completed. WBC increased this AM to 16.0 Potassium is 4.0. Patient states his stools are still loose but improving from the diarrhea he was experiencing. 10/31/2017-Notes per Dr. Ma 11/01/2017-Notes per Dr. Ma 11/02/2017 Patient seen and examined this morning. Patient is sitting up in the chair. SHIRA drain remains intact with serous drainage. Patient complains of mild generalized abdominal pain. Patient states he continues to have loose bowel movements. Patient reports he has been ambulating in the room and hallway. Voiding without difficulty per patient. WBC increased from 15.4-18.5. Patient underwent CT of the abdomen and pelvis on 10/30/2017 which revealed a postoperative seroma versus developing abscess. Patient is scheduled for CT- guided drainage tube insertion today. 11/03/2017 Patient seen and examined at the bedside. Patient was scheduled for CT-guided drainage tube insertion yesterday but the procedure was canceled as there was not thought to be an adequate amount of fluid collection to be drained. The patient is scheduled for diagnostic laparoscopy with abdominal washout today with Dr. Mendez. WBC this morning is 14.2, down from 18.5. Patient remains on Unasyn and Flagyl per infectious disease. He is afebrile. He remains hemodynamically stable. 11/04/2017 Patient seen and examined at the bedside. patient underwent diagnostic laparoscopy, intra-abdominal abscess washout, and incisional hernia repair yesterday by Dr. Mendez. SHIRA drain was removed in OR. New SHIRA drain and prevera wound vac placed. Wound cultures are currently pending. WBC this morning is 18.7 , up from 14.2. Hemoglobin is 11.9. infectious disease remains on consult. Patient is currently on Zosyn every 8 hours IV and Flagyl. Patient did have a fever last night of 101.6. This morning he is afebrile. Patient reports mild abdominal pain. Patient denies nausea or vomiting. Objective - Vital Signs Vital signs: Vital Signs Temp 98.1 F 11/04/17 07:00 Pulse 91 11/04/17 07:00 Resp 16 11/04/17 07:00 BP 113/73 11/04/17 07:00 Pulse Ox 93 L 11/04/17 07:00 Intake & Output 11/03/17 11/04/17 11/04/17 18:59 06:59 18:59 Intake Total 2300 Output Total 375 200 Balance 1925 -200 Intake: IV 2300 Sodium Chloride 0.9% 1, 800 000 ml @ 150 mls/hr IV . Q6H40M [facility] Rx#:[id number] Oral 0 Output: Urine 225 200 Estimated Blood Loss 150 Other: Voiding Method Urinal Urinal # Voids 2 1 - Exam GENERAL: This is a 57-year-old male in no apparent distress at the time of examination. Pleasant and cooperative. HEENT: Head is atraumatic, normocephalic. Pupils are equal, round, and reactive to light. Sclerae anicteric. Conjunctivae are clear. Mucus membranes of the mouth are moist. Neck is supple. RESPIRATORY: Clear to ausculation. No wheezes, rales, or rhonchi. No use of accessory muscles. Patient maintaining oxygen saturation greater than 92%. No chest wall tenderness is noted on palpation or with deep breathing. CARDIOVASCULAR: Regular rate and rhythm. S1 and S2 noted. No JVD noted. No S3 or S4 noted. GASTROINTESTINAL: SHIRA drain noted with serosanguineous drainage. Prevera wound vac system in place to right lower quadrant with no output noted. Obese. No distention noted. Abdomen soft and round. Hypoactive bowel sounds auscultated x 4 quadrants. Mild pain and tenderness noted upon palpation. INTEGUMENTARY: Abdominal dressing CDI. No cyanosis. No jaundice. No rashes noted. No cellulitis noted. EXTREMITIES: 2+ peripheral pulses. Trace bilateral lower extremity edema. No calf tenderness noted. NEUROLOGIC: Cranial nerves II-XII intact. PSYCHIATRIC: Awake, alert, and oriented X 3. Appropriate affect. Intact judgement and insight. - Labs CBC & Chem 7: 11/04/17 06:45 11/04/17 06:45 Labs: Abnormal Lab Results - Last 24 Hours (Table) 11/04/17 11/04/17 Range/Units 06:45 06:45 WBC 18.7 H (3.8-10.6) k/uL RBC 4.09 L (4.30-5.90) m/uL Hgb 11.8 L (13.0-17.5) gm/dL Hct 35.1 L (39.0-53.0) % Neutrophils # 16.3 H (1.3-7.7) k/uL Sodium 136 L (137-145) mmol/L Calcium 7.9 L (8.4-10.2) mg/dL Microbiology - Last 24 Hours (Table) 11/03/17 15:25 Gram Stain - Preliminary Incision Wound Culture - Preliminary 11/03/17 15:25 Anaerobic Culture - Preliminary Incision Assessment and Plan Plan: ASSESSMENT: Laparoscopic appendectomy converted to open appendectomy secondary to perforated appendix with intra-abdominal stool, POD #11 S/P Diagnostic laparoscopy, intra-abdominal abscess washout, and incisional hernia repair, POD #1 Sepsis with elevated lactic acid, leukocytosis, and tachycardia, secondary to above Essential hypertension Tachycardia, improved with addition of beta-ana, cardiology consulted Urinary retention with blood clots noted, s/p insertion of indwelling urinary catheter per urology which has since been discontinued Nicotine dependence, patient is a current everyday cigarette smoker Obesity: BMI 38.0 PLAN: Continue postoperative care per Dr. Mendez Continue metoprolol per cardiology Activity as tolerated Incentive spirometer 10 times an hour while awake Pain control Infectious disease on consult. Continue Zosyn and Flagyl Await results of wound cultures Home meds as appropriate Monitor labs Smoking cessation recommended GI prophylaxis: Protonix 40 mg PO Daily DVT prophylaxis: Heparin 5000 units subcu every 8 hours Monitor vital signs and address as appropriate Further recommendations pending patient's course Nurse practitioner note has been reviewed by physician. Signing provider agrees with the documented findings, assessment, and plan of care.
[2017-11-04] MEDS ORDERED: MORPHINE ORAL SOLN 10 MG/5 ML CUP PO PRN (14:43)
[2017-11-04] MEDS: HYDROcodone/APAP 5-325MG 1 EACH TAB PO PRN (16:46)
--- NOTE | 2017-11-04 20:11 | PN ---
PROGRESS NOTE DATE OF SERVICE: 11/04/2017 REASON FOR FOLLOWUP: Abdominal abscess from ruptured appendicitis. INTERVAL HISTORY: The patient did have a fever last night of 101.6; afebrile since then. He has been breathing comfortably. Denies having any chest pain, shortness of breath or cough. Abdominal pain has improved. No nausea, vomiting or any diarrhea. PHYSICAL EXAMINATION: Blood pressure 144/85 with a pulse of 89, temperature 98.6. He is 92% on room air. General description is a middle-aged male lying in bed in no distress. RESPIRATORY SYSTEM: Unlabored breathing. Clear to auscultation anteriorly. HEART: S1, S2. Regular rate and rhythm. ABDOMEN: Soft. Slightly distended. No guarding or rigidity. LABS: Hemoglobin is 11.8, white count of 18.7, BUN of 10, creatinine 0.89. The repeat abdominal cultures are currently pending. DIAGNOSTIC IMPRESSION AND PLAN: Patient with secondary peritonitis, abdominal abscess from ruptured appendicitis, status post laparoscopic washout and drainage of this abscess. Culture has been obtained which is currently pending. He did have a new fever, for which blood culture has been obtained. Antibiotic will be adjusted to Zosyn. Continue the oral Flagyl, adjusting it further on the basis of repeat culture to finalize. Continue with supportive care. MMODL / IJN: [id number] /
--- NOTE | 2017-11-04 20:49 | P.PN ---
Subjective Progress Note Date: 11/04/17 Pt seen and examined at bedside. Doing well. Had a febrile episode overnight but feeling better now. Has had flatus. States he is hungry. Objective - Vital Signs Vital signs: Vital Signs Temp 98 F 11/04/17 20:00 Pulse 76 11/04/17 20:00 Resp 18 11/04/17 20:00 BP 110/74 11/04/17 20:00 Pulse Ox 94 L 11/04/17 20:00 Intake & Output 11/04/17 11/04/17 11/05/17 06:59 18:59 06:59 Intake Total 800 Output Total 200 325 Balance -200 475 Intake: Intake, IV Titration 800 Amount Sodium Chloride 0.9% 1, 800 000 ml @ 100 mls/hr IV . Q10H [facility] Rx#:[id number] Output: Drainage 25 Abdomen 25 Urine 200 300 Other: Voiding Method Urinal Urinal # Voids 1 1 - Constitutional General appearance: Present: cooperative - Neck Neck: Present: normal ROM - Respiratory Details: no difficulty with respiration - Gastrointestinal Gastrointestinal Comment(s): soft, appropriate tenderness, nondistended, no rebound, no guarding, SHIRA drain with serosang output - Psychiatric Psychiatric: Present: A&O x's 3 - Labs CBC & Chem 7: 11/04/17 06:45 11/04/17 06:45 Labs: Abnormal Lab Results - Last 24 Hours (Table) 11/04/17 11/04/17 Range/Units 06:45 06:45 WBC 18.7 H (3.8-10.6) k/uL RBC 4.09 L (4.30-5.90) m/uL Hgb 11.8 L (13.0-17.5) gm/dL Hct 35.1 L (39.0-53.0) % Neutrophils # 16.3 H (1.3-7.7) k/uL Sodium 136 L (137-145) mmol/L Calcium 7.9 L (8.4-10.2) mg/dL Microbiology - Last 24 Hours (Table) 11/03/17 15:25 Gram Stain - Preliminary Incision Wound Culture - Preliminary 11/03/17 15:25 Anaerobic Culture - Preliminary Incision Assessment and Plan (1) Acute appendicitis Narrative/Plan: Laparoscopic appendectomy converted to open appendectomy POD #1 Lap Washout of intra-abdominal washout - Continue antibiotics per infectious disease. I did discuss the case with infectious disease today. Will evaluate wound cultures that were taken in OR - Advance to soft diet - Persistent tachycardia improved after evaluation by cardiology, further resuscitation was provided along with beta ana - Patient is using his incentive spirometry and ambulating - Continue DVT prophylaxis with subcutaneous heparin - Increase activity - Pain control - Continue SHIRA - Prognosis guarded - Discharge planning Current Visit: Yes Status: Acute Code(s): K35.80 - UNSPECIFIED ACUTE APPENDICITIS SNOMED Code(s): 23159999
[2017-11-05] MEDS: PIPERACILLIN-TAZOBACTAM 3.375 GM in DEXTROSE/WATER 1 50ML.BAG IVPB SCH ×3 (00:49→16:10)
[2017-11-05] MEDS: HEPARIN SODIUM,PORCINE 5,000 UNIT/ML 1 ML VIAL SQ SCH ×3 (00:50→15:13)
[2017-11-05] MEDS: SODIUM CHLORIDE 0.9% 1,000 ML IV SCH ×3 (06:56→15:12)
[2017-11-05 08:02] LABS: Basophils % (A) 0 %; Eosinophils # (A) 0.1 k/uL (0-0.7); Eosinophils % (A) 1 %; HCT 34.1 % (39.0-53.0); HGB 11.4 gm/dL (13.0-17.5); Lymphocytes # (A) 1.1 k/uL (1.0-4.8); Lymphocytes % (A) 8 %; MCH 28.5 pg (25.0-35.0); MCHC 33.4 g/dL (31.0-37.0); MCV 85.2 fL (80.0-100.0); Monocytes # (A) 0.5 k/uL (0-1.0); Monocytes % (A) 3 %; Neutrophils # (A) 12.2 k/uL (1.3-7.7); Neutrophils % (A) 86 %; Platelet Count 343 k/uL (150-450); RDW 12.9 % (11.5-15.5); WBC 14.2 k/uL (3.8-10.6)
[2017-11-05 08:33] LABS: Anion Gap 9 mmol/L; Blood Urea Nitrogen 10 mg/dL (9-20); Calcium 7.8 mg/dL (8.4-10.2); Carbon Dioxide 26 mmol/L (22-30); Chloride 98 mmol/L (98-107); Glucose 97 mg/dL (74-99); Sodium 133 mmol/L (137-145)
--- NOTE | 2017-11-05 09:08 | CDI ---
Last Revision, July 2017 Documentation Clarification Form Date: 11/05/2017 From: Kaela De La GarzaOdonnellSARATH terry, CCDS Admit Date: 10/25/2017 10:06:00 AM Patient Name: Dallas Mcclure Visit Number: [id number] Discharge Date: ATTENTION: The Clinical Documentation Specialists (CDI) and [facility] Coding Staff appreciate your assistance in clarifying documentation. Please respond to the clarification below the line at the bottom and electronically sign. The CDI & [facility] Coding staff will review the response and follow-up if needed. Please note: Queries are made part of the Legal Health Record. If you have any questions, please contact the author of this message via ITS. Dr. Jw Chanel: Urinary retention is documented in the Urology Consult. Patients Admitting Diagnosis: Presented to with an acute perforated appendicitis & intra-abdominal peritonitis. Post-Operative Diagnosis: Same. Procedure performed: Lap Appendectomy converted to Open Appendectomy History/Risk Factors: Unremarkable urologic history, Hypertension, Smoker. Clinical Indicators: Jaramillo cath was placed w/difficulty, the catheter was not draining properly, removed, unable to void since removal. Treatment: Jaramillo catheter inserted into the bladder. In order to accurately reflect this patients severity of illness, please clarify if the post-operative diagnosis of urinary retention is: An expected post-procedural or post-surgical condition Integral to the procedure Inherent to the procedure An unexpected post-procedural or post-surgical condition related to surgical care Other, please specify Unable to determine Please continue to document in your progress notes and discharge summary in order to capture severity of illness and risk of mortality. Include clinical findings that support your diagnosis. MTDD
[2017-11-05] MEDS: POTASSIUM CHLORIDE ER 10 MEQ TAB.ER.PRT PO SCH (09:24)
[2017-11-05] MEDS: METOPROLOL TARTRATE 25 MG TAB PO SCH ×3 (09:24→22:49)
[2017-11-05] MEDS: PANTOPRAZOLE 40 MG TABLET PO SCH (09:25)
[2017-11-05] MEDS: HYDROcodone/APAP 5-325MG 1 EACH TAB PO PRN ×2 (09:25→15:11)
[2017-11-05] MEDS: LISINOPRIL 10 MG TAB PO SCH (09:25)
[2017-11-05] MEDS: metroNIDAZOLE 500 MG TAB PO SCH ×3 (09:25→22:13)
[2017-11-05] MEDS: FUROSEMIDE 40 MG TAB PO SCH (09:25)
--- NOTE | 2017-11-05 11:50 | P.PN ---
Subjective Progress Note Date: 11/05/17 10/26/2017 57-year-old male who presented to the emergency room on 10/24/2017 with a chief complaint of abdominal pain. The patient was found to have appendicitis and underwent laparoscopic appendectomy converted to open appendectomy with Dr. Mendez on 10/24/2017. His appendix was found to be perforated and was found to have intra-abdominal peritonitis. Dr. Ma was consulted for medical management. The patient is seen in evaluated sitting up in the chair. Dr. Whiteside is on consult for infectious disease. He is currently receiving Zosyn every 8 hours IV. Preliminary cultures from the patient's appendix are positive for gram-negative bacilli. The patient had an indwelling urinary catheter placed for surgery which was found to be not properly draining. The patient was unable to void since that time. Urology was consulted. A new indwelling coud catheter was placed per urology. Per nursing, the patient had multiple blood clots present. The patient has been tachycardic with a rate in the 110-120s. Cardiology was consulted today and an echocardiogram has been ordered. The patient was febrile overnight with a temperature of 100.6F. This morning he is afebrile with a temperature of 98.8. He is on 4 L nasal cannula with oxygen saturations greater than 92%. The patient had an NG tube to low intermittent suction which has since been discontinued this morning. SHIRA drain is in place with serosanguineous drainage. The patient denies chest pain or pressure. Denies shortness of breath. Denies nausea or vomiting. Denies flatus. No bowel movement. Denies palpitations. States his pain is tolerable at this time. 10/27/2017 Patient seen and examined at the bedside on rounds with Dr. Ma. Patient is awake and alert sitting up in the bed. Patient is tolerating a clear liquid diet. Patient denies nausea or vomiting. Patient states his pain is tolerable at this time. Indwelling urinary catheter remains intact with claudia urine noted. Patient was febrile throughout the night with a temperature of 101.7. He was started on metoprolol per cardiology for tachycardia. Patient denies any concerns or complaints at this time. 10/28/2017 Patient seen and examined at the bedside on rounds with Dr. Ma. Patient states his pain is tolerable at this time. Patient states he has been having multiple bowel movements. C. diff was negative. SHIRA drain remains intact with serous drainage. Indwelling urinary catheter is present with claudia colored urine. Patient's potassium is low this morning at 2.8. Potassium protocol initiated. Patient's tachycardia has improved with the initiation of metoprolol per cardiology. Patient has been afebrile for the last 24 hours. WBC is up to 14.7 from 12.5. Infectious disease is on consult. Yesterday, Dr. Whiteside recommended continuing Unasyn for at least another 24-48 hours. Culture from appendix reveals Escherichia coli and Klebsiella pneumoniae, both susceptible to Unasyn. 10/29/2017 Patient seen and examined at the bedside on rounds with Dr. Ma. Patient is awake and alert. Sitting up in the chair. Patient states his loose stools are resolving. Denies abdominal pain. Denies nausea or vomiting. Tolerating full liquid diet. SHIRA with minimal serous drainage. Jaramillo remains intact. WBC is down to 13.3 today. 10/30/2017 Patient seen and examined. He is sitting up in the chair. Urinary catheter was discontinued yesterday and patient states he has been voiding without difficulty. SHIRA drain remains intact with minimal serous fluid. Case discussed with Dr. Mendez. CT of the abdomen with oral contrast to be completed. WBC increased this AM to 16.0 Potassium is 4.0. Patient states his stools are still loose but improving from the diarrhea he was experiencing. 10/31/2017-Notes per Dr. Ma 11/01/2017-Notes per Dr. Ma 11/02/2017 Patient seen and examined this morning. Patient is sitting up in the chair. SHIRA drain remains intact with serous drainage. Patient complains of mild generalized abdominal pain. Patient states he continues to have loose bowel movements. Patient reports he has been ambulating in the room and hallway. Voiding without difficulty per patient. WBC increased from 15.4-18.5. Patient underwent CT of the abdomen and pelvis on 10/30/2017 which revealed a postoperative seroma versus developing abscess. Patient is scheduled for CT- guided drainage tube insertion today. 11/03/2017 Patient seen and examined at the bedside. Patient was scheduled for CT-guided drainage tube insertion yesterday but the procedure was canceled as there was not thought to be an adequate amount of fluid collection to be drained. The patient is scheduled for diagnostic laparoscopy with abdominal washout today with Dr. Mendez. WBC this morning is 14.2, down from 18.5. Patient remains on Unasyn and Flagyl per infectious disease. He is afebrile. He remains hemodynamically stable. 11/04/2017 Patient seen and examined at the bedside. patient underwent diagnostic laparoscopy, intra-abdominal abscess washout, and incisional hernia repair yesterday by Dr. Mendez. SHIRA drain was removed in OR. New SHIRA drain and prevera wound vac placed. Wound cultures are currently pending. WBC this morning is 18.7 , up from 14.2. Hemoglobin is 11.9. infectious disease remains on consult. Patient is currently on Zosyn every 8 hours IV and Flagyl. Patient did have a fever last night of 101.6. This morning he is afebrile. Patient reports mild abdominal pain. Patient denies nausea or vomiting. 11/05/2017 Patient sitting up in the chair. Awake and alert. Reports mild abdominal pain. SHIRA drain and prevera wound vac remain in place. Patient denies nausea or vomiting. Reports bowel movement this morning and no difficulties with urination. Patient has been afebrile for last 24 hours. Remains on Zosyn and Flagyl per infectious disease. Preliminary wound cultures from abdominal abscess are positive for gram negative bacilli. Patient states he is going to subacute rehab at the time of discharge and was told he would require IV antibiotics. Objective - Vital Signs Vital signs: Vital Signs Temp 98.2 F 11/05/17 07:00 Pulse 78 11/05/17 07:00 Resp 16 11/05/17 07:00 BP 134/81 11/05/17 07:00 Pulse Ox 95 11/05/17 07:00 Intake & Output 11/04/17 11/05/17 11/05/17 18:59 06:59 18:59 Intake Total 800 3260 Output Total 325 2 Balance 475 3258 Weight 113.398 kg Intake: Intake, IV Titration 800 1900 Amount ACETAMINOPHEN IV (For NPO 100 ) 1,000 mg In Empty Bag 1 bag @ 400 mls/hr IVPB Q6HR PRN Rx#:[id number] Ampicillin-Sulbactam 3 gm 100 In Sodium Chloride 0.9% 100 ml @ 100 mls/hr IVPB Q6HR JUVENCIO Rx#:[id number] Piperacillin-Tazobactam 3 100 .375 gm In Dextrose/Water 1 50ml.bag @ 12.5 mls/hr IVPB Q8HR JUVENCIO Rx#: [id number] Sodium Chloride 0.9% 1, 800 1600 000 ml @ 100 mls/hr IV . Q10H JUVENCIO Rx#:[id number] Oral 1360 Output: Drainage 25 Abdomen 25 Urine 300 Stool 2 Other: Voiding Method Urinal Urinal Toilet Urinal # Voids 1 3 # Bowel Movements 1 - Exam GENERAL: This is a 57-year-old male in no apparent distress at the time of examination. Pleasant and cooperative. HEENT: Head is atraumatic, normocephalic. Pupils are equal, round, and reactive to light. Sclerae anicteric. Conjunctivae are clear. Mucus membranes of the mouth are moist. Neck is supple. RESPIRATORY: Clear to ausculation. No wheezes, rales, or rhonchi. No use of accessory muscles. Patient maintaining oxygen saturation greater than 92%. No chest wall tenderness is noted on palpation or with deep breathing. CARDIOVASCULAR: Regular rate and rhythm. S1 and S2 noted. No JVD noted. No S3 or S4 noted. GASTROINTESTINAL: SHIRA drain noted with serosanguineous drainage. Prevera wound vac system in place to right lower quadrant with no output noted. Obese. No distention noted. Abdomen soft and round. Bowel sounds auscultated x 4 quadrants. Mild pain and tenderness noted upon palpation. INTEGUMENTARY: Abdominal dressing CDI. No cyanosis. No jaundice. No rashes noted. No cellulitis noted. EXTREMITIES: 2+ peripheral pulses. Trace bilateral lower extremity edema. No calf tenderness noted. NEUROLOGIC: Cranial nerves II-XII intact. PSYCHIATRIC: Awake, alert, and oriented X 3. Appropriate affect. Intact judgement and insight. - Labs CBC & Chem 7: 11/05/17 07:20 11/05/17 07:20 Labs: Abnormal Lab Results - Last 24 Hours (Table) 11/05/17 11/05/17 Range/Units 07:20 07:20 WBC 14.2 H (3.8-10.6) k/uL RBC 4.00 L (4.30-5.90) m/uL Hgb 11.4 L (13.0-17.5) gm/dL Hct 34.1 L (39.0-53.0) % Neutrophils # 12.2 H (1.3-7.7) k/uL Sodium 133 L (137-145) mmol/L Calcium 7.8 L (8.4-10.2) mg/dL Microbiology - Last 24 Hours (Table) 11/04/17 09:33 Blood Culture - Preliminary Blood No Growth after 24 hours 11/04/17 09:12 Blood Culture - Preliminary Blood No Growth after 24 hours 11/03/17 15:25 Gram Stain - Preliminary Incision Wound Culture - Preliminary Gram Neg Bacilli Assessment and Plan Plan: ASSESSMENT: Laparoscopic appendectomy converted to open appendectomy secondary to perforated appendix with intra-abdominal stool, POD #12 S/P Diagnostic laparoscopy, intra-abdominal abscess washout, and incisional hernia repair, POD #2 Sepsis with elevated lactic acid, leukocytosis, and tachycardia, secondary to above Essential hypertension Tachycardia, improved with addition of beta-ana, cardiology consulted Urinary retention with blood clots noted, s/p insertion of indwelling urinary catheter per urology which has since been discontinued Nicotine dependence, patient is a current everyday cigarette smoker Obesity: BMI 38.0 PLAN: Continue postoperative care per Dr. Mendez Continue metoprolol per cardiology Activity as tolerated Encourage ambulation in the hallways Incentive spirometer 10 times an hour while awake Pain control Infectious disease on consult. Continue Zosyn and Flagyl Await final results of wound cultures Home meds as appropriate Monitor labs Smoking cessation recommended GI prophylaxis: Protonix 40 mg PO Daily DVT prophylaxis: Heparin 5000 units subcu every 8 hours Monitor vital signs and address as appropriate Further recommendations pending patient's course Discharge planning: Patient states he is going to subacute rehab at the time of discharge Nurse practitioner note has been reviewed by physician. Signing provider agrees with the documented findings, assessment, and plan of care.
[2017-11-06] MEDS: PIPERACILLIN-TAZOBACTAM 3.375 GM in DEXTROSE/WATER 1 50ML.BAG IVPB SCH ×2 (00:58→08:41)
[2017-11-06] MEDS: HEPARIN SODIUM,PORCINE 5,000 UNIT/ML 1 ML VIAL SQ SCH ×3 (00:58→16:02)
[2017-11-06] MEDS: SODIUM CHLORIDE 0.9% 1,000 ML IV SCH ×2 (06:00→08:44)
[2017-11-06 07:44] LABS: Basophils % (A) 0 %; Eosinophils # (A) 0.1 k/uL (0-0.7); Eosinophils % (A) 1 %; HCT 34.4 % (39.0-53.0); HGB 10.9 gm/dL (13.0-17.5); Lymphocytes # (A) 1.5 k/uL (1.0-4.8); Lymphocytes % (A) 11 %; MCH 27.5 pg (25.0-35.0); MCHC 31.8 g/dL (31.0-37.0); MCV 86.5 fL (80.0-100.0); Mean Platelet Volume 8.5; Monocytes # (A) 0.6 k/uL (0-1.0); Monocytes % (A) 4 %; Neutrophils % (A) 83 %; Platelet Count 321 k/uL (150-450); RBC 3.97 m/uL (4.30-5.90); RDW 13.4 % (11.5-15.5); WBC 13.3 k/uL (3.8-10.6)
[2017-11-06 07:55] LABS: Anion Gap 10 mmol/L; Blood Urea Nitrogen 9 mg/dL (9-20); Calcium 7.9 mg/dL (8.4-10.2); Carbon Dioxide 27 mmol/L (22-30); Chloride 101 mmol/L (98-107); Glucose 86 mg/dL (74-99); Potassium 4.4 mmol/L (3.5-5.1); Sodium 138 mmol/L (137-145)
--- NOTE | 2017-11-06 07:58 | PN ---
PROGRESS NOTE DATE OF SERVICE: 11/05/2017 REASON FOR FOLLOWUP: Abdominal abscess, post appendectomy. INTERVAL HISTORY: The patient is afebrile, has been breathing comfortably. Denies having any chest pain, shortness of breath, cough. Currently tolerating clear liquid diet. No nausea, vomiting and did have a bowel movement. PHYSICAL EXAMINATION: Blood pressure is 125/74 with a pulse of 89, temperature of 98.5. He is 93% on room air. General description is a middle-aged male up in the chair in no distress. RESPIRATORY SYSTEM: Unlabored breathing, clear to auscultation anteriorly. HEART: S1, S2. Regular rate and rhythm. ABDOMEN: Distended, minimal amount of serosanguineous secretion. LABS: Hemoglobin is 11.4, white count 14.2 with a BUN of 10, creatinine 0.81. The oral culture did show E coli sensitive pathogen. Blood cultures have been negative. DIAGNOSTIC IMPRESSION AND PLAN: Patient with abdominal sepsis in a patient who did have a perforated appendicitis, status post appendectomy followed by a repeat surgery for drainage of the abscess. In view of his complicated history, would recommend getting a PICC line with outpatient IV antibiotic therapy in the form of Rocephin in addition to the oral Flagyl with close outpatient followup. MMODL / IJN: [id number] /
[2017-11-06] MEDS: HYDROcodone/APAP 5-325MG 1 EACH TAB PO PRN (08:42)
--- NOTE | 2017-11-06 08:42 | P.PN ---
Subjective Progress Note Date: 11/06/17 10/26/2017 57-year-old male who presented to the emergency room on 10/24/2017 with a chief complaint of abdominal pain. The patient was found to have appendicitis and underwent laparoscopic appendectomy converted to open appendectomy with Dr. Mendez on 10/24/2017. His appendix was found to be perforated and was found to have intra-abdominal peritonitis. Dr. Ma was consulted for medical management. The patient is seen in evaluated sitting up in the chair. Dr. Whiteside is on consult for infectious disease. He is currently receiving Zosyn every 8 hours IV. Preliminary cultures from the patient's appendix are positive for gram-negative bacilli. The patient had an indwelling urinary catheter placed for surgery which was found to be not properly draining. The patient was unable to void since that time. Urology was consulted. A new indwelling coud catheter was placed per urology. Per nursing, the patient had multiple blood clots present. The patient has been tachycardic with a rate in the 110-120s. Cardiology was consulted today and an echocardiogram has been ordered. The patient was febrile overnight with a temperature of 100.6F. This morning he is afebrile with a temperature of 98.8. He is on 4 L nasal cannula with oxygen saturations greater than 92%. The patient had an NG tube to low intermittent suction which has since been discontinued this morning. SHIRA drain is in place with serosanguineous drainage. The patient denies chest pain or pressure. Denies shortness of breath. Denies nausea or vomiting. Denies flatus. No bowel movement. Denies palpitations. States his pain is tolerable at this time. 10/27/2017 Patient seen and examined at the bedside on rounds with Dr. Ma. Patient is awake and alert sitting up in the bed. Patient is tolerating a clear liquid diet. Patient denies nausea or vomiting. Patient states his pain is tolerable at this time. Indwelling urinary catheter remains intact with claudia urine noted. Patient was febrile throughout the night with a temperature of 101.7. He was started on metoprolol per cardiology for tachycardia. Patient denies any concerns or complaints at this time. 10/28/2017 Patient seen and examined at the bedside on rounds with Dr. Ma. Patient states his pain is tolerable at this time. Patient states he has been having multiple bowel movements. C. diff was negative. SHIRA drain remains intact with serous drainage. Indwelling urinary catheter is present with claudia colored urine. Patient's potassium is low this morning at 2.8. Potassium protocol initiated. Patient's tachycardia has improved with the initiation of metoprolol per cardiology. Patient has been afebrile for the last 24 hours. WBC is up to 14.7 from 12.5. Infectious disease is on consult. Yesterday, Dr. Whiteside recommended continuing Unasyn for at least another 24-48 hours. Culture from appendix reveals Escherichia coli and Klebsiella pneumoniae, both susceptible to Unasyn. 10/29/2017 Patient seen and examined at the bedside on rounds with Dr. Ma. Patient is awake and alert. Sitting up in the chair. Patient states his loose stools are resolving. Denies abdominal pain. Denies nausea or vomiting. Tolerating full liquid diet. SHIRA with minimal serous drainage. Jaramillo remains intact. WBC is down to 13.3 today. 10/30/2017 Patient seen and examined. He is sitting up in the chair. Urinary catheter was discontinued yesterday and patient states he has been voiding without difficulty. SHIRA drain remains intact with minimal serous fluid. Case discussed with Dr. Mendez. CT of the abdomen with oral contrast to be completed. WBC increased this AM to 16.0 Potassium is 4.0. Patient states his stools are still loose but improving from the diarrhea he was experiencing. 10/31/2017-Notes per Dr. Ma 11/01/2017-Notes per Dr. Ma 11/02/2017 Patient seen and examined this morning. Patient is sitting up in the chair. SHIRA drain remains intact with serous drainage. Patient complains of mild generalized abdominal pain. Patient states he continues to have loose bowel movements. Patient reports he has been ambulating in the room and hallway. Voiding without difficulty per patient. WBC increased from 15.4-18.5. Patient underwent CT of the abdomen and pelvis on 10/30/2017 which revealed a postoperative seroma versus developing abscess. Patient is scheduled for CT- guided drainage tube insertion today. 11/03/2017 Patient seen and examined at the bedside. Patient was scheduled for CT-guided drainage tube insertion yesterday but the procedure was canceled as there was not thought to be an adequate amount of fluid collection to be drained. The patient is scheduled for diagnostic laparoscopy with abdominal washout today with Dr. Mendez. WBC this morning is 14.2, down from 18.5. Patient remains on Unasyn and Flagyl per infectious disease. He is afebrile. He remains hemodynamically stable. 11/04/2017 Patient seen and examined at the bedside. patient underwent diagnostic laparoscopy, intra-abdominal abscess washout, and incisional hernia repair yesterday by Dr. Mendez. SHIRA drain was removed in OR. New SHIRA drain and prevera wound vac placed. Wound cultures are currently pending. WBC this morning is 18.7 , up from 14.2. Hemoglobin is 11.9. infectious disease remains on consult. Patient is currently on Zosyn every 8 hours IV and Flagyl. Patient did have a fever last night of 101.6. This morning he is afebrile. Patient reports mild abdominal pain. Patient denies nausea or vomiting. 11/05/2017 Patient sitting up in the chair. Awake and alert. Reports mild abdominal pain. SHIRA drain and prevera wound vac remain in place. Patient denies nausea or vomiting. Reports bowel movement this morning and no difficulties with urination. Patient has been afebrile for last 24 hours. Remains on Zosyn and Flagyl per infectious disease. Preliminary wound cultures from abdominal abscess are positive for gram negative bacilli. Patient states he is going to subacute rehab at the time of discharge and was told he would require IV antibiotics. 11/06/2017 Patient seen and examined this morning. Patient is sitting up in the chair eating breakfast. States appetite is good. denies nausea or vomiting. WBC this morning is 13.3. Hemoglobin is 10.9. Patient remains afebrile. Blood pressure is slightly elevated this morning at 151/83. Blood pressures have not been consistently elevated. Patient does report some abdominal pain and back pain from lying in the hospital bed which may be attributing to the hypertension this morning. Cultures are positive for E. Coli. Infectious disease remains on consult. Patient is scheduled for PICC line insertion today and will require IV antibiotics at the time of discharge in the form of Rocephin. Objective - Vital Signs Vital signs: Vital Signs Temp 98.5 F 11/05/17 19:20 Pulse 89 11/05/17 21:00 Resp 16 11/05/17 19:20 BP 125/74 11/05/17 19:20 Pulse Ox 94 L 11/06/17 07:35 Intake & Output 11/05/17 11/06/17 11/06/17 18:59 06:59 18:59 Output Total 20 2 Balance -20 -2 Weight 113.398 kg Output: Drainage 20 Abdomen 20 Stool 2 Other: Voiding Method Toilet Toilet Urinal Urinal # Voids 2 3 # Bowel Movements 1 - Exam GENERAL: This is a 57-year-old male in no apparent distress at the time of examination. Pleasant and cooperative. HEENT: Head is atraumatic, normocephalic. Pupils are equal, round, and reactive to light. Sclerae anicteric. Conjunctivae are clear. Mucus membranes of the mouth are moist. Neck is supple. RESPIRATORY: Clear to ausculation. No wheezes, rales, or rhonchi. No use of accessory muscles. Patient maintaining oxygen saturation greater than 92%. No chest wall tenderness is noted on palpation or with deep breathing. CARDIOVASCULAR: Regular rate and rhythm. S1 and S2 noted. No JVD noted. No S3 or S4 noted. GASTROINTESTINAL: SHIRA drain noted with serosanguineous drainage. Prevera wound vac system in place to right lower quadrant with no output noted. Obese. No distention noted. Abdomen soft and round. Bowel sounds auscultated x 4 quadrants. Mild pain and tenderness noted upon palpation. INTEGUMENTARY: Abdominal dressing CDI. No cyanosis. No jaundice. No rashes noted. No cellulitis noted. EXTREMITIES: 2+ peripheral pulses. Trace bilateral lower extremity edema. No calf tenderness noted. NEUROLOGIC: Cranial nerves II-XII intact. PSYCHIATRIC: Awake, alert, and oriented X 3. Appropriate affect. Intact judgement and insight. - Labs CBC & Chem 7: 11/06/17 06:29 11/06/17 06:29 Labs: Abnormal Lab Results - Last 24 Hours (Table) 11/05/17 11/06/17 11/06/17 Range/Units 07:20 06:29 06:29 WBC 13.3 H (3.8-10.6) k/uL RBC 3.97 L (4.30-5.90) m/uL Hgb 10.9 L (13.0-17.5) gm/dL Hct 34.4 L (39.0-53.0) % Neutrophils # 11.0 H (1.3-7.7) k/uL Sodium 133 L (137-145) mmol/L Calcium 7.8 L 7.9 L (8.4-10.2) mg/dL Microbiology - Last 24 Hours (Table) 11/03/17 15:25 Anaerobic Culture - Preliminary Incision 11/03/17 15:25 Gram Stain - Final Incision Wound Culture - Final Escherichia coli 11/04/17 09:33 Blood Culture - Preliminary Blood No Growth after 24 hours 11/04/17 09:12 Blood Culture - Preliminary Blood No Growth after 24 hours Assessment and Plan Plan: ASSESSMENT: Laparoscopic appendectomy converted to open appendectomy secondary to perforated appendix with intra-abdominal stool, POD #13 S/P Diagnostic laparoscopy, intra-abdominal abscess washout, and incisional hernia repair, POD #3 Sepsis with elevated lactic acid, leukocytosis, and tachycardia, secondary to above Essential hypertension Tachycardia, improved with addition of beta-ana, cardiology consulted Urinary retention with blood clots noted, s/p insertion of indwelling urinary catheter per urology which has since been discontinued Nicotine dependence, patient is a current everyday cigarette smoker Obesity: BMI 38.0 PLAN: Continue postoperative care per Dr. Mendez Continue metoprolol per cardiology Activity as tolerated Encourage ambulation in the hallways Incentive spirometer 10 times an hour while awake Pain control Infectious disease on consult. Continue Zosyn and Flagyl Patient scheduled for PICC line insertion today Home meds as appropriate Monitor labs Smoking cessation recommended GI prophylaxis: Protonix 40 mg PO Daily DVT prophylaxis: Heparin 5000 units subcu every 8 hours Monitor vital signs and address as appropriate Further recommendations pending patient's course Discharge planning: Patient states he is going to subacute rehab at the time of discharge Nurse practitioner note has been reviewed by physician. Signing provider agrees with the documented findings, assessment, and plan of care.
[2017-11-06] MEDS: metroNIDAZOLE 500 MG TAB PO SCH ×2 (08:43→16:01)
[2017-11-06] MEDS: POTASSIUM CHLORIDE ER 10 MEQ TAB.ER.PRT PO SCH (08:43)
[2017-11-06] MEDS: LISINOPRIL 10 MG TAB PO SCH (08:43)
[2017-11-06] MEDS: METOPROLOL TARTRATE 25 MG TAB PO SCH ×2 (08:43→16:01)
[2017-11-06] MEDS: FUROSEMIDE 40 MG TAB PO SCH (08:43)
[2017-11-06] MEDS: PANTOPRAZOLE 40 MG TABLET PO SCH (08:43)
[2017-11-06] MEDS ORDERED: LIDOCAINE 2% INJ 20 MG/ML SQ ONE (10:57)
--- NOTE | 2017-11-06 14:14 | P.DS ---
Providers Date of admission: 10/25/17 10:06 Expected date of discharge: 11/06/17 Attending physician: Sriram Santiago DO Consults: 10/24/17 21:03 Consult Physician Routine Consulting Provider: Kody Mckenna Jr Consult Reason/Comments: Pt known to you, acute appendicitis Do you want consulting provider notified?: Yes 10/25/17 10:29 Consult Physician Routine Consulting Provider: Loreto Whiteside Consult Reason/Comments: perforated appendicits Do you want consulting provider notified?: Yes 10/25/17 14:56 Consult Physician Routine Consulting Provider: Jw Chanel Consult Reason/Comments: urinary retention Do you want consulting provider notified?: Yes 10/26/17 08:42 Consult Physician Urgent Consulting Provider: Niles Celaya Consult Reason/Comments: Sinus tachycardia Do you want consulting provider notified?: Yes Primary care physician: [facility] Course: 57-year-old male initially presented to the emergency room with a chief complaint of right lower quadrant abdominal pain Decrease appetite. Patient stated the pain became symptomatic onset 24 hours prior to admission. Patient stated never had this type of pain before. Admitted to Dr. Santiago service. On October 24 underwent a laparoscopic appendectomy converted to an open appendectomy for perforated appendicitis purulent with abdominal peritonitis immediately postop was placed on bowel rest nasogastric tube in place. Patient was treated with antibiotics with infectious disease input additionally a neurology consultation was requested for urinary retention and difficult catheterization. This wasn't unexpected postsurgical condition related to surgical care. Patient was seen by Dr. chanel. Jaramillo catheter was able to be removed no worse no further episodes of difficulty in urinating November 03 patient underwent a diagnostic laparoscopy due to increased leukocytosis and febrile episodes. CAT scan abdomen and pelvis did show intra- abdominal abscess. not able to be drained by interventional radiology. Secondary to these findings the plan was to proceed with a diagnostic laparoscopic with an abscess washout as mentioned this was done on November 03. On November 06 white count was down to 13.3 remained afebrile with a PICC line placed for IV antibiotic therapy in the form of Rocephin per recommendations of infectious disease Patient was felt to be appropriate candidate to be transferred to an ECF facility for IV antibiotic therapy. At the time of discharge a SHIRA drain was in place scant amount of serous drainage noted a prevera wound system in place right lower quadrant stefan to the surgical incision sites dressings were dry Discharge diagnosis impression Present on admission right lower quadrant abdominal pain onset 24 hours prior suspect due to acute perforated appendicitis Laparoscopic appendectomy converted to open appendectomy secondary to perforated appendix with intra-abdominal stool, done on October 24 S/P Diagnostic laparoscopy, intra-abdominal abscess washout, and incisional hernia repair done on November 03 Present on admission Sepsis with elevated lactic acid, leukocytosis, and tachycardia, secondary to above Essential hypertension Tachycardia, improved with addition of beta-ana, cardiology consulted Urinary retention with blood clots noted, s/p insertion of indwelling urinary catheter per urology which has since been discontinued Nicotine dependence, patient is a current everyday cigarette smoker Morbid Obesity: BMI 38.0 Urinary retention and difficult catheterization isn't unexpected postsurgical condition related to surgical care Patient Condition at Discharge: Stable Plan - Discharge Summary Discharge Rx Participant: Yes New Discharge Prescriptions: New cefTRIAXone [Rocephin] 2,000 mg IVP Q24HR #14 ml metroNIDAZOLE [Flagyl] 500 mg PO Q8HR #42 tab cefTRIAXone [Rocephin] 2,000 mg IVP Q24HR syringe Lisinopril [Zestril] 10 mg PO DAILY tab Metoprolol Tartrate [Lopressor] 25 mg PO TID #90 tab Heparin Sodium,Porcine [Heparin Sodium] 5,000 unit SQ Q8HR #0 vial HYDROcodone/APAP 5-325MG [[place] 5-325] 1 each PO Q6HR PRN #30 tab PRN Reason: Pain Pantoprazole [Protonix] 40 mg PO DAILY tablet.dr Continue Lisinopril [Prinivil] 10 mg PO DAILY Potassium Chloride [K-Tab ER] 10 meq PO DAILY Furosemide [Lasix] 40 mg PO DAILY Discontinued Ibuprofen [Motrin] 800 mg PO TID PRN PRN Reason: Pain Discharge Medication List Furosemide [Lasix] 40 mg PO DAILY 10/24/17 [History] Lisinopril [Prinivil] 10 mg PO DAILY 10/24/17 [History] Potassium Chloride [K-Tab ER] 10 meq PO DAILY 10/24/17 [History] HYDROcodone/APAP 5-325MG [[place] 5-325] 1 each PO Q6HR PRN #30 tab 11/06/17 [Rx] Heparin Sodium,Porcine [Heparin Sodium] 5,000 unit SQ Q8HR #0 vial 03/30/18 [Rx] Lisinopril [Zestril] 10 mg PO DAILY tab 11/06/17 [Rx] Metoprolol Tartrate [Lopressor] 25 mg PO TID #90 tab 11/06/17 [Rx] Pantoprazole [Protonix] 40 mg PO DAILY tablet. 11/06/17 [Rx] cefTRIAXone [Rocephin] 2,000 mg IVP Q24HR syringe 11/06/17 [Rx] cefTRIAXone [Rocephin] 2,000 mg IVP Q24HR #14 ml 11/06/17 [Rx] metroNIDAZOLE [Flagyl] 500 mg PO Q8HR #42 tab 11/06/17 [Rx] Follow up Appointment(s)/Referral(s): [facility], [NON-STAFF] - Kody Mckenna Jr, DO [Primary Care Provider] - 1-2 days Sriram Santiago DO [Doctor of Osteopathic Medicine] - 1 Week Loreto Whiteside MD [STAFF PHYSICIAN] - 1 Week Ambulatory/Diagnostic Orders: Basic Metabolic Panel [LAB.AMB] Time Frame: 2 Weeks, Location: Determined By Patient C Reactive Protein [LAB.AMB] Location: Determined By Patient Complete Blood Count w/diff [LAB.AMB] Location: Determined By Patient Activity/Diet/Wound Care/Special Instructions: [facility] - [phone] - will deliver to the bedside before discharge Care Plan Goals (MU): No tub bath for six weeks. Shower daily. Do not soak surgical incision sites No lifting over 10 pounds for the next 6 weeks. Monitor SHIRA drain and record. May use ice packs to surgical site. No driving while taking narcotic for pain. for constipation may use Colace if needed To not remove prevera wound system will be removed in office visit with dr santiago make follow up appt on thursday with dr santiago to be seen next week low fiber diet Discharge Disposition: TRANSFER TO SNF/ECF
--- NOTE | 2017-11-06 14:16 | IR ---
EXAMINATION TYPE: IR cvc insert >=5 years DATE OF EXAM: 11/06/2017 COMPARISON: NONE CLINICAL HISTORY: Infection Needs long-term intravenous access for antibiotics. PROCEDURE: After informed consent, the skin overlying the left basilic vein was localized with ultrasound and no pau to be compressible and patent. An ultrasound image was obtained and submitted on the patient's c monae. The overlying skin was prepped and draped and Lidocaine was used for local anesthesia. A skin shreya was made with a scalpel. Access was gained to the vein under ultrasound guidance with a 21 gau ge needle and a 0.018 inch wire was advanced. Access site was dilated with Peel-Away sheath and cath eter tailored to the appropriate length and advanced such that the distal tip is at the cavoatrial ju nction. Spot image was obtained verifying placement. Catheter was fixed to the skin and a sterile d ressing was placed following hemostasis. Catheter was aspirated and flushed with saline. Patient wa s discharged in stable condition without complication. Maximal barrier technique is utilized. Ultras ound image is documented on the chart. Ultrasound used with sterile technique. Fluoro time and fluoroscopic images submitted to document procedure: 0.7 minutes fluoroscopy time, 79 intraoperative images document the procedure. IMPRESSION: STATUS POST ULTRASOUND AND FLUOROSCOPIC GUIDED PICC LINE PLACEMENT, READY FOR USE. THIS PROCEDURE WAS PERFORMED BY THE UNDERSIGNED.
--- NOTE | 2017-11-06 14:16 | PN ---
PROGRESS NOTE DATE OF SERVICE: 11/06/2017. REASON FOR FOLLOW UP: Abdominal abscess. INTERVAL HISTORY: The patient is afebrile. He is breathing comfortably. Denies having any chest pain, abdominal pain, nausea, vomiting, or any diarrhea. EXAMINATION: Blood pressure 144/73 with a pulse of 96, temperature of 98m he is 98% on room air. General description is a middle aged male, up in the chair, in no distress. Respiratory system, unlabored breathing. Clear to auscultation anteriorly. Heart S1, S2. Regular rate and rhythm. Abdomen soft. No tenderness. LABS: White count 13.3 with a BUN of 9, creatinine 0.72. OR culture positive for E coli and . DIAGNOSTIC IMPRESSION AND PLAN: Patient with abdominal abscess from ruptured appendicitis status post appendectomy followed by portion of the abscess culture showing an E coli. Antibiotic will be adjusted to Rocephin 2 g daily along with oral Flagyl with the patient taking for another 2 weeks with close outpatient followup. Scripts were written for the patient. MMJERICAL / VIOLETTEN: [id number] /
[2017-11-06 15:53] VITALS: BP 121/71; PULSE 95; RESP 16; TEMP 98
[2017-11-06] MEDS ORDERED: cefTRIAXone IN SWFI 2,000 MG/20 ML SYRINGE IVP SCH (16:00)
== END 2017-11-06 16:30 | DRG 853 ==
LOC: EC 11:46 → 3SUR 15:38 → OBSVTOIN 10-25 10:06 → 3SUR 10-31 07:53
PROVIDERS: ADMIT Surgery; ATTEND Surgery
DX: A41.9 Sepsis, unspecified organism (principal); K35.2 Acute appendicitis with generalized peritonitis; I11.9 Hypertensive heart disease without heart failure; E66.01 Morbid (severe) obesity due to excess calories; F17.210 Nicotine dependence, cigarettes, uncomplicated; I51.7 Cardiomegaly; K43.2 Incisional hernia without obstruction or gangrene; Z53.31 Laparoscopic surgical procedure converted to open procedure; Z68.38 Body mass index [BMI] 38.0-38.9, adult; Z79.899 Other long term (current) drug therapy; Z79.1 Long term (current) use of non-steroidal anti-inflammatories (NSAID); R33.9 Retention of urine, unspecified
CPT/HCPCS: 36415; 36569; 74018; 74177; 76380; 76937; 77001; 80048; 80053; 82150; 83605; 83690; 83735; 84132; 85025; 87040; 87070; 87075; 87077; 87186; 87205; 87324; 88304; 93306; 94760; 96361; 96365; 96375; 99285

== ENCOUNTER 2017-11-17 08:14 | Inpatient (IN) | payer OTHER ==
[2017-11-17] MEDS ORDERED: SODIUM CHLORIDE 0.9% 1,000 ML IV STA (08:46)
[2017-11-17] MEDS ORDERED: RX INFO: IV CONTRAST WAS GIVEN 1 EACH MISC MISCELLANE PRN (08:46)
--- NOTE | 2017-11-17 08:52 | ED ---
General Adult HPI <Froilan Loera - Last Filed: 11/17/17 12:15> - General Source: patient, EMS, RN notes reviewed, old records reviewed Mode of arrival: EMS <Delores Delong - Last Filed: 11/17/17 12:29> - General Chief complaint: Recheck/Abnormal Lab/Rx Stated complaint: Post Op Pain Time Seen by Provider: 11/17/17 08:33 - History of Present Illness Initial comments: This patient's a 57-year-old male with history of recent appendectomy with comp location including abscess and then needing to have a wound VAC. He is currently at an [facility] care facility in and has a PICC line for IV antibiotics. Patient is currently receiving Rocephin. He reports that he had his wound VAC removed last Thursday. He states that today he woke up out of his sleep with significant drainage from his right lower quadrant incision site. He reports that he woke up and his bed was soaked in yellow and red drainage. Patient reports he has had no fevers. He reports that he's noticed some redness around the incision site. He denies any chest pain shortness of breath , and has had normal urination and bowel habits. (Delores Delong) - Related Data Home Medications Medication Instructions Recorded Confirmed Furosemide [Lasix] 40 mg PO DAILY 10/24/17 11/17/17 Lisinopril [Prinivil] 10 mg PO DAILY 10/24/17 11/17/17 Potassium Chloride [K-Tab ER] 10 meq PO DAILY 10/24/17 11/17/17 HYDROcodone/APAP 5-325MG [[place] 1 tab PO Q6HR PRN 11/17/17 11/17/17 5-325] Pantoprazole Sodium [Protonix] 40 mg PO DAILY 11/17/17 11/17/17 Previous Rx's Medication Instructions Recorded Heparin Sodium,Porcine [Heparin 5,000 unit SQ Q8HR #0 vial 11/06/17 Sodium] Metoprolol Tartrate [Lopressor] 25 mg PO TID #90 tab 11/06/17 cefTRIAXone [Rocephin] 2,000 mg IVP Q24HR syringe 11/06/17 Allergies Allergy/AdvReac Type Severity Reaction Status Date / Time No Known Allergies Allergy Verified 11/17/17 09:20 Review of Systems ROS Other: All systems not noted in ROS Statement are negative. <Froilan Loera - Last Filed: 11/17/17 12:15> ROS Other: All systems not noted in ROS Statement are negative. <Delores Delong - Last Filed: 11/17/17 12:29> ROS Statement: Those systems with pertinent positive or pertinent negative responses have been documented in the HPI. Past Medical History Past Medical History: Hypertension Additional Past Medical History / Comment(s): ARTHRITIS History of Any Multi-Drug Resistant Organisms: None Reported Past Surgical History: No Surgical Hx Reported, Appendectomy Past Psychological History: No Psychological Hx Reported Smoking Status: Current every day smoker Past Alcohol Use History: Occasional Past Drug Use History: None Reported <Delores Delong - Last Filed: 11/17/17 12:29> General Exam <Froilan Loera - Last Filed: 11/17/17 12:15> <Delores Delong - Last Filed: 11/17/17 12:29> - General Exam Comments Initial Comments: This is a 57-year-old male. Alert and oriented. No acute distress. General: Well appearing, well nourished, in no distress. Oriented x 3, normal mood and affect . Ambulating without difficulty. Skin: Good turgor, no rash, unusual bruising or prominent lesions Hair: Normal texture and distribution. HEENT: Head: Normocephalic, atraumatic, no visible or palpable masses, depressions, or scaring. Eyes: Visual acuity intact, conjunctiva clear, sclera non-icteric, EOM intact, PERRL. Mouth: Mucous membranes moist, no mucosal lesions. Teeth/Gums: No obvious caries or periodontal disease. No gingival inflammation or significant resorption. Pharynx: Mucosa non-inflamed, no tonsillar hypertrophy or exudate Neck: Supple, without lesions, bruits, or adenopathy, thyroid non-enlarged and non-tender Heart: No cardiomegaly or thrills; regular rate and rhythm, no murmur or gallop Lungs: Clear to auscultation and percussion Abdomen: Bowel sounds normal, patient has area of erythema over the right lower quadrant incision site. Purulent drainage noted from the right corner of the incision site. There seems to be a firm abscess underneath the skin. Back: Spine normal without deformity or tenderness, no CVA tenderness Extremities: No amputations or deformities, cyanosis, edema or varicosities, peripheral pulses intact Musculoskeletal: Normal gait and station. No misalignment, asymmetry, crepitation, defects, tenderness, masses, effusions, decreased range of motion, instability, atrophy or abnormal strength or tone in the head, neck, spine, ribs , pelvis or extremities. Neurologic: CN 2-12 normal. Sensation to pain, touch, and proprioception normal. (Delores Delong) Vital Signs 11/17/17 11/17/17 08:19 09:50 Temperature 97.4 F L Pulse Rate 105 H 97 Respiratory 18 16 Rate Blood Pressure 140/74 150/71 O2 Sat by Pulse 97 97 Oximetry Medical Decision Making - Lab Data Result diagrams: 11/17/17 09:48 11/17/17 09:48 <Froilan Loera - Last Filed: 11/17/17 12:15> - Lab Data Result diagrams: 11/17/17 09:48 11/17/17 09:48 - Radiology Data Radiology results: report reviewed <Delores Delong - Last Filed: 11/17/17 12:29> - Medical Decision Making The patient was seen and examined. The diagnostics are reviewed. The case is discussed with surgery and they're agreeable to admission with infectious disease to consult. The case is discussed with the PA and agree with the findings as documented. (Froilan Loera) 57-year-old male presents emergency department increased range from his right lower quadrant incision site from previous appendectomy. It comes patient's surgery including intra-abdominal abscess. He had a wound VAC placed and he is currently at [facility]. He had a one pack removed last Thursday. He states that today he woke up and noticed some purulent drainage and pain the right lower quadrant incision site. He does have significant amount of drainage when he sits up it does pour out of the right side of the incision. He was given IV fluids labwork obtained. White blood cell count is normal, negative lactic acid. He has no fevers. CT abdomen and pelvis was performed and shows a 7 cm x 6 cm x 6 cm fluid collection. Likely infected. I did do a wound culture of this at this time. Dr. Serna discussed this with Dr. Mendez. He will be admitted under observation under Dr. stern. Consult to Dr. Hamm. He reports Dr. Hamm to select appropriate antibiotics. (Delroes Delong) - Lab Data Lab Results 11/17/17 11/17/17 11/17/17 Range/Units 09:48 09:48 09:48 WBC 8.6 (3.8-10.6) k/uL RBC 4.54 (4.30-5.90) m/uL Hgb 12.9 L (13.0-17.5) gm/dL Hct 38.7 L (39.0-53.0) % MCV 85.3 (80.0-100.0) fL MCH 28.3 (25.0-35.0) pg MCHC 33.2 (31.0-37.0) g/dL RDW 13.6 (11.5-15.5) % Plt Count 185 (150-450) k/uL Neutrophils % 70 % Lymphocytes % 21 % Monocytes % 6 % Eosinophils % 1 % Basophils % 0 % Neutrophils # 6.0 (1.3-7.7) k/uL Lymphocytes # 1.8 (1.0-4.8) k/uL Monocytes # 0.5 (0-1.0) k/uL Eosinophils # 0.1 (0-0.7) k/uL Basophils # 0.0 (0-0.2) k/uL PT (9.0-12.0) sec INR (<1.2) APTT (22.0-30.0) sec Sodium 137 (137-145) mmol/L Potassium 4.5 (3.5-5.1) mmol/L Chloride 101 (98-107) mmol/L Carbon Dioxide 25 (22-30) mmol/L Anion Gap 11 mmol/L BUN 16 (9-20) mg/dL Creatinine 0.70 (0.66-1.25) mg/dL Est GFR (CKD-EPI)AfAm >90 (>60 ml/min/1.73 sqM) Est GFR (CKD-EPI)NonAf >90 (>60 ml/min/1.73 sqM) Glucose 104 H (74-99) mg/dL Plasma Lactic Acid Lopez 0.6 L (0.7-2.0) mmol/L Calcium 9.3 (8.4-10.2) mg/dL Total Bilirubin 0.4 (0.2-1.3) mg/dL AST 23 (17-59) U/L ALT 31 (21-72) U/L Alkaline Phosphatase 75 (38-126) U/L Total Protein 6.8 (6.3-8.2) g/dL Albumin 3.3 L (3.5-5.0) g/dL Amylase 41 (30-110) U/L Lipase 59 (23-300) U/L 11/17/17 Range/Units 09:48 WBC (3.8-10.6) k/uL RBC (4.30-5.90) m/uL Hgb (13.0-17.5) gm/dL Hct (39.0-53.0) % MCV (80.0-100.0) fL MCH (25.0-35.0) pg MCHC (31.0-37.0) g/dL RDW (11.5-15.5) % Plt Count (150-450) k/uL Neutrophils % % Lymphocytes % % Monocytes % % Eosinophils % % Basophils % % Neutrophils # (1.3-7.7) k/uL Lymphocytes # (1.0-4.8) k/uL Monocytes # (0-1.0) k/uL Eosinophils # (0-0.7) k/uL Basophils # (0-0.2) k/uL PT 10.7 (9.0-12.0) sec INR 1.1 (<1.2) APTT 23.5 (22.0-30.0) sec Sodium (137-145) mmol/L Potassium (3.5-5.1) mmol/L Chloride (98-107) mmol/L Carbon Dioxide (22-30) mmol/L Anion Gap mmol/L BUN (9-20) mg/dL Creatinine (0.66-1.25) mg/dL Est GFR (CKD-EPI)AfAm (>60 ml/min/1.73 sqM) Est GFR (CKD-EPI)NonAf (>60 ml/min/1.73 sqM) Glucose (74-99) mg/dL Plasma Lactic Acid Olpez (0.7-2.0) mmol/L Calcium (8.4-10.2) mg/dL Total Bilirubin (0.2-1.3) mg/dL AST (17-59) U/L ALT (21-72) U/L Alkaline Phosphatase (38-126) U/L Total Protein (6.3-8.2) g/dL Albumin (3.5-5.0) g/dL Amylase (30-110) U/L Lipase (23-300) U/L - Radiology Data CT shows large subcutaneous collection of the right lower quadrant incision measuring 7 x 6.2 x 6.8 cm's. Infection collection is not excluded. Resolution of previously noted a building collection in the right lower quadrant. Strandy postoperative changes in the right lower quadrant. No evidence of intra-abdominal abscess. Remainder of the examination is stable. ( Delores Delong) Disposition <Froilan Loera - Last Filed: 11/17/17 12:15> Time of Disposition: 12:28 <Delores Delong - Last Filed: 11/17/17 12:29> Clinical Impression: Surgical site infection Disposition: ADMITTED IP TO THIS HOSP Condition: Stable Referrals: Kody Mckenna Jr, [Primary Care Provider] - 1-2 days
[2017-11-17 10:10] LABS: Basophils % (A) 0 %; Eosinophils # (A) 0.1 k/uL (0-0.7); Eosinophils % (A) 1 %; HCT 38.7 % (39.0-53.0); HGB 12.9 gm/dL (13.0-17.5); Lymphocytes # (A) 1.8 k/uL (1.0-4.8); Lymphocytes % (A) 21 %; MCH 28.3 pg (25.0-35.0); MCHC 33.2 g/dL (31.0-37.0); MCV 85.3 fL (80.0-100.0); Mean Platelet Volume 8.2; Monocytes # (A) 0.5 k/uL (0-1.0); Monocytes % (A) 6 %; Neutrophils % (A) 70 %; Platelet Count 185 k/uL (150-450); RBC 4.54 m/uL (4.30-5.90); RDW 13.6 % (11.5-15.5); WBC 8.6 k/uL (3.8-10.6)
[2017-11-17 10:22] LABS: ALT 31 U/L (21-72); AST 23 U/L (17-59); Albumin 3.3 g/dL (3.5-5.0); Alkaline Phosphatase 75 U/L (38-126); Amylase 41 U/L (30-110); Anion Gap 11 mmol/L; Blood Urea Nitrogen 16 mg/dL (9-20); Calcium 9.3 mg/dL (8.4-10.2); Carbon Dioxide 25 mmol/L (22-30); Chloride 101 mmol/L (98-107); Glucose 104 mg/dL (74-99); Lipase 59 U/L (23-300); Potassium 4.5 mmol/L (3.5-5.1); Sodium 137 mmol/L (137-145); Total Bilirubin 0.4 mg/dL (0.2-1.3); Total Protein 6.8 g/dL (6.3-8.2)
[2017-11-17 10:25] LABS: INR 1.1 (<1.2); Partial Thromboplastin Time 23.5 sec (22.0-30.0); Prothrombin Time 10.7 sec (9.0-12.0)
--- NOTE | 2017-11-17 10:47 | CT ---
EXAMINATION TYPE: CT abdomen pelvis w con DATE OF EXAM: 11/17/2017 COMPARISON: NONE HISTORY: Drainage at incision site. Ruptured appendix on October 24 CT DLP: 1622 mGycm CONTRAST: CT scan of the abdomen and pelvis is performed without Oral Contrast and with IV Contrast, patient in jected with 100 mL of Isovue 300. FINDINGS: LUNG BASES-: No visible nodule. No infiltrate. Linear parenchymal scar atelectasis right lung base. LIVER/GB: No calcified gallstones. Stable simple cyst dome of the liver. Biliary tree is of normal caliber. PANCREAS: No inflammation. No distinct mass. SPLEEN: No splenic enlargement. No lesion seen. ADRENALS: No nodule. No thickening. KIDNEYS/BLADDER: No hydronephrosis. No nephrolithiasis. No distinct renal mass. Urinary bladder g rossly unremarkable. BOWEL: Postoperative changes of appendectomy right lower quadrant with the persistent strandy attenua tion noted. No evidence for intra-abdominal abscess at this time. Normal bowel caliber. No inflamma tion. GENITAL ORGANS: No gross abnormality. LYMPH NODES: No greater than 1cm abdominal or pelvic lymph nodes are appreciated. AORTA: No significant abnormality. OSSEOUS STRUCTURES: No significant abnormality is seen. OTHER: Large subcutaneous collection at right lower quadrant incision site measuring 7 x 6.2 x 6.8 cm . Infected collection is not excluded.. IMPRESSION: 1. Large subcutaneous collection at right lower quadrant incision site measuring 7 x 6.2 x 6.8 cm. I nfected collection is not excluded.. 2. Resolution previously noted bilobed collection within the right lower quadrant. Strandy postoperat jurgen changes right lower quadrant. No evidence for intra-abdominal abscess. Remainder of the examinati on is stable.
[2017-11-17] MEDS ORDERED: KETOROLAC 30 MG/ML 1 ML VIAL IVP PRN (12:29)
[2017-11-17] MEDS ORDERED: ONDANSETRON 4 MG/2 ML VIAL IVP PRN (12:29)
[2017-11-17] MEDS ORDERED: MORPHINE SULFATE 4MG/4ML SYRG IV PRN (12:29)
[2017-11-17] MEDS ORDERED: NALOXONE 0.4 MG/ML 1 ML VIAL IV PRN (12:29)
[2017-11-17] MEDS ORDERED: BISACODYL 10 MG SUPP RECTAL PRN (12:29)
[2017-11-17] MEDS ORDERED: HYDROcodone/APAP 5-325MG 1 EACH TAB PO PRN (12:32)
[2017-11-17] MEDS: SODIUM CHLORIDE 0.9% 1,000 ML IV SCH ×2 (12:46→21:20)
[2017-11-17] MEDS ORDERED: VANCOMYCIN IV PER PHARMACY 1 EACH MISC MISCELLANE PRN (15:37)
[2017-11-17] MEDS: VANCOMYCIN 1,750 MG in SODIUM CHLORIDE 0.9% 250 ML IVPB SCH ×2 (17:29→23:27)
[2017-11-17] MEDS: HEPARIN SODIUM,PORCINE 5,000 UNIT/ML 1 ML VIAL SQ SCH ×2 (17:29→23:27)
[2017-11-17] MEDS: METOPROLOL TARTRATE 25 MG TAB PO SCH ×2 (17:30→21:19)
--- NOTE | 2017-11-17 18:18 | P.GSHP ---
History of Present Illness H&P Date: 11/17/17 57yo M presents from nursing facility after sudden drainage from previous incision. He is known to me after an open appendectomy due to perforated appendicitis. He also had intra-abdominal abscesses formed during that admission. He has been doing well at the facility and states his energy has been increasing. This morning when he turned in bed he noticed a large amount of pink fluid from the incision site. He has been on IV abx per ID at the facility. He denies any fevers, chills, chest pain or SOB. He denies any pain at the site. He has no additional complaints at this time. - Review of Systems All systems: negative Past Medical History Past Medical History: Hypertension, Osteoarthritis (OA) Additional Past Medical History / Comment(s): Appendicitis with perforation with sepsis, post op urinatry retention, bilateral leg edema, arthritis bilateral hips and back. History of Any Multi-Drug Resistant Organisms: None Reported Past Surgical History: No Surgical Hx Reported, Appendectomy Additional Past Surgical History / Comment(s): 10/25/17 lap to open appendectomy , 11/03/17 diagnostic lap for abscess wash out and incisional hernia repair, picc line for abx. Past Anesthesia/Blood Transfusion Reactions: No Reported Reaction Smoking Status: Former smoker - Past Family History Father Family Medical History: Liver Disease Additional Family Medical History / Comment(s): Perfecto was an alcoholic and of cirrhosis of the liver. Mother Family Medical History: Congestive Heart Failure (CHF) Additional Family Medical History / Comment(s): Mother of CHF at the age of 59yrs. Medications and Allergies Home Medications Medication Instructions Recorded Confirmed Type Furosemide [Lasix] 40 mg PO DAILY 10/24/17 11/17/17 History Lisinopril [Prinivil] 10 mg PO DAILY 10/24/17 11/17/17 History Potassium Chloride [K-Tab ER] 10 meq PO DAILY 10/24/17 11/17/17 History Heparin Sodium,Porcine [Heparin 5,000 unit SQ Q8HR #0 vial 11/06/17 11/17/17 Rx Sodium] Metoprolol Tartrate [Lopressor] 25 mg PO TID #90 tab 11/06/17 11/17/17 Rx cefTRIAXone [Rocephin] 2,000 mg IVP Q24HR syringe 11/06/17 11/17/17 Rx HYDROcodone/APAP 5-325MG [[place] 1 tab PO Q6HR PRN 11/17/17 11/17/17 History 5-325] Pantoprazole Sodium [Protonix] 40 mg PO DAILY 11/17/17 11/17/17 History Allergies Allergy/AdvReac Type Severity Reaction Status Date / Time No Known Allergies Allergy Verified 11/17/17 09:20 Surgical - Exam Osteopathic Statement: *. No significant issues noted on an osteopathic structural exam other than those noted in the History and Physical/Consult. Vital Signs Temp Pulse Resp BP Pulse Ox 97.4 F L 105 H 18 140/74 97 11/17/17 08:19 11/17/17 08:19 11/17/17 08:19 11/17/17 08:19 11/17/17 08:19 - General well developed, no distress - Eyes PERRL - ENT normal mucosa, no hearing loss - Neck trachea midline - Respiratory no difficulty with respiration - Abdomen soft, nontender, nondistended, incisions healing well - no erythem or fluctuance , mild induration lateral to McBurney incision - Neurologic normal coordination, normal sensation - Musculoskeletal normal gait - Psychiatric oriented to time, oriented to person, oriented to place Results - Labs 11/17/17 09:48 11/17/17 09:48 Abnormal Lab Results - Last 24 Hours (Table) 11/17/17 11/17/17 11/17/17 Range/Units 09:48 09:48 09:48 Hgb 12.9 L (13.0-17.5) gm/dL Hct 38.7 L (39.0-53.0) % Glucose 104 H (74-99) mg/dL Plasma Lactic Acid Lopez 0.6 L (0.7-2.0) mmol/L Albumin 3.3 L (3.5-5.0) g/dL Microbiology - Last 24 Hours (Table) 11/17/17 09:48 Wound Culture - Preliminary Abdomen Diabetes panel 11/17/17 Range/Units 09:48 Sodium 137 (137-145) mmol/L Potassium 4.5 (3.5-5.1) mmol/L Chloride 101 (98-107) mmol/L Carbon Dioxide 25 (22-30) mmol/L BUN 16 (9-20) mg/dL Creatinine 0.70 (0.66-1.25) mg/dL Glucose 104 H (74-99) mg/dL Calcium 9.3 (8.4-10.2) mg/dL AST 23 (17-59) U/L ALT 31 (21-72) U/L Alkaline Phosphatase 75 (38-126) U/L Total Protein 6.8 (6.3-8.2) g/dL Albumin 3.3 L (3.5-5.0) g/dL Calcium panel 11/17/17 Range/Units 09:48 Calcium 9.3 (8.4-10.2) mg/dL Albumin 3.3 L (3.5-5.0) g/dL Pituitary panel 11/17/17 Range/Units 09:48 Sodium 137 (137-145) mmol/L Potassium 4.5 (3.5-5.1) mmol/L Chloride 101 (98-107) mmol/L Carbon Dioxide 25 (22-30) mmol/L BUN 16 (9-20) mg/dL Creatinine 0.70 (0.66-1.25) mg/dL Glucose 104 H (74-99) mg/dL Calcium 9.3 (8.4-10.2) mg/dL Adrenal panel 11/17/17 Range/Units 09:48 Sodium 137 (137-145) mmol/L Potassium 4.5 (3.5-5.1) mmol/L Chloride 101 (98-107) mmol/L Carbon Dioxide 25 (22-30) mmol/L BUN 16 (9-20) mg/dL Creatinine 0.70 (0.66-1.25) mg/dL Glucose 104 H (74-99) mg/dL Calcium 9.3 (8.4-10.2) mg/dL Total Bilirubin 0.4 (0.2-1.3) mg/dL AST 23 (17-59) U/L ALT 31 (21-72) U/L Alkaline Phosphatase 75 (38-126) U/L Total Protein 6.8 (6.3-8.2) g/dL Albumin 3.3 L (3.5-5.0) g/dL - Imaging CT scan - abdomen: report reviewed, image reviewed (Reviewed CT A/P images. Subcutaneous fluid collection noted - no obvious air in fluid) CT scan - pelvis: report reviewed, image reviewed Assessment and Plan Plan: 57yo M with fluid collection at previous surgical site - seroma vs abscess - Plan for IR drainage of fluid - Cont abx, ID consulted - OK to begin regular diet - Further recommendations after IR drainage
[2017-11-17 21:15] LABS: Appearance,Urine Clear (Clear); Bilirubin,Urine Negative (Negative); Blood,Urine Negative (Negative); Color,Urine Light Yellow; Glucose,Urine (UA) Negative (Negative); Ketones,Urine Negative (Negative); Leukocyte Esterase,Urine Negative (Negative); Nitrite,Urine Negative (Negative); PH, Urine 6.5 (5.0-8.0); Protein,Urine Negative (Negative); Specific Gravity,Urine 1.009 (1.001-1.035); Urobilinogen,Urine <2.0 mg/dL (<2.0)
--- NOTE | 2017-11-17 23:07 | CONS ---
CONSULTATION DATE OF SERVICE: 11/17/2017 REASON FOR CONSULTATION: Surgical site infection. HISTORY OF PRESENT ILLNESS: The patient is a 57-year-old male who was recently admitted to [facility] when the patient had perforated appendicitis, status post laparoscopic appendectomy. Postoperative course was complicated by development of an abscess. It was drained on 11/03/2017. The cultures at that time were positive for an E coli that was a sensitive pathogen and anaerobic Gram-negative bacilli. The patient did get a PICC line and was currently getting Rocephin 2 grams daily in addition to oral Flagyl while at [facility]. The patient said he was doing well. However, this morning when he woke up he noticed drainage from his incision site that was mostly blood stain. The patient did mention that he noticed a lump on the lateral side of his incision and some dull aching pain to no radiation. The patient denies any high- grade fever, rigors or chills. Denies having any chest pain, shortness of breath or cough. With these symptoms, the patient was sent to the ER for further evaluation. On arrival in the ER this morning, the patient was afebrile. He has a normal white count. The patient did have a CT of the abdomen and pelvis done which did show resolution of previous abdominal abscess, now with large subcutaneous collection at the right lower quadrant incision site measuring 7 x 6.2 x 6.8 cm; infected collection not excluded. The patient was admitted to hospital. He was continued on Rocephin. Infectious Disease was consulted for further recommendations regarding antibiotic therapy. REVIEW OF SYSTEMS: CONSTITUTIONAL: Positive for weakness. No fever. EYES: No complaint. ENT: No complaint. RESPIRATORY: No complaint. CARDIOVASCULAR: No complaint. GENITOURINARY: No complaint. GASTROINTESTINAL: As per HPI. MUSCULOSKELETAL: No complaint. INTEGUMENTARY: No complaint. PSYCHOLOGICAL: No complaint. ENDOCRINE: No complaint. NEUROLOGICAL: No complaint. PAST MEDICAL HISTORY: 1. Hypertension. 2. Osteoarthritis. 3. Ruptured appendicitis with abdominal abscess. 4. Urinary retention. PAST SURGICAL HISTORY: 1. Laparoscopic appendectomy. 2. Laparoscopic drainage of an abscess. 3. Incisional hernia repair. 4. PICC line for antibiotics. SOCIAL HISTORY: Remote history of smoking. No drinking or drug use. FAMILY HISTORY: Father an alcoholic and of cirrhosis of the liver. Mother with history of congestive heart failure; at age of 59. ALLERGIES: NO KNOWN DRUG ALLERGIES. CURRENT MEDICATIONS: 1. [place]. 2. Dulcolax. 3. Rocephin 2 grams daily. 4. Lasix. 5. Heparin. 6. Toradol. 7. Zestril. 8. Lopressor. 9. Morphine sulfate. 10.Zofran. 11.Protonix. 12.K-[place]. PHYSICAL EXAMINATION: Blood pressure is 143/76 with a pulse of 101, temperature 97.2. He is 98% on room air. General description is a middle-aged male lying in bed in no distress. No tachypnea or accessory muscle for respiration use. HEENT examination shows slight pallor. No scleral icterus. Oral mucosa membrane is dry. No pharyngeal erythema or thrush. NECK: Trachea is central. No thyromegaly. LUNGS: Unlabored breathing. Clear to auscultation anteriorly. No wheeze or crackle. HEART: S1, S2. Regular rate and rhythm. ABDOMEN: Soft. The patient did have a slight area of induration lateral to the incision. He did have some blood-stained drainage. No significant erythema EXTREMITIES: No edema of the feet. SKIN EXAMINATION: No rashes or mass palpable. Neurologically the patient is awake, alert, oriented x3. Mood and affect normal. LABS: Hemoglobin is 12.9 with a white count of 8.6, BUN of 16, creatinine 0.70. Electrolytes have normal. Liver enzymes are normal. Urine is negative. CT report as mentioned above. DIAGNOSTIC IMPRESSION AND PLAN: Patient admitted to hospital with drainage from his incision site with an area of induration. Drainage was mostly blood-stained with a question of possible postoperative seroma not entirely excluded; less likely an abscess, as the patient is currently not running a fever, did not have an elevated white count, but cannot be entirely excluded while the patient on Rocephin could be more likely Rocephin-resistant pathogens and more likely a Gram-positive pathogen such as Staphylococcus aureus. PLAN: 1. Wound culture has been obtained, both aerobic and anaerobic, further antibiotic therapy. 2. We will discontinue the Rocephin. 3. Will start the patient on vancomycin, Pharmacy to dose, target of 15, along with Zosyn. 4. Await surgical or IR drainage of this collection, which should be sent for deep culture. Thank you for this consultation. Will Follow this patient along with you. MMODL / IJN: [id number] /
[2017-11-18] MEDS: PIPERACILLIN-TAZOBACTAM 3.375 GM in DEXTROSE/WATER 1 50ML.BAG IVPB SCH ×3 (03:02→18:28)
[2017-11-18] MEDS: SODIUM CHLORIDE 0.9% 1,000 ML IV SCH ×3 (04:53→21:34)
[2017-11-18] MEDS: HEPARIN SODIUM,PORCINE 5,000 UNIT/ML 1 ML VIAL SQ SCH ×3 (07:43→23:54)
[2017-11-18] MEDS: VANCOMYCIN 1,750 MG in SODIUM CHLORIDE 0.9% 250 ML IVPB SCH ×3 (07:48→23:54)
[2017-11-18] MEDS: FUROSEMIDE 40 MG TAB PO SCH (08:19)
[2017-11-18] MEDS: LISINOPRIL 10 MG TAB PO SCH (08:19)
[2017-11-18] MEDS: METOPROLOL TARTRATE 25 MG TAB PO SCH ×3 (08:19→21:16)
[2017-11-18] MEDS: POTASSIUM CHLORIDE ER 10 MEQ TAB.ER.PRT PO SCH (08:19)
[2017-11-18] MEDS: PANTOPRAZOLE 40 MG/10 ML VIAL IV SCH (08:19)
[2017-11-18] MEDS ORDERED: cefTRIAXone IN SWFI 2,000 MG/20 ML SYRINGE IVP SCH (09:00)
[2017-11-18] MEDS ORDERED: PANTOPRAZOLE 40 MG TABLET PO SCH (09:00)
[2017-11-18] MEDS ORDERED: MORPHINE ORAL SOLN 10 MG/5 ML CUP PO PRN (09:15)
[2017-11-18] MEDS ORDERED: LIDOCAINE 1% INJ 10MG/ML (20 ML MDV) SQ PRN (09:48)
--- NOTE | 2017-11-18 16:42 | P.PCN ---
Date of Procedure: 11/18/17 Preoperative Diagnosis: Subcutaneous fluid collection Postoperative Diagnosis: Infected hematoma Procedure(s) Performed: Incision and drainage of infected hematoma Anesthesia: local Surgeon: Sriram Mendez Pathology: other (Deep wound cultures) Condition: stable Disposition: floor Indications for Procedure: 57-year-old male known to [place] secondary to perforated appendicitis and status post open appendectomy. He presented to the emergency department after a gush of fluid from his open appendectomy site. CT of the abdomen and pelvis was performed in the emergency department and a 7 cm fluid collection was noted. It was unclear whether this was an abscess or a seroma or hematoma. Plan is to evacuate this fluid collection. The patient was explained the risks, benefits and alternatives to the procedure. He did provide consent prior to the procedure. Operative Findings: Infected hematoma, 70 mL of hematoma and mild purulent material was drained Description of Procedure: The patient's incision site was prepped and draped in regular sterile fashion. Skin stefan from that site were removed. Local anesthetic was administered. The previous site of leakage of fluid was opened with a hemostat. Immediate evacuation of hematoma was noted. A Yankauer suction was placed within the cavity and both mild purulent and hematoma fluid was drained and suctioned clear. 70 mL total of fluid was drained. A finger was then placed into this cavity and all loculations were noted to be open. Irrigation was then placed in the wound and suctioned. A packing was placed in the wound. The patient tolerated the procedure well.
--- NOTE | 2017-11-18 16:43 | P.PN ---
Progress Note - Text Progress Note Date: 11/18/17 The patient was seen and examined at bedside today. Procedure of incision and drainage of subcutaneous fluid collection was performed. An infected hematoma was drained. At this point packing is in place. Once cleared with appropriate antibiotic therapy, the patient will be cleared for discharge.
--- NOTE | 2017-11-18 20:32 | PN ---
PROGRESS NOTE DATE OF SERVICE: 11/18/2017 REASON FOR FOLLOWUP: Surgical site infection or abdominal wall abscess. INTERVAL HISTORY: The patient is afebrile. He is currently breathing comfortably. Denies significant pain. Overall drainage has slightly decreased. Currently waiting for the IR drainage of this area. Patient denies having any chest pain, shortness of breath or cough. No nausea, vomiting or diarrhea. PHYSICAL EXAMINATION: Blood pressure 143/77 with a pulse of 88, temperature of 98.4. He is 97% on room air. General description is a middle-aged male lying in bed in no distress. RESPIRATORY SYSTEM: Unlabored breathing. Clear to auscultation anteriorly. HEART: S1, S2. Regular rate and rhythm. ABDOMEN: Soft. No tenderness. The right lower abdominal wall area of induration has decreased; minimal drainage. EXTREMITIES: No edema of the feet. LABS: Hemoglobin is 12.9, white count 8.6. Wound cultures obtained yesterday are currently pending. DIAGNOSTIC IMPRESSION AND PLAN: Patient admitted to hospital with fluid collection at the right lower abdominal wall incision site with a question of possible hematoma, seroma or abscess. Currently waiting for the drainage of this area, at which time deep cultures should be obtained. Patient has been maintained on Zosyn and vancomycin. That will be continued while waiting for the cultures to finalize. Continue with supportive care. MMODL / IJN: [id number] /
[2017-11-19] MEDS: PIPERACILLIN-TAZOBACTAM 3.375 GM in DEXTROSE/WATER 1 50ML.BAG IVPB SCH ×3 (02:08→17:37)
[2017-11-19] MEDS: SODIUM CHLORIDE 0.9% 1,000 ML IV SCH ×3 (06:07→17:33)
[2017-11-19] MEDS ORDERED: VANCOMYCIN TROUGH DUE 1 EACH MISC MISCELLANE ONE (07:00)
[2017-11-19] MEDS: FUROSEMIDE 40 MG TAB PO SCH (08:13)
[2017-11-19] MEDS: METOPROLOL TARTRATE 25 MG TAB PO SCH ×3 (08:13→20:45)
[2017-11-19] MEDS: VANCOMYCIN 1,750 MG in SODIUM CHLORIDE 0.9% 250 ML IVPB SCH (08:13)
[2017-11-19] MEDS: HEPARIN SODIUM,PORCINE 5,000 UNIT/ML 1 ML VIAL SQ SCH ×3 (08:13→23:37)
[2017-11-19] MEDS: POTASSIUM CHLORIDE ER 10 MEQ TAB.ER.PRT PO SCH (08:13)
[2017-11-19] MEDS: LISINOPRIL 10 MG TAB PO SCH (08:13)
[2017-11-19] MEDS: PANTOPRAZOLE 40 MG/10 ML VIAL IV SCH (08:13)
[2017-11-19 08:19] LABS: Calcium 8.9 mg/dL (8.4-10.2); Potassium 4.1 mmol/L (3.5-5.1)
--- NOTE | 2017-11-19 13:57 | PN ---
PROGRESS NOTE DATE OF SERVICE: 11/19/2017. REASON FOR FOLLOWUP: Right lower abdominal wall surgical site hematoma versus abscess. INTERVAL HISTORY: The patient is afebrile. The patient did have bedside drainage of the right lower abdominal wall fluid collection, which was mostly hematoma with some pus per the surgeon who did the procedure. The patient denies having any chest pain, shortness of breath or cough. No worsening abdominal pain or any diarrhea. EXAMINATION: Blood pressure 116/77 with a pulse of 83, temperature of 98.6. He is 94% on room air. General description is a middle-aged male lying in bed in no distress. RESPIRATORY SYSTEM: Unlabored breathing. Clear to auscultation anteriorly. HEART: S1, S2. Regular rate and rhythm. ABDOMEN: Soft, no tenderness. The overall area of induration has decreased after drainage procedure. No purulence was noted. LABS: Creatinine is 1.14. Blood culture repeated on admission was negative. The culture that was done yesterday by the surgeon is currently pending. DIAGNOSTIC IMPRESSION AND PLAN: Patient with right lower abdominal wall incision site fluid collection with a question of possible hematoma versus an abscess status post drainage. Initial cultures have been negative so far. He had a culture done yesterday that remains to be negative. May be able to let the patient go home on a short course of antibiotic to cover for the initial pathogen that he grew from initial drainage. Continue supportive care. MMODL / IJN: [id number] /
--- NOTE | 2017-11-19 17:02 | P.PN ---
Subjective Progress Note Date: 11/19/17 Pt seen and examined at bedside. Feeling well after incision and drainage. Denies fevers, chills. No additional complaints at this time. Objective - Vital Signs Vital signs: Vital Signs Temp 98.8 F 11/19/17 15:24 Pulse 90 11/19/17 15:24 Resp 20 11/19/17 15:24 BP 123/80 11/19/17 15:24 Pulse Ox 97 11/19/17 15:24 Intake & Output 11/18/17 11/19/17 11/19/17 18:59 06:59 18:59 Intake Total 600 1200 2220 Output Total 1250 1300 225 Balance -650 -100 1994 Weight 115.666 kg Intake: Intake, IV Titration 1260 Amount Piperacillin-Tazobactam 3 50 .375 gm In Dextrose/Water 1 50ml.bag @ 12.5 mls/hr IVPB Q8H JUVENCIO Rx#: [id number] Sodium Chloride 0.9% 1, 960 000 ml @ 120 mls/hr IV . Q8H20M JUVENCIO Rx#:[id number] Vancomycin 1,750 mg In 250 Sodium Chloride 0.9% 250 ml @ 125 mls/hr IVPB Q16H JUVENCIO Rx#:[id number] Oral 600 1200 960 Output: Urine 1250 1300 225 Other: Voiding Method Toilet Toilet # Voids 4 1 # Bowel Movements 0 1 0 - Constitutional General appearance: Present: cooperative - Respiratory Details: no difficulty with respiration - Gastrointestinal Gastrointestinal Comment(s): soft, nontender, nondistended, no rebound, no guarding, I and D site with serous drainage - Psychiatric Psychiatric: Present: A&O x's 3 - Labs CBC & Chem 7: 11/17/17 09:48 11/19/17 07:30 Labs: Abnormal Lab Results - Last 24 Hours (Table) 11/19/17 Range/Units 07:30 Vancomycin Trough 33.2 H* ug/mL Microbiology - Last 24 Hours (Table) 11/17/17 09:48 Gram Stain - Final Abdomen Wound Culture - Final 11/17/17 09:48 Blood Culture - Preliminary Blood No Growth after 48 hours 11/18/17 15:50 Gram Stain - Preliminary Abdomen Wound Culture - Preliminary 11/18/17 15:50 Anaerobic Culture - Preliminary Abdomen 11/17/17 15:50 Gram Stain - Preliminary Abdomen Wound Culture - Preliminary Assessment and Plan Plan: 57yo M with infected hematoma, POD #1 I and D - ID recommendations on abx for discharge - Continue regular diet - Increase activity - Plan for discharge to correction 11/20/17
[2017-11-20] MEDS: PIPERACILLIN-TAZOBACTAM 3.375 GM in DEXTROSE/WATER 1 50ML.BAG IVPB SCH ×2 (02:01→10:04)
[2017-11-20] MEDS ORDERED: VANCOMYCIN 1,750 MG in SODIUM CHLORIDE 0.9% 250 ML IVPB SCH (06:00)
[2017-11-20] MEDS: SODIUM CHLORIDE 0.9% 1,000 ML IV SCH (06:24)
[2017-11-20 06:49] VITALS: RESP 18
[2017-11-20 06:57] LABS: Calcium 8.7 mg/dL (8.4-10.2); Potassium 3.9 mmol/L (3.5-5.1)
[2017-11-20] MEDS ORDERED: PANTOPRAZOLE 40 MG TABLET PO SCH (07:30)
[2017-11-20] MEDS: POTASSIUM CHLORIDE ER 10 MEQ TAB.ER.PRT PO SCH (08:06)
[2017-11-20] MEDS: FUROSEMIDE 40 MG TAB PO SCH (08:06)
[2017-11-20] MEDS: LISINOPRIL 10 MG TAB PO SCH (08:06)
[2017-11-20] MEDS: HEPARIN SODIUM,PORCINE 5,000 UNIT/ML 1 ML VIAL SQ SCH ×2 (08:06→15:50)
[2017-11-20] MEDS: METOPROLOL TARTRATE 25 MG TAB PO SCH ×2 (10:04→15:51)
--- NOTE | 2017-11-20 12:03 | P.DS ---
Providers Date of admission: 11/17/17 12:18 Expected date of discharge: 11/20/17 Attending physician: Sriram Mendez DO Consults: 11/17/17 12:29 Consult Physician Stat Consulting Provider: Loreto Davison Consult Reason/Comments: Surgical Site infection Do you want consulting provider notified?: Yes Primary care physician: [facility] Course: 57-year-old was seen in the emergency room on the day of admission after patient was noted to have significant drainage from the right lower quadrant incisional site. Patient reports that he woke up his bed was soaked with yellow and red drainage he became concerned notified the care providers at the [facility] facility. Patient was transferred via the EMS system to be evaluated for the above-mentioned symptoms. Patient reports that he had his wound VAC removed a week prior to the incident. Patient has a history of a recent appendectomy which was complicated involving an abscess that he did have a wound VAC. With IV antibiotic therapy through a PICC line had currently been at the [facility] facility fabchin Ribeiro recuperating after undergoing on October 24 laparoscopic appendectomy converted to an open appendectomy secondary to perforated appendix with intra-abdominal stool. Patient was septic that admission. On November 03 patient underwent diagnostic laparoscopy intra- abdominal abscess washout incisional hernia repair done with a wound VAC placed. Patient was transferred to the [facility] facility on November 06. per dr davison recommendations the PICC line is to remain and IV antibiotics as ordered pt to be see op wound clinic This admission on November 18 the patient did undergo an incision and drainage of an infected hematoma. Additionally patient was followed throughout the hospitalization by Dr. Davison infectious disease. Wound cultures were obtained this admission recommendations were directed by infectious disease Dr. Davison Impression discharge diagnosis November 21 incision and drainage of an infected hematoma A recent open appendectomy on October 24 secondary to a perforated appendix with intra-abdominal stool with sepsis November 03 diagnostic laparoscopic inner abdominal abscess washout incisional hernia repair Morbid Obesity BMI 38 Essential hypertension Current every day smoker Positive wound culture E. coli and gram-negative bacilli prior abscess 2017 The above impression and plan of care have been discussed and directed by signing physician. Janie Escobar nurse practitioner acting as scribe for signing physician. Patient Condition at Discharge: Stable Plan - Discharge Summary Discharge Rx Participant: No New Discharge Prescriptions: New HYDROcodone/APAP 5-325MG [[place] 5-325] 1 each PO Q6HR PRN #30 tab PRN Reason: Moderate Pain cefTRIAXone [Rocephin] 2,000 mg IVP Q24HR #7 bag metroNIDAZOLE [Flagyl] 500 mg PO Q8HR #21 tab Continue Lisinopril [Prinivil] 10 mg PO DAILY Potassium Chloride [K-Tab ER] 10 meq PO DAILY Furosemide [Lasix] 40 mg PO DAILY Metoprolol Tartrate [Lopressor] 25 mg PO TID #90 tab Heparin Sodium,Porcine [Heparin Sodium] 5,000 unit SQ Q8HR #0 vial Pantoprazole Sodium [Protonix] 40 mg PO DAILY HYDROcodone/APAP 5-325MG [[place] 5-325] 1 tab PO Q6HR PRN PRN Reason: Pain Discontinued cefTRIAXone [Rocephin] 2,000 mg IVP Q24HR syringe Discharge Medication List Furosemide [Lasix] 40 mg PO DAILY 10/24/17 [History] Lisinopril [Prinivil] 10 mg PO DAILY 10/24/17 [History] Potassium Chloride [K-Tab ER] 10 meq PO DAILY 10/24/17 [History] Heparin Sodium,Porcine [Heparin Sodium] 5,000 unit SQ Q8HR #0 vial 11/06/17 [Rx] Metoprolol Tartrate [Lopressor] 25 mg PO TID #90 tab 11/06/17 [Rx] HYDROcodone/APAP 5-325MG [[place] 5-325] 1 tab PO Q6HR PRN 11/17/17 [History] Pantoprazole Sodium [Protonix] 40 mg PO DAILY 11/17/17 [History] HYDROcodone/APAP 5-325MG [[place] 5-325] 1 each PO Q6HR PRN #30 tab 11/20/17 [Rx] cefTRIAXone [Rocephin] 2,000 mg IVP Q24HR #7 bag 11/20/17 [Rx] metroNIDAZOLE [Flagyl] 500 mg PO Q8HR #21 tab 11/20/17 [Rx] Follow up Appointment(s)/Referral(s): Kody Mckenna Jr, DO [Primary Care Provider] - 1-2 days Sriram Mendez DO [Doctor of Osteopathic Medicine] - 1 Week Loreto Davison MD [STAFF PHYSICIAN] - 1 Week Patient Instructions/Handouts: Surgical Site Infections (DC) Activity/Diet/Wound Care/Special Instructions: regular diet Avoid constipation use [id number] stool softeners as needed activity as tolerated May use [id number] Tylenol or Motrin for pain relief using [place] as for severe pain only surgical site dressing changes: moist kerlix packed into abdomen Daily follow up in wound center at [facility] with Dr Davison Discharge Disposition: TRANSFER TO SNF/ECF
[2017-11-20 15:02] VITALS: BP 116/72; PULSE 80; TEMP 98.5
--- NOTE | 2017-11-20 15:10 | PN ---
PROGRESS NOTE DATE OF SERVICE: 11/19/2017 REASON FOR FOLLOWUP: Post surgical seroma/hematoma and a question of abdominal abscess. INTERVAL HISTORY: The patient is afebrile. He is currently breathing comfortably. Denies having any chest pain. No shortness of breath, abdominal pain or any diarrhea. PHYSICAL EXAMINATION: Blood pressure 133/88 with a pulse of 70, temperature 99.4. He is 97% on room air. General description is a middle-aged male, lying in bed in no distress. RESPIRATORY SYSTEM: Unlabored breathing, clear to auscultation anteriorly. HEART: S1, S2. Regular rate and rhythm. ABDOMEN: Soft. No drainage. LABS: His culture has been negative. CT was reviewed with Dr. Caraballo with almost resolution of his previous pelvic abscess. DIAGNOSTIC IMPRESSION AND PLAN: Patient with abdominal wall seroma, postsurgical, status post drainage. Blood cultures have been negative. Previously culture positive for Klebsiella E coli and anaerobic gram-negative. He will continue with IV Rocephin for another week along with oral Flagyl. We did recommend oral Ceftin and Flagyl and he can go home. However, per the nursing staff, the patient needs physical therapy and local wound care as he has to go to the residential where he continue with IV antibiotic therapy. MMODL / IJN: [id number] /
== END 2017-11-20 16:00 | DRG 907 ==
LOC: EC 08:14 → 4MS4W 12:18
PROVIDERS: ADMIT Surgery; ATTEND Surgery
PROC: 0J980ZZ Drainage of Abdomen Subcutaneous Tissue and Fascia, Open Approach (ICD-10-PCS; principal; 2017-11-18)
DX: L76.32 Postprocedural hematoma of skin and subcutaneous tissue following other procedure (principal); K65.1 Peritoneal abscess; T81.4XXA Infection following a procedure, initial encounter; E66.01 Morbid (severe) obesity due to excess calories; I10 Essential (primary) hypertension; F17.200 Nicotine dependence, unspecified, uncomplicated; Y83.6 Removal of other organ (partial) (total) as the cause of abnormal reaction of the patient, or of later complication, without mention of misadventure at the time of the procedure; M16.0 Bilateral primary osteoarthritis of hip; L76.34 Postprocedural seroma of skin and subcutaneous tissue following other procedure; M47.9 Spondylosis, unspecified; B96.20 Unspecified Escherichia coli [E. coli] as the cause of diseases classified elsewhere; B96.89 Other specified bacterial agents as the cause of diseases classified elsewhere; Z79.899 Other long term (current) drug therapy; Z68.38 Body mass index [BMI] 38.0-38.9, adult; Z82.49 Family history of ischemic heart disease and other diseases of the circulatory system; Z90.49 Acquired absence of other specified parts of digestive tract
CPT/HCPCS: 36415; 74177; 80048; 80053; 80202; 81003; 82150; 83605; 83690; 85025; 85610; 85730; 87040; 87070; 87075; 87205; 96360; 96361; 99285

== ENCOUNTER 2020-04-19 14:45 | Inpatient (IN) | payer MEDICARE, OTHER ==
--- NOTE | 2020-04-19 14:57 | ED ---
SOB HPI - General Stated Complaint: Chest Pain Time Seen by Provider: 04/19/20 14:45 Source: patient, EMS, RN notes reviewed Mode of arrival: EMS - History of Present Illness Initial Comments: This is a 60-year-old male with a history of smoking which he quit 2 years ago who is brought in from his doctor's office by EMS with complaints of chest pain shortness of breath is been going on for about 3 days. He does complain of exertional dyspnea no overt fevers chills or sweats no nausea vomiting no com plaints he does have some peripheral edema no other modifying factors MD Complaint: shortness of breath, chest pain - Related Data Home Medications Medication Instructions Recorded Confirmed Furosemide [Lasix] 40 mg PO DAILY 10/24/17 04/19/20 Lisinopril [Prinivil] 10 mg PO DAILY 10/24/17 04/19/20 Potassium Chloride [K-Tab ER] 10 meq PO DAILY 10/24/17 04/19/20 amLODIPine [Norvasc] 5 mg PO DAILY 04/19/20 04/19/20 Allergies Allergy/AdvReac Type Severity Reaction Status Date / Time No Known Allergies Allergy Verified 04/19/20 16:07 Review of Systems ROS Statement: Those systems with pertinent positive or pertinent negative responses have been documented in the HPI. ROS Other: All systems not noted in ROS Statement are negative. Past Medical History Past Medical History: Hypertension, Osteoarthritis (OA) Additional Past Medical History / Comment(s): Appendicitis with perforation with sepsis, post op urinatry retention, bilateral leg edema, arthritis bilateral hips and back. History of Any Multi-Drug Resistant Organisms: None Reported Past Surgical History: No Surgical Hx Reported, Appendectomy Additional Past Surgical History / Comment(s): 10/25/17 lap to open appendectomy, 11/03/17 diagnostic lap for abscess wash out and incisional hernia repair, 11/09/17 picc line for abx. Past Anesthesia/Blood Transfusion Reactions: No Reported Reaction Past Psychological History: No Psychological Hx Reported Additional Psychological History / Comment(s): Pt currently resides at [facility] for antibiotic therapy. He states he has been ambulating with a walker lately. He states he cane drive, but does not own a vehicle. Past Alcohol Use History: Occasional Additional Past Alcohol Use History / Comment(s): Pt states he started smoking in 1971 but has been an on and off smoker and quit for years at a time. He has not had a cigarette since 10/25/17 d/t health problems and hopes to quit. Past Drug Use History: None Reported - Past Family History Father Family Medical History: Liver Disease Additional Family Medical History / Comment(s): Perfecto was an alcoholic and of cirrhosis of the liver. Mother Family Medical History: Congestive Heart Failure (CHF) Additional Family Medical History / Comment(s): Mother of CHF at the age of 59yrs. General Exam - General Exam Comments Initial Comments: Is a well-developed well-nourished awake alert oriented times 3 male General appearance: alert, anxious Head exam: Present: atraumatic, normocephalic, normal inspection Eye exam: Present: normal appearance, PERRL, EOMI. Absent: scleral icterus, conjunctival injection, periorbital swelling ENT exam: Present: normal exam, mucous membranes moist Neck exam: Present: normal inspection. Absent: tenderness, meningismus, lymphadenopathy Respiratory exam: Present: normal lung sounds bilaterally. Absent: respiratory distress, wheezes, rales, rhonchi, stridor Cardiovascular Exam: Present: normal rhythm, tachycardia, normal heart sounds. Absent: systolic murmur, diastolic murmur, rubs, gallop, clicks GI/Abdominal exam: Present: soft, normal bowel sounds. Absent: distended, tenderness, guarding, rebound, rigid Extremities exam: Present: full ROM, normal capillary refill, pedal edema (Trace edema). Absent: tenderness, joint swelling, calf tenderness Back exam: Present: normal inspection Neurological exam: Present: alert, oriented X3, CN II-XII intact Psychiatric exam: Present: normal affect, normal mood Skin exam: Present: warm, dry, intact, normal color. Absent: rash Course Vital Signs 04/19/20 04/19/20 14:53 15:00 Temperature 98.2 F Pulse Rate 122 H 114 H Respiratory 20 29 H Rate Blood Pressure 134/92 134/92 O2 Sat by Pulse 96 94 L Oximetry - Reevaluation(s) Reevaluation #1: 04/19/20 17:20 Evaluation patient reveals no change in status. Reevaluation #2: 04/19/20 17:22 Lactic acidosis noted likely secondary to intravascular viral depletion. Infectious process is not identified. Medical Decision Making - Medical Decision Making I did discuss the findings with patient and with Dr. Weiss. Patient be admitted we placed on high-dose heparin. Pulmonary medicine will be consulted as well as cardiology for the elevated troponin. - Lab Data Result diagrams: 04/19/20 15:01 04/19/20 15:01 Lab Results 04/19/20 04/19/20 04/19/20 Range/Units 15:01 15:01 15:01 WBC 13.7 H (3.8-10.6) k/uL RBC 5.66 (4.30-5.90) m/uL Hgb 15.7 (13.0-17.5) gm/dL Hct 47.9 (39.0-53.0) % MCV 84.5 (80.0-100.0) fL MCH 27.7 (25.0-35.0) pg MCHC 32.8 (31.0-37.0) g/dL RDW 13.8 (11.5-15.5) % Plt Count 206 (150-450) k/uL Neutrophils % 82 % Lymphocytes % 11 % Monocytes % 4 % Eosinophils % 1 % Basophils % 0 % Neutrophils # 11.2 H (1.3-7.7) k/uL Lymphocytes # 1.4 (1.0-4.8) k/uL Monocytes # 0.6 (0-1.0) k/uL Eosinophils # 0.1 (0-0.7) k/uL Basophils # 0.1 (0-0.2) k/uL PT 10.8 (9.0-12.0) sec INR 1.0 (<1.2) APTT 22.7 (22.0-30.0) sec D-Dimer 9.28 H (<0.60) mg/L FEU Sodium 138 (137-145) mmol/L Potassium 4.1 (3.5-5.1) mmol/L Chloride 108 H (98-107) mmol/L Carbon Dioxide 19 L (22-30) mmol/L Anion Gap 11 mmol/L BUN 14 (9-20) mg/dL Creatinine 1.17 (0.66-1.25) mg/dL Est GFR (CKD-EPI)AfAm 78 (>60 ml/min/1.73 sqM) Est GFR (CKD-EPI)NonAf 68 (>60 ml/min/1.73 sqM) Glucose 190 H (74-99) mg/dL Plasma Lactic Acid Lopez (0.7-2.0) mmol/L Calcium 9.0 (8.4-10.2) mg/dL Magnesium 2.2 (1.6-2.3) mg/dL Total Bilirubin 0.7 (0.2-1.3) mg/dL AST 25 (17-59) U/L ALT 20 (4-49) U/L Alkaline Phosphatase 99 (38-126) U/L Creatine Kinase 86 (55-170) U/L Troponin I (0.000-0.034) ng/mL NT-Pro-B Natriuret Pep pg/mL Total Protein 7.2 (6.3-8.2) g/dL Albumin 4.1 (3.5-5.0) g/dL 04/19/20 04/19/20 04/19/20 Range/Units 15:01 15:01 15:01 WBC (3.8-10.6) k/uL RBC (4.30-5.90) m/uL Hgb (13.0-17.5) gm/dL Hct (39.0-53.0) % MCV (80.0-100.0) fL MCH (25.0-35.0) pg MCHC (31.0-37.0) g/dL RDW (11.5-15.5) % Plt Count (150-450) k/uL Neutrophils % % Lymphocytes % % Monocytes % % Eosinophils % % Basophils % % Neutrophils # (1.3-7.7) k/uL Lymphocytes # (1.0-4.8) k/uL Monocytes # (0-1.0) k/uL Eosinophils # (0-0.7) k/uL Basophils # (0-0.2) k/uL PT (9.0-12.0) sec INR (<1.2) APTT (22.0-30.0) sec D-Dimer (<0.60) mg/L FEU Sodium (137-145) mmol/L Potassium (3.5-5.1) mmol/L Chloride (98-107) mmol/L Carbon Dioxide (22-30) mmol/L Anion Gap mmol/L BUN (9-20) mg/dL Creatinine (0.66-1.25) mg/dL Est GFR (CKD-EPI)AfAm (>60 ml/min/1.73 sqM) Est GFR (CKD-EPI)NonAf (>60 ml/min/1.73 sqM) Glucose (74-99) mg/dL Plasma Lactic Acid Lopez 3.6 H* (0.7-2.0) mmol/L Calcium (8.4-10.2) mg/dL Magnesium (1.6-2.3) mg/dL Total Bilirubin (0.2-1.3) mg/dL AST (17-59) U/L ALT (4-49) U/L Alkaline Phosphatase (38-126) U/L Creatine Kinase (55-170) U/L Troponin I 0.093 H* (0.000-0.034) ng/mL NT-Pro-B Natriuret Pep 4870 pg/mL Total Protein (6.3-8.2) g/dL Albumin (3.5-5.0) g/dL - EKG Data -: EKG Interpreted by Me EKG Comments: Sinus tachycardia rate 124 OK interval 150 to QRS 100 QT since QTC 360/453 possible left atrial enlargement nonspecific ST-T wave configuration - Radiology Data Radiology results: report reviewed (I did review the imaging and report evidence of bilateral pulmonary emboli more so on the right than the left no saddle no right heart strain seen.), image reviewed Critical Care Time Critical Care Time: Yes Total Critical Care Time: 37 Critical Care Time: 37 minutes of critical care time includes initial presentation with history physical labs x-rays several reevaluation patient responsive therapy review of old charting discussion with the radiologist regarding the findings discussed with the admitting physician admission orders and documentation of the above Disposition Clinical Impression: Pulmonary embolism on left, Pulmonary embolism on right, Elevated troponin, Lactic acidosis Disposition: ADMITTED IP TO THIS [facility] Condition: Stable Referrals: Kody Mckenna Jr, [Primary Care Provider] - 1-2 days
[2020-04-19 15:16] LABS: Basophils # (A) 0.1 k/uL (0-0.2); Basophils % (A) 0 %; Eosinophils # (A) 0.1 k/uL (0-0.7); Eosinophils % (A) 1 %; HCT 47.9 % (39.0-53.0); HGB 15.7 gm/dL (13.0-17.5); Lymphocytes # (A) 1.4 k/uL (1.0-4.8); Lymphocytes % (A) 11 %; MCH 27.7 pg (25.0-35.0); MCHC 32.8 g/dL (31.0-37.0); MCV 84.5 fL (80.0-100.0); Mean Platelet Volume 9.3; Monocytes # (A) 0.6 k/uL (0-1.0); Monocytes % (A) 4 %; Neutrophils # (A) 11.2 k/uL (1.3-7.7); Neutrophils % (A) 82 %; Platelet Count 206 k/uL (150-450); RBC 5.66 m/uL (4.30-5.90); RDW 13.8 % (11.5-15.5); WBC 13.7 k/uL (3.8-10.6)
[2020-04-19 15:26] LABS: Albumin 4.1 g/dL (3.5-5.0); Magnesium 2.2 mg/dL (1.6-2.3); Potassium 4.1 mmol/L (3.5-5.1); Total Bilirubin 0.7 mg/dL (0.2-1.3); Total Protein 7.2 g/dL (6.3-8.2)
--- NOTE | 2020-04-19 15:26 | XR ---
EXAMINATION TYPE: XR chest 2V DATE OF EXAM: 04/19/2020 COMPARISON: NONE HISTORY: Chest pain and shortness of breath. TECHNIQUE: 2 Frontal and lateral views of the chest are obtained. FINDINGS: Slightly suboptimal secondary to patient's large body habitus. There is no focal air space opacity, pleural effusion, or pneumothorax seen. The cardiac silhouette size is enlarged. The oss eous structures are intact. IMPRESSION: Suboptimal study, cardiomegaly without acute pulmonary process noted.
[2020-04-19 15:45] LABS: Partial Thromboplastin Time 22.7 sec (22.0-30.0); Prothrombin Time 10.8 sec (9.0-12.0)
[2020-04-19 16:07] LABS: D-Dimer 9.28 mg/L FEU (<0.60)
[2020-04-19] MEDS ORDERED: HEPARIN SODIUM,PORCINE 5,000 UNIT/ML 1 ML VIAL IV PRN (16:58)
[2020-04-19] MEDS ORDERED: HEPARIN SODIUM,PORCINE 10,000 UNIT/ML 1 ML VIAL IV ONE (16:58)
--- NOTE | 2020-04-19 17:12 | CT ---
EXAMINATION TYPE: CT angio chest DATE OF EXAM: 04/19/2020 COMPARISON: HISTORY: right side pain post sx CT DLP: 1553.9 mGycm Automated exposure control for dose reduction was used. CONTRAST: Performed with IV Contrast, patient injected with 100 mL of Isovue 300. There are 3-D post processed images. There is some interstitial bilateral perihilar upper lobe pulmonary infiltrates. There is no evidence of a pulmonary mass. There is no pleural effusion. Heart size is normal. There is no pericardial eff usion. There are no hilar masses. There is no mediastinal adenopathy. Thoracic aorta is intact. There is no aneurysm or dissection. There are large multiple filling defects the right pulmonary artery and the branches in the right upp er lobe and right lower lobe. There are also multiple filling defects in the left lower lobe pulmonar y artery. The bony thorax is intact. IMPRESSION: Multiple bilateral pulmonary emboli that is more severe on the right side. Minimal perihilar interstitial pulmonary infiltrates. No evidence of right heart strain. Exam was discussed with Dr. Orellana at 5:15 PM.
[2020-04-19] MEDS ORDERED: NALOXONE 0.4 MG/ML 1 ML VIAL IV PRN (17:24)
[2020-04-19] MEDS: HEPARIN SOD,PORK IN 0.45% NACL 25,000 UNIT in 0.45% NACL 1 250ML.BAG IV SCH (17:34)
[2020-04-19] MEDS: SODIUM CHLORIDE 0.9% 1,000 ML IV SCH (22:45)
[2020-04-20] MEDS: HEPARIN SOD,PORK IN 0.45% NACL 25,000 UNIT in 0.45% NACL 1 250ML.BAG IV SCH ×3 (06:41→20:28)
[2020-04-20] MEDS: SODIUM CHLORIDE 0.9% 1,000 ML IV SCH ×2 (06:43→17:40)
[2020-04-20] MEDS ORDERED: FUROSEMIDE 40 MG TAB PO SCH (09:00)
[2020-04-20] MEDS: POTASSIUM CHLORIDE ER 10 MEQ TAB.ER.PRT PO SCH (09:11)
[2020-04-20] MEDS: amLODIPine 5 MG TAB PO SCH (09:11)
[2020-04-20] MEDS: lisinopriL 10 MG TAB PO SCH (09:11)
--- NOTE | 2020-04-20 09:24 | US ---
EXAMINATION TYPE: US venous doppler duplex LE DATE OF EXAM: 04/20/2020 9:12 AM COMPARISON: NONE CLINICAL HISTORY: +PE, r/o DVT. bilateral leg edema, recent PE SIDE PERFORMED: bilateral TECHNIQUE: The lower extremity deep venous system is examined utilizing real time linear array sonog lexa with graded compression, doppler sonography and color-flow sonography. VESSELS IMAGED: External Iliac Vein (EIV) Common Femoral Vein Deep Femoral Vein Greater Saphenous Vein * Femoral Vein Popliteal Vein Small Saphenous Vein * Proximal Calf Veins (* superficial vessels) *Technical limitations due to patient's body habitus, morbidly obese Right Leg: +positive for DVT, thready flow with partial compression lower popliteal vein/proximal ca lf vein Left Leg: +positive for DVT popliteal vein IMPRESSION: Bilateral DVT as noted above.
[2020-04-20 10:12] LABS: Basophils # (A) 0.1 k/uL (0-0.2); Basophils % (A) 1 %; Eosinophils # (A) 0.1 k/uL (0-0.7); Eosinophils % (A) 1 %; HCT 45.4 % (39.0-53.0); HGB 14.6 gm/dL (13.0-17.5); Lymphocytes # (A) 1.7 k/uL (1.0-4.8); Lymphocytes % (A) 18 %; MCH 27.5 pg (25.0-35.0); MCHC 32.3 g/dL (31.0-37.0); MCV 85.2 fL (80.0-100.0); Mean Platelet Volume 9.5; Monocytes # (A) 0.4 k/uL (0-1.0); Monocytes % (A) 4 %; Neutrophils # (A) 6.8 k/uL (1.3-7.7); Neutrophils % (A) 73 %; Platelet Count 194 k/uL (150-450); RBC 5.32 m/uL (4.30-5.90); RDW 13.9 % (11.5-15.5); WBC 9.2 k/uL (3.8-10.6)
--- NOTE | 2020-04-20 11:30 | ECHOF ---
Referral Reason:LV function, +PE, Elev troponin MEASUREMENTS -------- HEIGHT: 172.7 cm WEIGHT: 147.9 kg BP: 125/81 RVIDd: 3.8 cm (< 3.3) IVSd: 1.5 cm (0.6 - 1.1) LVIDd: 3.7 cm (3.9 - 5.3) LVPWd: 1.7 cm (0.6 - 1.1) IVSs: 1.9 cm LVIDs: 2.0 cm LVPWs: 1.9 cm LAESV Index (A-L): 7.30 ml/m Ao Diam: 3.7 cm (2.0 - 3.7) AV Cusp: 2.4 cm (1.5 - 2.6) MV EXCURSION: 26.030 mm (> 18.000) MV EF SLOPE: 53 mm/s (70 - 150) EPSS: 0.3 cm MV E Hank: 0.61 m/s MV DecT: 133 ms MV A Hank: 0.90 m/s MV E/A Ratio: 0.67 RAP: 5.00 mmHg RVSP: 22.99 mmHg FINDINGS -------- This was a technically difficult study with suboptimal apical views. The left ventricular size is normal. There is moderate concentric left ventricular hypertrophy. O verall left ventricular systolic function is normal with, an EF between 55 - 60 %. The right ventricle is moderate to severely enlarged. Normal LA size by volume 22+/-6 ml/m2. The right atrium was not well visualized. 5.0mg of Lumason was utilized for enhancement of images Interatrial and interventricular septum intact. The aortic valve is trileaflet and appears structurally normal. There is no evidence of aortic regu rgitation. There is no evidence of aortic stenosis. No mitral regurgitation. Mild tricuspid regurgitation present. There is no evidence of pulmonary hypertension. The right v entricular systolic pressure, as measured by Doppler, is 22.99mmHg. There is no pulmonic regurgitation present. The aortic root size is normal. IVC Not well visulized. There is no pericardial effusion. CONCLUSIONS -------- 1. The left ventricular size is normal. 2. There is moderate concentric left ventricular hypertrophy. 3. Overall left ventricular systolic function is normal with, an EF between 55 - 60 %. 4. The right ventricle is moderate to severely enlarged. 5. Mild tricuspid regurgitation present. MUD JACK NOZZLEMAN: Madonna Allen RDCS
[2020-04-20] MEDS: FUROSEMIDE 10 MG/ML 4 ML VIAL IV SCH (11:58)
[2020-04-20] MEDS ORDERED: PANTOPRAZOLE 40 MG/10 ML VIAL IVP SCH (12:00)
--- NOTE | 2020-04-20 12:18 | P.CRDCN ---
History of Present Illness Consult date: 04/20/20 History of present illness: CHIEF COMPLAINT: Shortness of breath HISTORY OF PRESENT ILLNESS: 60-year-old male with history of hypertension who presented to the emergency room with a chief complaint of short of breath. 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 Patient states he has been feeling short of breath for the last 3 days. He went to his primary care physician, Dr. Mckenna, yesterday who referred the patient to the ER via EMS for evaluation. Patient was found to have bilateral PE. Patient states his breathing has improved slightly since coming to the hospital. He denies any chest pain. He denies any recent travel. He reports he has been pretty inactive for the last week. He denies previous history of DVT or PE. Denies family history of DVT or PE. DIAGNOSTICS: EKG reveals sinus tachycardia Chest xray cardiomegaly without acute pulmonary process Laboratory data: WBC 9.2. Hemoglobin 14.6. Platelet count 194. D-dimer 9.28. Sodium 138. Potassium 4.1. BUN 14. Creatinine 1.17. Lactic acid 1.6. BNP 4870. Troponin 0.093. Current home cardiac medications include Norvasc 5 mg daily, lisinopril 10 mg daily, Lasix 40 mg daily REVIEW OF SYSTEMS: CONSTITUTIONAL: Denies fever or chills. HEENT: Denies blurred vision, vision changes, or eye pain. Denies hemoptysis CARDIOVASCULAR: Denies chest pain, orthopnea, PND or palpitations RESPIRATORY: Reports shortness of breath. GASTROINTESTINAL: Denies abdominal pain. Denies nausea or vomiting. HEMATOLOGIC: Denies bleeding disorders. GENITOURINARY: Denies any blood in urine. SKIN: Denies pruitis. Denies rash. PHYSICAL EXAM: VITAL SIGNS: Reviewed. GENERAL: Well-developed in no acute distress. HEENT: Head is normocephalic. Pupils are equal, round. Sclerae anicteric. Mucous membranes of the mouth are moist. Neck supple. No JVD or thyromegaly LUNGS: Respirations even and unlabored. Lungs essentially clear to auscultation bilaterally. HEART: Regular rate and rhythm. S1 and S2 heard. ABDOMEN: Soft. Nontender. EXTREMITIES: Normal range of motion. No clubbing or cyanosis. Peripheral pulses intact. 1-2+ lower extremity edema NEUROLOGIC: Awake and alert. Oriented x 3. ASSESSMENT: Shortness of breath Bilateral pulmonary emboli Bilateral lower extremity DVT Abnormal troponin, secondary to PE/DVT Hypertension Morbid obesity: BMI 49.6 PLAN: Continue IV heparin Obtain 2D echocardiogram to assess cardiac structure and function and to rule out right heart strain Pulmonary has been consulted. Await recommendations Nurse practitioner note has been reviewed by physician. Signing provider agrees with the documented findings, assessment, and plan of care. Past Medical History Past Medical History: Heart Failure, Hypertension, Osteoarthritis (OA) Additional Past Medical History / Comment(s): Appendicitis with perforation with sepsis, post op urinatry retention, bilateral leg edema, arthritis bilateral hips and back. History of Any Multi-Drug Resistant Organisms: None Reported Past Surgical History: Appendectomy Additional Past Surgical History / Comment(s): 10/25/17 lap to open appendectomy, 11/03/17 diagnostic lap for abscess wash out and incisional hernia repair, 11/09/17 picc line for abx. Past Anesthesia/Blood Transfusion Reactions: No Reported Reaction Smoking Status: Former smoker - Past Family History Father Family Medical History: Liver Disease Additional Family Medical History / Comment(s): Perfecto was an alcoholic and of cirrhosis of the liver. Mother Family Medical History: Congestive Heart Failure (CHF) Additional Family Medical History / Comment(s): Mother of CHF at the age of 59yrs. Medications and Allergies Home Medications Medication Instructions Recorded Confirmed Type Furosemide [Lasix] 40 mg PO DAILY 10/24/17 04/19/20 History Lisinopril [Prinivil] 10 mg PO DAILY 10/24/17 04/19/20 History Potassium Chloride [K-Tab ER] 10 meq PO DAILY 10/24/17 04/19/20 History amLODIPine [Norvasc] 5 mg PO DAILY 04/19/20 04/19/20 History Allergies Allergy/AdvReac Type Severity Reaction Status Date / Time No Known Allergies Allergy Verified 04/19/20 16:07 Physical Exam Vitals: Vital Signs Temp Pulse Pulse Resp BP BP Pulse Ox 04/20/20 11:56 98 18 138/78 96 04/20/20 08:00 97.7 F 92 18 135/81 94 L 04/20/20 03:48 98.0 F 89 23 125/81 95 04/19/20 23:41 82 25 H 116/66 94 L 04/19/20 20:20 98.5 F 103 H 23 129/64 96 04/19/20 19:03 101 H 21 04/19/20 18:30 98.4 F 101 H 21 132/85 97 04/19/20 17:48 99 18 112/73 97 04/19/20 15:00 114 H 29 H 134/92 94 L 04/19/20 14:53 98.2 F 122 H 20 134/92 96 Intake and Output 04/19/20 04/20/20 04/20/20 22:59 06:59 14:59 Intake Total 250.00 Output Total 325 Balance -75.00 Intake: Intake, IV Titration 250.00 Amount Heparin Sod,Pork in 0.45% 250.00 NaCl 25,000 unit In 0.45 % NaCl 1 250ml.bag @ 15. 365 UNITS/KG/HR 22.999 mls/hr IV .[id number] [facility] Rx #:[id number] Output: Urine 325 Other: Voiding Method Urinal Weight 149.685 kg 148 kg Results 04/20/20 09:23 04/19/20 15:01 Cardiac Enzymes 04/19/20 04/19/20 Range/Units 15:01 15:01 AST 25 (17-59) U/L Troponin I 0.093 H* (0.000-0.034) ng/mL Coagulation 04/19/20 04/19/20 04/20/20 Range/Units 15:01 23:25 09:23 PT 10.8 (9.0-12.0) sec APTT 22.7 113.8 H* 45.9 H (22.0-30.0) sec CBC 04/19/20 04/20/20 Range/Units 15:01 09:23 WBC 13.7 H 9.2 (3.8-10.6) k/uL RBC 5.66 5.32 (4.30-5.90) m/uL Hgb 15.7 14.6 (13.0-17.5) gm/dL Hct 47.9 45.4 (39.0-53.0) % Plt Count 206 194 (150-450) k/uL Comprehensive Metabolic Panel 04/19/20 Range/Units 15:01 Sodium 138 (137-145) mmol/L Potassium 4.1 (3.5-5.1) mmol/L Chloride 108 H (98-107) mmol/L Carbon Dioxide 19 L (22-30) mmol/L BUN 14 (9-20) mg/dL Creatinine 1.17 (0.66-1.25) mg/dL Glucose 190 H (74-99) mg/dL Calcium 9.0 (8.4-10.2) mg/dL AST 25 (17-59) U/L ALT 20 (4-49) U/L Alkaline Phosphatase 99 (38-126) U/L Total Protein 7.2 (6.3-8.2) g/dL Albumin 4.1 (3.5-5.0) g/dL Current Medications Generic Name Dose Route Start Last Admin Trade Name Freq PRN Reason Stop Dose Admin Amlodipine Besylate 5 mg 04/20/20 09:00 04/20/20 09:11 Amlodipine 5 Mg Tab PO 5 mg DAILY JUVENCIO Administration Furosemide 40 mg 04/20/20 10:15 04/20/20 11:58 Furosemide 10 Mg/Ml 4 Ml Vial IV 40 mg DAILY JUVENCIO Administration Heparin Sodium (Porcine) 0 unit 04/19/20 16:58 Heparin Sodium,Porcine 5,000 Unit/Ml 1 Ml Vial IV PER PROTOCOL PRN Low PTT Protocol Heparin Sodium/Sodium Chloride 250 mls @ 22.999 mls/hr 04/19/20 17:00 04/20/20 06:41 25,000 unit/ Sodium Chloride IV 12.365 units/kg/hr .[id number] JUVENCIO 18.509 mls/hr Administration Protocol 15.365 UNITS/KG/HR Sodium Chloride 1,000 mls @ 80 mls/hr 04/19/20 17:30 04/20/20 06:43 Saline 0.9% IV 80 mls/hr .[id number] JUVENCIO Administration Lisinopril 10 mg 04/20/20 09:00 04/20/20 09:11 Lisinopril 10 Mg Tab PO 10 mg DAILY JUVENCIO Administration Naloxone HCl 0.2 mg 04/19/20 17:24 Naloxone 0.4 Mg/Ml 1 Ml Vial IV Q2M PRN Opioid Reversal Pantoprazole Sodium 40 mg 04/20/20 12:00 Pantoprazole 40 Mg/10 Ml Vial IVP DAILY JUVENCIO Potassium Chloride 10 meq 04/20/20 09:00 04/20/20 09:11 Potassium Chloride Er 10 Meq Tab.Er.Prt PO 10 meq DAILY JUVENCIO Administration Intake and Output 04/19/20 04/20/20 04/20/20 22:59 06:59 14:59 Intake Total 250.00 Output Total 325 Balance -75.00 Intake: Intake, IV Titration 250.00 Amount Heparin Sod,Pork in 0.45% 250.00 NaCl 25,000 unit In 0.45 % NaCl 1 250ml.bag @ 15. 365 UNITS/KG/HR 22.999 mls/hr IV .[id number] J[facility]ENC[facility] Rx #:[id number] Output: Urine 325 Other: Voiding Method Urinal Weight 149.685 kg 148 kg 04/20/20 09:23 04/19/20 15:01
--- NOTE | 2020-04-20 14:44 | P.CNPUL ---
History of Present Illness Consult date: 04/20/20 Reason for consult: pulmonary embolism History of present illness: A 60-year-old morbidly obese male patient with a BMI of 49.6, sedated lifestyle, coming in with few days' history of worsening shortness of breath and increased lower extremity edema. He denied having any chest pain. No pleurisy. No hemoptysis. He doesn't do a whole lot of walking or mobility. No history of malignancy. No 71 recent surgery. No history of any recent travel. In the ED, the patient was found to have an elevated d-dimer. Doppler of the lower extremity was positive for bilateral popliteal DVT. CT angiogram of the chest shows about the pulmonary embolism and the patient was started on IV heparin the patient got transferred to the telemetry unit. No previous history of DVT. No previous history of pulmonary embolism. No history of any malignancy. The echo of the heart showed LV function is normal. There is moderate concentric LVH, RV is moderate to severe dilated. The right ventricular systolic pressure was measured to be 22 mmHg. Left anterior ejection fraction of 55-60%. No other valvular abnormalities have been noted. The EKG showing sinus tachycardia at a time of admission with a heart rate of [address] segment abnormalities. The troponin was at 0.09. ProBNP level was 4870. The patient is currently on IV heparin. Review of Systems Constitutional: Reports daytime sleepiness, Reports fatigue, Reports weakness, Reports weight gain Eyes: denies as per HPI, denies blurred vision, denies bulging eye, denies decreased vision, denies diplopia, denies discharge, denies dry eye, denies irritation, denies itching, denies pain, denies photophobia, denies loss of peripheral vision, denies loss of vision, denies tunnel vision/blind spots Ears: deny: decreased hearing, ear discharge, earache, tinnitus Ears, nose, mouth and throat: Reports as per HPI Breasts: absent: as per HPI, gynecomastia Cardiovascular: Reports decreased exercise tolerance, Reports dyspnea on exertion, Reports edema, Reports shortness of breath Respiratory: Reports dyspnea, Reports sleep apnea Gastrointestinal: Reports as per HPI Genitourinary: Reports as per HPI Musculoskeletal: Reports as per HPI, Reports muscle weakness Musculoskeletal: bilateral: ankle swelling, absent: ankle pain, ankle stiffness Integumentary: Reports as per HPI Neurological: Reports as per HPI Psychiatric: Reports as per HPI Endocrine: Reports as per HPI, Reports fatigue Hematologic/Lymphatic: Reports as per HPI Allergic/Immunologic: Reports as per HPI Past Medical History Past Medical History: Heart Failure, Hypertension, Osteoarthritis (OA) Additional Past Medical History / Comment(s): Appendicitis with perforation with sepsis, post op urinatry retention, bilateral leg edema, arthritis bilateral hips and back. History of Any Multi-Drug Resistant Organisms: None Reported Past Surgical History: Appendectomy Additional Past Surgical History / Comment(s): 10/25/17 lap to open appendectomy, 11/03/17 diagnostic lap for abscess wash out and incisional hernia repair, 11/09/17 picc line for abx. Past Anesthesia/Blood Transfusion Reactions: No Reported Reaction Smoking Status: Former smoker - Past Family History Father Family Medical History: Liver Disease Additional Family Medical History / Comment(s): Perfecto was an alcoholic and of cirrhosis of the liver. Mother Family Medical History: Congestive Heart Failure (CHF) Additional Family Medical History / Comment(s): Mother of CHF at the age of 59yrs. Medications and Allergies Home Medications Medication Instructions Recorded Confirmed Type Furosemide [Lasix] 40 mg PO DAILY 10/24/17 04/19/20 History Lisinopril [Prinivil] 10 mg PO DAILY 10/24/17 04/19/20 History Potassium Chloride [K-Tab ER] 10 meq PO DAILY 10/24/17 04/19/20 History amLODIPine [Norvasc] 5 mg PO DAILY 04/19/20 04/19/20 History Allergies Allergy/AdvReac Type Severity Reaction Status Date / Time No Known Allergies Allergy Verified 04/19/20 16:07 Physical Exam Vitals: Vital Signs Temp Pulse Pulse Resp BP BP Pulse Ox 04/20/20 11:56 98 18 138/78 96 04/20/20 08:00 97.7 F 92 18 135/81 94 L 04/20/20 03:48 98.0 F 89 23 125/81 95 04/19/20 23:41 82 25 H 116/66 94 L 04/19/20 20:20 98.5 F 103 H 23 129/64 96 04/19/20 19:03 101 H 21 04/19/20 18:30 98.4 F 101 H 21 132/85 97 04/19/20 17:48 99 18 112/73 97 04/19/20 15:00 114 H 29 H 134/92 94 L 04/19/20 14:53 98.2 F 122 H 20 134/92 96 Intake and Output 04/19/20 04/20/20 04/20/20 22:59 06:59 14:59 Intake Total 250.00 508 Output Total 325 975 Balance -75.00 -467 Intake: IV 28 Heparin Sod,Pork in 0.45% 28 NaCl 25,000 unit In 0.45 % NaCl 1 250ml.bag @ 15. 365 UNITS/KG/HR 22.999 mls/hr IV .[id number] [facility] Rx #:[id number] Intake, IV Titration 250.00 Amount Heparin Sod,Pork in 0.45% 250.00 NaCl 25,000 unit In 0.45 % NaCl 1 250ml.bag @ 15. 365 UNITS/KG/HR 22.999 mls/hr IV .[id number] [facility] Rx #:[id number] Oral 480 Output: Urine 325 975 Other: Voiding Method Urinal Weight 149.685 kg 148 kg Morbidly obese, comfortable not in acute respiratory distress Head exam was generally normal. There was no scleral icterus or corneal arcus. Mucous membranes were moist. Neck was supple and without jugular venous distension, thyromegaly, or carotid bruits. Carotids were easily palpable bilaterally. There was no adenopathy. Mallampati class IV Lungs sounds are diminished in the lung bases bilaterally. No crackles or wheezes or rhonchi. Cardiac exam revealed the PMI to be normally situated and sized. The rhythm was regular and no extrasystoles were noted during several minutes of auscultation. The first and second heart sounds were normal and physiologic splitting of the second heart sound was noted. There were no murmurs, rubs, clicks, or gallops. Abdomen is obese soft nontender. Organs cannot be palpated. No direct tenderness or rebound tenderness or guarding. Extremities are showing +1 pitting edema. No cyanosis or clubbing. Neurologically, the patient is awake and alert and the patient does not have any focal neurological deficit. Cranial nerves are essentially intact. Examination of the skin revealed no evidence of significant rashes, suspicious appearing nevi or other concerning lesions. Results - Laboratory Findings CBC and BMP: 04/20/20 09:23 04/19/20 15:01 PT/INR, D-dimer PT 10.8 sec (9.0-12.0) 04/19/20 15:01 INR 1.0 (<1.2) 04/19/20 15:01 D-Dimer 9.28 mg/L FEU (<0.60) H 04/19/20 15:01 Abnormal lab findings: Abnormal Labs 04/19/20 04/19/20 04/19/20 15:01 15:01 15:01 WBC 13.7 H Neutrophils # 11.2 H APTT D-Dimer 9.28 H Chloride 108 H Carbon Dioxide 19 L Glucose 190 H Plasma Lactic Acid Lopez Troponin I 04/19/20 04/19/20 04/19/20 15:01 15:01 17:55 WBC Neutrophils # APTT D-Dimer Chloride Carbon Dioxide Glucose Plasma Lactic Acid Lopez 3.6 H* 2.7 H* Troponin I 0.093 H* 04/19/20 04/20/20 23:25 09:23 WBC Neutrophils # APTT 113.8 H* 45.9 H D-Dimer Chloride Carbon Dioxide Glucose Plasma Lactic Acid Lopez Troponin I - Diagnostic Findings Chest x-ray: image reviewed Assessment and Plan Plan: 1 acute bilateral pulmonary embolism secondary to lower extremity DVT. Identify respect a sedentary lifestyle. No recent history of travel or surgery or any other malignancy. No personal family history of venothromboembolic disease. The patient has some minimal troponin leak in addition to right ventricular dilatation which probably is chronic rather than acute. The pulmonary artery personal nonelevated estimated to be around 22 mmHg. 2 acute hypoxic respiratory failure secondary to above 3 morbid obesity with features of obstructive sleep apnea BMI is 49.6 4 chronic lower extremity edema 5 hypertension Plan Proceed with IV heparin We'll transition this patient were normal and the globulin is within next 24-48 hours depending on his condition Lasix 40 mg IV every 24 hours We'll continue to follow
--- NOTE | 2020-04-20 15:11 | P.HPIM ---
History of Present Illness H&P Date: 04/20/20 Chief Complaint: Worsening shortness of breath, chest pain This is a 60-year-old gentleman sent directly via EMS to ER from PCPs office with complaints of worsening shortness of breath 3 days, chest pain, diaphoresis, in a patient with morbid obesity, CHF, hypertension, oste oarthritis, and multiple other medical issues. On admission, d-dimer elevated, 9.28, CT positive for bilateral PE, Dopplers positive for bilateral lower extremity DVT. No history of malignancy. Denies recent travel or recent surgery. Echo reporting normal LV function, moderate concentric left elly tricular hypertrophy, moderate to severe dilated RV. EKG reported sinus tachycardia with occasional PVCs, nonspecific ST segment abnormalities. Troponin 0.093, 0.038. BNP 4870. Afebrile, normal WBC Tachypneic, tachycardic, hypoxic-requiring 2-3 L O2 to maintain O2 sats in the 90s on admission. Chest x-ray suboptimal without acute pulmonary process Review of Systems ROS Statement: Those systems with pertinent positive or pertinent negative responses have been documented in the HPI. ROS Other: All systems not noted in ROS Statement are negative. Past Medical History Past Medical History: Heart Failure, Hypertension, Osteoarthritis (OA) Additional Past Medical History / Comment(s): Appendicitis with perforation with sepsis, post op urinatry retention, bilateral leg edema, arthritis bilateral hips and back. History of Any Multi-Drug Resistant Organisms: None Reported Past Surgical History: Appendectomy Additional Past Surgical History / Comment(s): 10/25/17 lap to open appendectomy, 11/03/17 diagnostic lap for abscess wash out and incisional hernia repair, 11/09/17 picc line for abx. Past Anesthesia/Blood Transfusion Reactions: No Reported Reaction Smoking Status: Former smoker - Past Family History Father Family Medical History: Liver Disease Additional Family Medical History / Comment(s): Perfecto was an alcoholic and of cirrhosis of the liver. Mother Family Medical History: Congestive Heart Failure (CHF) Additional Family Medical History / Comment(s): Mother of CHF at the age of 59yrs. Medications and Allergies Home Medications Medication Instructions Recorded Confirmed Type Furosemide [Lasix] 40 mg PO DAILY 10/24/17 04/19/20 History Lisinopril [Prinivil] 10 mg PO DAILY 10/24/17 04/19/20 History Potassium Chloride [K-Tab ER] 10 meq PO DAILY 10/24/17 04/19/20 History amLODIPine [Norvasc] 5 mg PO DAILY 04/19/20 04/19/20 History Allergies Allergy/AdvReac Type Severity Reaction Status Date / Time No Known Allergies Allergy Verified 04/19/20 16:07 Physical Exam Vitals: Vital Signs Temp Pulse Pulse Resp BP BP Pulse Ox 04/20/20 03:48 98.0 F 89 23 125/81 95 04/19/20 23:41 82 25 H 116/66 94 L 04/19/20 20:20 98.5 F 103 H 23 129/64 96 04/19/20 19:03 101 H 21 04/19/20 18:30 98.4 F 101 H 21 132/85 97 04/19/20 17:48 99 18 112/73 97 04/19/20 15:00 114 H 29 H 134/92 94 L 04/19/20 14:53 98.2 F 122 H 20 134/92 96 Intake and Output 04/19/20 04/20/20 04/20/20 22:59 06:59 14:59 Intake Total 250.00 Output Total 325 Balance -75.00 Intake: Intake, IV Titration 250.00 Amount Heparin Sod,Pork in 0.45% 250.00 NaCl 25,000 unit In 0.45 % NaCl 1 250ml.bag @ 15. 365 UNITS/KG/HR 22.999 mls/hr IV .[id number] [facility] Rx #:[id number] Output: Urine 325 Other: Voiding Method Urinal Weight 149.685 kg 148 kg PHYSICAL EXAM: VITAL SIGNS: As above GENERAL: Sitting up in bed, respiratory effort mildly increased HEENT: Conjunctivae normal. eyes normal. Oral mucosa moist NECK: No JVD. No thyroid enlargement. No LNs CARDIOVASCULAR: S1, S2 regular.. No murmur RESPIRATION: Breath sounds diminished in the bases. No rhonchi or crackles. No bronchial breathing. ABDOMEN: Soft, obese, nontender . No guarding. no masses palpable.Bowel sounds heard. LEGS: Positive edema, no cyanosis,. PSYCHIATRY: Alert and oriented X3, mood and affect normal. NERVOUS SYSTEM: Cranial N 2-12 grossly normal. Moves all 4 limbs. No focal deficits. Strength and sensation grossly intact.. Skin: Warm and dry, no rash Joints: No active swelling. No inflammation. Lymphatic system. No LN neck axilla. Results CBC & Chem 7: 04/20/20 09:23 04/19/20 15: Labs: Abnormal Lab Results - Last 24 Hours (Table) 04/19/20 04/19/20 04/19/20 Range/Units 15: 15: 15: WBC 13.7 H (3.8-10.6) k/uL Neutrophils # 11.2 H (1.3-7.7) k/uL APTT (22.0-30.0) sec D-Dimer 9.28 H (<0.60) mg/L FEU Chloride 108 H (98-107) mmol/L Carbon Dioxide 19 L (22-30) mmol/L Glucose 190 H (74-99) mg/dL Plasma Lactic Acid Elly (0.7-2.0) mmol/L Troponin I (0.000-0.034) ng/mL 04/19/20 04/19/20 04/19/20 Range/Units 15: 15: 17:55 WBC (3.8-10.6) k/uL Neutrophils # (1.3-7.7) k/uL APTT (22.0-30.0) sec D-Dimer (<0.60) mg/L FEU Chloride (98-107) mmol/L Carbon Dioxide (22-30) mmol/L Glucose (74-99) mg/dL Plasma Lactic Acid Elly 3.6 H* 2.7 H* (0.7-2.0) mmol/L Troponin I 0.093 H* (0.000-0.034) ng/mL 04/19/20 Range/Units 23:25 WBC (3.8-10.6) k/uL Neutrophils # (1.3-7.7) k/uL APTT 113.8 H* (22.0-30.0) sec D-Dimer (<0.60) mg/L FEU Chloride (98-107) mmol/L Carbon Dioxide (22-30) mmol/L Glucose (74-99) mg/dL Plasma Lactic Acid Elly (0.7-2.0) mmol/L Troponin I (0.000-0.034) ng/mL Thrombosis Risk Factor Assmnt - Choose All That Apply Any of the Below Risk Factors Present?: Yes Each Factor Represents 1 point: Age 41-60 years, Medical pt on bed rest, Obesity (BMI >25), Swollen legs (current) Other Risk Factors: Yes Other congenital or acquired thrombophilia - If yes, enter type in comment: No Thrombosis Risk Factor Assessment Total Risk Factor Score: 4 Thrombosis Risk Factor Assessment Level: Moderate Risk Assessment and Plan Assessment: Acute bilateral PEs and lower extremity DVTs. Acute hypoxic respiratory failure secondary to the above Acute chest pain, elevated troponin ruling out acute coronary syndrome Lactic acidosis, resolved History of nicotine dependence, quit smoking 2 years ago Morbid obesity, BMI 49.6 History of CHF, echo pending Hypertension, essential OA DEVYN, does not wear CPAP Plan: Continue on current medication regime ,monitoring and systemic treatment. Maintain anticoagulation on heparin drip, diuretics. Cardiology/pulmonary consults in place, recommendations pending. Echo pending. Hematology consulted. Patient will need a sleep study outpatient. Weight loss and increasing activity discussed. Coronavirus testing ordered. The impression and plan of care has been dictated as directed. : I performed a history and examination of this patient, discussed the same with the dictator. I agree with the dictator's note ,documented as a scribe. Any additional findings or plans will be noted.
--- NOTE | 2020-04-21 01:00 | P.CONS ---
History of Present Illness - Reason for Consult Consult date: 04/20/20 PE and DVT - History of Present Illness the patient is a 60-year-old White male, with morbid obesity and fairly sedentary lifestyle. The patient had developed some shortness of breath, and lower extremity swelling initially about 4-5 days ago. This had become much more prominent about 3 days prior. He therefore came into the emergency room. Evaluation revealed bilateral lower extremity Dopplers involving the popliteal veins as well as bilateral pulmonary emboli with clot burden highest on the right side. The patient was admitted and started on IV heparin. He denied any prior history of arterial or venous thrombosis. Though he is sedentary, he performs his activities of daily living without assistance, including activities outside the house such as shopping. No history of any chronic inflammation, steroid use or testosterone use. No recent history of any surgery, hospitalization or travel. There is no family history suggestive of any clotting disorder. Review of Systems Constitutional: Reports fatigue Eyes: denies blurred vision, denies pain Ears: deny: decreased hearing, ear discharge, earache, tinnitus Ears, nose, mouth and throat: Denies headache, Denies sore throat Cardiovascular: Reports palpitations, Reports shortness of breath Respiratory: Reports dyspnea, Reports snoring Gastrointestinal: Denies abdominal pain, Denies diarrhea, Denies nausea, Denies vomiting Genitourinary: Reports as per HPI Musculoskeletal: Reports as per HPI Integumentary: Denies pruritus, Denies rash Neurological: Reports weakness Psychiatric: Denies anxiety, Denies depression Endocrine: Reports fatigue, Reports weight change Hematologic/Lymphatic: Reports as per HPI Past Medical History Past Medical History: Heart Failure, Hypertension, Osteoarthritis (OA) Additional Past Medical History / Comment(s): Appendicitis with perforation with sepsis, post op urinatry retention, bilateral leg edema, arthritis bilateral hips and back. History of Any Multi-Drug Resistant Organisms: None Reported Past Surgical History: Appendectomy Additional Past Surgical History / Comment(s): 10/25/17 lap to open appendectomy, 11/03/17 diagnostic lap for abscess wash out and incisional hernia repair, 11/09/17 picc line for abx. Past Anesthesia/Blood Transfusion Reactions: No Reported Reaction Smoking Status: Former smoker - Past Family History Father Family Medical History: Liver Disease Additional Family Medical History / Comment(s): Perfecto was an alcoholic and of cirrhosis of the liver. Mother Family Medical History: Congestive Heart Failure (CHF) Additional Family Medical History / Comment(s): Mother of CHF at the age of 59yrs. Medications and Allergies Home Medications Medication Instructions Recorded Confirmed Type Furosemide [Lasix] 40 mg PO DAILY 10/24/17 04/19/20 History Lisinopril [Prinivil] 10 mg PO DAILY 10/24/17 04/19/20 History Potassium Chloride [K-Tab ER] 10 meq PO DAILY 10/24/17 04/19/20 History amLODIPine [Norvasc] 5 mg PO DAILY 04/19/20 04/19/20 History Allergies Allergy/AdvReac Type Severity Reaction Status Date / Time No Known Allergies Allergy Verified 04/19/20 16:07 Physical Exam Vitals: Vital Signs Temp Pulse Resp BP Pulse Ox 04/21/20 00:00 92 19 118/65 94 L 04/20/20 20:00 97.7 F 98 19 120/64 94 L 04/20/20 19:24 98 20 04/20/20 16:36 98.8 F 98 20 149/91 97 04/20/20 11:56 98 18 138/78 96 04/20/20 08:00 97.7 F 92 18 135/81 94 L 04/20/20 03:48 98.0 F 89 23 125/81 95 Intake and Output 04/20/20 04/20/20 04/21/20 14:59 22:59 06:59 Intake Total 508 490 Output Total 975 300 Balance -467 190 Intake: IV 28 Heparin Sod,Pork in 0.45% 28 NaCl 25,000 unit In 0.45 % NaCl 1 250ml.bag @ 15. 365 UNITS/KG/HR 22.999 mls/hr IV .[id number] [facility] Rx #:[id number] Intake, IV Titration 250 Amount Heparin Sod,Pork in 0.45% 250 NaCl 25,000 unit In 0.45 % NaCl 1 250ml.bag @ 15. 365 UNITS/KG/HR 22.999 mls/hr IV .[id number] [facility] Rx #:[id number] Oral 480 240 Output: Urine 975 300 Other: Voiding Method Urinal Urinal # Voids 1 - Constitutional General appearance: no acute distress - EENT Eyes: EOMI, PERRLA ENT: hearing grossly normal, normal oropharynx - Neck Neck: no lymphadenopathy Thyroid: bilateral: normal size - Respiratory Respiratory: bilateral: CTA - Cardiovascular Rhythm: regular Heart sounds: normal: S1, S2 - Gastrointestinal General gastrointestinal: normal bowel sounds, soft - Integumentary Integumentary: normal - Neurologic Neurologic: CNII-XII intact - Musculoskeletal Musculoskeletal: generalized weakness, strength equal bilaterally - Psychiatric Psychiatric: A&O x's 3, appropriate affect Results CBC & Chem 7: 04/20/20 09:23 04/19/20 15:01 Labs: Abnormal Lab Results - Last 24 Hours (Table) 04/20/20 04/20/20 Range/Units : 09: APTT 45.9 H (22.0-30.0) sec Troponin I 0.038 H* (0.000-0.034) ng/mL Comments: echocardiogram report reviewed Chest x-ray: report reviewed CT scan - chest: report reviewed Venous US: report reviewed Assessment and Plan (1) Venous thromboembolism (VTE) Narrative/Plan: The patient is presenting with bilateral DVT, as well as bilateral PE with clot burden heaviest in the right side. He is currently improved on IV heparin. He also had a mild troponin leak most likely due to the PE. Echocardiogram did show right ventricular dilatation, but pulmonary pressures were not markedly increased. - Possible etiologies were discussed in detail with the patient. He is morbidly obese with a sedentary lifestyle and likely some lower extremity venous insufficiency. However he does perform his activities of daily living regularly without assistance. therefore the above would generally be considered a comparatively soft provoking factor to cause extensive venous thromboembolism such as he has, by themselves. It would thus be reasonable to treat this as an unprovoked clot. Even if the above were sufficient risk factors they are likely to persist anyway. I would therefore recommend lifelong anticoagulation as long as patient tolerates treatment well. - 1 of the D.O. ACs would be an appropriate choice for outpatient anticoagulation for him, as long as covered by his insurance. - Based on the unprovoked nature of the clot, it would be reasonable to consider testing for hypercoagulable states. He was advised that the results would likely not change his management but may have implications for his family. He does have 1 child as well as several siblings. This will be done as an outpatient. Patient can follow up in the office about 4-6 weeks after discharge. - The patient has had negative Cologard test within the past few months. He does not know if he has ever had a PSA done. PSA will be ordered. He has no suspicious signs or symptoms to consider any extended testing for occult malignancy. Current Visit: Yes Status: Acute Code(s): I82.90 - ACUTE EMBOLISM AND THROMBOSIS OF UNSPECIFIED VEIN SNOMED Code(s): 483264102 Plan: therefore to the admitting service and other consultants for management of his other medical problems
[2020-04-21] MEDS: PANTOPRAZOLE 40 MG TABLET PO SCH (06:21)
[2020-04-21 06:47] LABS: Basophils # (A) 0.1 k/uL (0-0.2); Basophils % (A) 1 %; Eosinophils # (A) 0.2 k/uL (0-0.7); Eosinophils % (A) 2 %; HCT 44.6 % (39.0-53.0); HGB 14.3 gm/dL (13.0-17.5); Lymphocytes # (A) 2.2 k/uL (1.0-4.8); Lymphocytes % (A) 24 %; MCH 27.2 pg (25.0-35.0); Monocytes # (A) 0.5 k/uL (0-1.0); Monocytes % (A) 6 %; Neutrophils # (A) 5.8 k/uL (1.3-7.7); Neutrophils % (A) 64 %; Platelet Count 175 k/uL (150-450); RBC 5.25 m/uL (4.30-5.90); RDW 13.8 % (11.5-15.5); WBC 9.1 k/uL (3.8-10.6)
[2020-04-21] MEDS: amLODIPine 5 MG TAB PO SCH (09:30)
[2020-04-21] MEDS: lisinopriL 10 MG TAB PO SCH (09:30)
[2020-04-21] MEDS: FUROSEMIDE 10 MG/ML 4 ML VIAL IV SCH (09:30)
[2020-04-21] MEDS: POTASSIUM CHLORIDE ER 10 MEQ TAB.ER.PRT PO SCH (09:30)
[2020-04-21] MEDS: HEPARIN SOD,PORK IN 0.45% NACL 25,000 UNIT in 0.45% NACL 1 250ML.BAG IV SCH ×2 (10:50→23:29)
[2020-04-21] MEDS: SODIUM CHLORIDE 0.9% 1,000 ML IV SCH (10:54)
--- NOTE | 2020-04-21 11:33 | P.PN ---
Subjective Progress Note Date: 04/21/20 Principal diagnosis: Bilateral pulmonary embolus Vital signs are stable patient is significantly improved patient awake alert oriented 3 in good spirits, has been getting up with physical therapy reviewed all the consultants notes will visit her patient's a repeat visit OBS and the use of CPAP . We'll continue heparin Objective - Vital Signs Vital signs: Vital Signs Temp 97.7 F 04/21/20 08:00 Pulse 74 04/21/20 08:00 Resp 20 04/21/20 08:00 BP 135/74 04/21/20 08:00 Pulse Ox 93 L 04/21/20 08:00 Intake & Output 04/20/20 04/21/20 04/21/20 18:59 06:59 18:59 Intake Total 748 250 250 Output Total 590 660 4528 Balance - Weight 165.5 kg Intake: IV 28 Heparin Sod,Pork in 0.45% 28 NaCl 25,000 unit In 0.45 % NaCl 1 250ml.bag @ 15. 365 UNITS/KG/HR 22.999 mls/hr IV .[id number] [facility] Rx #:[id number] Intake, IV Titration 250 250 Amount Heparin Sod,Pork in 0.45% 250 250 NaCl 25,000 unit In 0.45 % NaCl 1 250ml.bag @ 15. 365 UNITS/KG/HR 22.999 mls/hr IV .[id number] [facility] Rx #:[id number] Oral 720 Output: Urine 839 625 7843 Other: Voiding Method Urinal # Voids 1 0 - Exam General: [Patient awake, alert and oriented times 3. Patient in no acute distress. Morbidly obese HEENT: [PERRL. EOMI. No pharyngeal erythema or exudate.] Neck: [No adenopathy.] Cardiac: [Heart regular in rate and rhythm. No S3. No S4. No clicks, rubs. No murmur.] Lungs: [Clear to auscultation bilaterally.] Abdomen: [No mass. No organomegaly. Bowel sounds presnt and normoactive in all 4 quadrants. Obese Extremes: [2+ edema no cyanosis no claudication normal pulses] : Normal male genitalia Musculoskeletal: [No joint erythema, edema or tenderness.] Skin: [No rash.] Neurologic: [No lateralizing deficits. CN II - XII grossly intact.] Lymphatic: [No adenopathy.] - Labs CBC & Chem 7: 04/21/20 06:19 04/19/20 15:01 Labs: Abnormal Lab Results - Last 24 Hours (Table) 04/20/20 04/21/20 Range/Units 09:23 06:19 APTT 50.7 H (22.0-30.0) sec Troponin I 0.038 H* (0.000-0.034) ng/mL Assessment and Plan (1) Obstructive sleep apnea Current Visit: Yes Status: Acute Code(s): G47.33 - OBSTRUCTIVE SLEEP APNEA (ADULT) (PEDIATRIC) SNOMED Code(s): 64512354 (2) Morbidly obese Current Visit: Yes Status: Acute Code(s): E66.01 - MORBID (SEVERE) OBESITY DUE TO EXCESS CALORIES SNOMED Code(s): 392279649 (3) Sedentary lifestyle Current Visit: Yes Status: Acute Code(s): Z91.89 - OTH PERSONAL RISK FACTORS, NOT ELSEWHERE CLASSIFIED SNOMED Code(s): 318549689 (4) Elevated troponin Current Visit: Yes Status: Acute Code(s): R79.89 - OTHER SPECIFIED ABNORMAL FINDINGS OF BLOOD CHEMISTRY SNOMED Code(s): 104470726 (5) Pulmonary embolism on left Current Visit: Yes Status: Acute Code(s): I26.99 - OTHER PULMONARY EMBOLISM WITHOUT ACUTE COR PULMONALE SNOMED Code(s): 21490714 (6) Pulmonary embolism on right Current Visit: Yes Status: Acute Code(s): I26.99 - OTHER PULMONARY EMBOLISM WITHOUT ACUTE COR PULMONALE SNOMED Code(s): 68307335 (7) Venous thromboembolism (VTE) Current Visit: Yes Status: Acute Code(s): I82.90 - ACUTE EMBOLISM AND THROMBOSIS OF UNSPECIFIED VEIN SNOMED Code(s): 352632637 Plan: Encourage ambulation Discussed but will hold treating sleep apnea for now stop heparin apixaban PE protocol Consider consultation with vascular surgery for possible Debra filter placement We will continue to follow closely Time with Patient: Greater than 30
--- NOTE | 2020-04-21 11:46 | P.PN ---
Subjective Progress Note Date: 04/21/20 Principal diagnosis: Acute hypoxic respiratory failure secondary to acute bilateral pulmonary emboli and lower extremity DVT A 60-year-old morbidly obese male patient with a BMI of 49.6, sedated lifestyle, coming in with few days' history of worsening shortness of breath and increased lower extremity edema. He denied having any chest pain. No pleurisy. No hemoptysis. He doesn't do a whole lot of walking or mobility. No history of malignancy. No 71 recent surgery. No history of any recent travel. In the ED, the patient was found to have an elevated d-dimer. Doppler of the lower extremity was positive for bilateral popliteal DVT. CT angiogram of the chest shows about the pulmonary embolism and the patient was started on IV heparin the patient got transferred to the telemetry unit. No previous history of DVT. No previous history of pulmonary embolism. No history of any malignancy. The echo of the heart showed LV function is normal. There is moderate concentric LVH, RV is moderate to severe dilated. The right ventricular systolic pressure was measured to be 22 mmHg. Left anterior ejection fraction of 55-60%. No other valvular abnormalities have been noted. The EKG showing sinus tachycardia at a time of admission with a heart rate of [address] segment abnormalities. The troponin was at 0.09. ProBNP level was 4870. The patient is currently on IV heparin. The patient is seen today 04/21/2020 in follow-up on the selective care unit. He is currently resting comfortably in bed. Awake and alert in no acute distress. Denies any worsening shortness of breath, cough or congestion. No hemoptysis. Continue to saturations in the low 90s on 2 L/m per nasal cannula. He is afebrile. Hemodynamically stable. White count 9.1. Hemoglobin 14.3. He remains on a heparin drip. Continued on IV diuretics. Objective - Vital Signs Vital signs: Vital Signs Temp 97.7 F 04/21/20 08:00 Pulse 74 04/21/20 08:00 Resp 20 04/21/20 08:00 BP 135/74 04/21/20 08:00 Pulse Ox 93 L 04/21/20 08:00 Intake & Output 04/20/20 04/21/20 04/21/20 18:59 06:59 18:59 Intake Total 748 250 250 Output Total 234 655 9473 Balance - Weight 165.5 kg Intake: IV 28 Heparin Sod,Pork in 0.45% 28 NaCl 25,000 unit In 0.45 % NaCl 1 250ml.bag @ 15. 365 UNITS/KG/HR 22.999 mls/hr IV .[id number] [facility] Rx #:[id number] Intake, IV Titration 250 250 Amount Heparin Sod,Pork in 0.45% 250 250 NaCl 25,000 unit In 0.45 % NaCl 1 250ml.bag @ 15. 365 UNITS/KG/HR 22.999 mls/hr IV .[id number] [facility] Rx #:[id number] Oral 720 Output: Urine 045 284 5817 Other: Voiding Method Urinal # Voids 1 0 - Exam Morbidly obese, comfortable not in acute respiratory distress Head exam was generally normal. There was no scleral icterus or corneal arcus. Mucous membranes were moist. Neck was supple and without jugular venous distension, thyromegaly, or carotid bruits. Carotids were easily palpable bilaterally. There was no adenopathy. Mallampati class IV Lungs sounds are diminished in the lung bases bilaterally. No crackles or wheezes or rhonchi. Cardiac exam revealed the PMI to be normally situated and sized. The rhythm was regular and no extrasystoles were noted during several minutes of auscultation. The first and second heart sounds were normal and physiologic splitting of the second heart sound was noted. There were no murmurs, rubs, clicks, or gallops. Abdomen is obese soft nontender. Organs cannot be palpated. No direct tenderness or rebound tenderness or guarding. Extremities are showing +1 pitting edema. No cyanosis or clubbing. Neurologically, the patient is awake and alert and the patient does not have any focal neurological deficit. Cranial nerves are essentially intact. Examination of the skin revealed no evidence of significant rashes, suspicious appearing nevi or other concerning lesions. - Labs CBC & Chem 7: 04/21/20 06:19 04/19/20 15:01 Labs: Abnormal Lab Results - Last 24 Hours (Table) 04/20/20 04/21/20 Range/Units 09:23 06:19 APTT 50.7 H (22.0-30.0) sec Troponin I 0.038 H* (0.000-0.034) ng/mL Assessment and Plan Assessment: 1 acute bilateral pulmonary embolism secondary to lower extremity DVT. Identify respect a sedentary lifestyle. No recent history of travel or surgery or any other malignancy. No personal family history of venothromboembolic disease. The patient has some minimal troponin leak in addition to right ventricular dilatation which probably is chronic rather than acute. The pulmonary artery personal nonelevated estimated to be around 22 mmHg. 2 acute hypoxic respiratory failure secondary to above 3 morbid obesity with features of obstructive sleep apnea BMI is 49.6 4 chronic lower extremity edema 5 hypertension Plan: The patient was seen and evaluated by Dr. Anna He is stable from the pulmonary standpoint Transitioned to oral anticoagulants in the a.m. Titrate down the FiO2 as tolerated Continue diuretics Continue to follow Would benefit from CPAP in the home setting I, the cosigning physician, performed a history & physical examination of the p atient. Lungs sounds are clear, diminished in the bases. Maintaining good O2 saturations in the 90s on 2 L/m per nasal cannula. I discussed the assessment and plan of care with my nurse practitioner, Jaqui Segovia. I attest to the above note as dictated by her.
--- NOTE | 2020-04-21 13:04 | P.PN ---
Subjective Progress Note Date: 04/21/20 The patient was interviewed and examined resting comfortably in bed. He states he does have some shortness of breath, however he has been relatively asymptomatic at rest. He denies any relation to the bathroom or up to the chair since his admission to the hospital. He also denies any chest pain or chest pressure. No palpitations, dizziness, or lightheadedness. Echocardiogram revealed normal LV function with moderate to severely dilated right ventricle GENERAL: Well-appearing, well-nourished obese male in no acute distress. NECK: Supple without JVD or thyromegaly. LUNGS: Breath sounds diminished to auscultation bilaterally. Respiration equal and unlabored. No wheezes, rales or rhonchi. HEART: Regular rate and rhythm without murmurs, rubs or gallops. S1 and S2 heard. EXTREMITIES: Normal range of motion. Generalized mild lower extremity edema No clubbing or cyanosis. Peripheral pulses intact and strong. Vitals: Blood pressure 135/74, pulse ox 93% on 2 L nasal cannula, respiratory rate 20, pulse rate 74, temperature 97.7 Laboratory data: WBC 9.1, hemoglobin 14.3, hematocrit 44.6, platelet 175 Assessment: #1 new-onset of shortness of breath, positive for pulmonary emboli #2 pulmonary embolism, on heparin drip #3 bilateral lower extremity DVT #4 abnormal troponin, secondary to PE/DVT #5 hypertension #6 morbid obesity Plan: Continue current medication regimen, including anticoagulation as recommended by pulmonology. Recommend pulmonary hygiene and ambulation. Patient will follow- up for repeat outpatient echo in the future. No additional recommendations at this time. Objective - Vital Signs Vital signs: Vital Signs Temp 97.7 F 04/21/20 08:00 Pulse 74 04/21/20 08:00 Resp 20 04/21/20 08:00 BP 135/74 04/21/20 08:00 Pulse Ox 93 L 04/21/20 08:00 Intake & Output 04/20/20 04/21/20 04/21/20 18:59 06:59 18:59 Intake Total 748 250 250 Output Total 551 376 4752 Balance - Weight 165.5 kg 150.8 kg Intake: IV 28 Heparin Sod,Pork in 0.45% 28 NaCl 25,000 unit In 0.45 % NaCl 1 250ml.bag @ 15. 365 UNITS/KG/HR 22.999 mls/hr IV .[id number] [facility] Rx #:[id number] Intake, IV Titration 250 250 Amount Heparin Sod,Pork in 0.45% 250 250 NaCl 25,000 unit In 0.45 % NaCl 1 250ml.bag @ 15. 365 UNITS/KG/HR 22.999 mls/hr IV .[id number] [facility] Rx #:[id number] Oral 720 Output: Urine 069 506 3182 Other: Voiding Method Urinal # Voids 1 0 - Labs CBC & Chem 7: 04/21/20 06:19 04/19/20 15:01 Labs: Abnormal Lab Results - Last 24 Hours (Table) 04/20/20 04/21/20 Range/Units 09:23 06:19 APTT 50.7 H (22.0-30.0) sec Troponin I 0.038 H* (0.000-0.034) ng/mL
[2020-04-21 23:50] LABS: Hemoglobin A1C 6.1 % (4.0-6.0)
[2020-04-22] MEDS: SODIUM CHLORIDE 0.9% 1,000 ML IV SCH ×2 (02:27→11:57)
[2020-04-22] MEDS: PANTOPRAZOLE 40 MG TABLET PO SCH (06:36)
[2020-04-22 06:47] LABS: Basophils # (A) 0.1 k/uL (0-0.2); Basophils % (A) 1 %; Eosinophils # (A) 0.2 k/uL (0-0.7); Eosinophils % (A) 3 %; HCT 42.5 % (39.0-53.0); HGB 13.7 gm/dL (13.0-17.5); Lymphocytes # (A) 1.8 k/uL (1.0-4.8); Lymphocytes % (A) 25 %; MCH 27.5 pg (25.0-35.0); MCHC 32.3 g/dL (31.0-37.0); MCV 85.3 fL (80.0-100.0); Mean Platelet Volume 8.8; Monocytes # (A) 0.4 k/uL (0-1.0); Monocytes % (A) 5 %; Neutrophils # (A) 4.6 k/uL (1.3-7.7); Neutrophils % (A) 64 %; Platelet Count 189 k/uL (150-450); RBC 4.98 m/uL (4.30-5.90); RDW 13.8 % (11.5-15.5); WBC 7.3 k/uL (3.8-10.6)
[2020-04-22] MEDS: FUROSEMIDE 10 MG/ML 4 ML VIAL IV SCH (08:28)
[2020-04-22] MEDS: lisinopriL 10 MG TAB PO SCH (08:29)
[2020-04-22] MEDS: amLODIPine 5 MG TAB PO SCH (08:29)
[2020-04-22] MEDS: POTASSIUM CHLORIDE ER 10 MEQ TAB.ER.PRT PO SCH (08:29)
[2020-04-22] MEDS ORDERED: APIXABAN 5 MG TAB PO SCH (10:15)
--- NOTE | 2020-04-22 11:10 | P.PN ---
Subjective Progress Note Date: 04/22/20 Principal diagnosis: Acute hypoxic respiratory failure secondary to acute bilateral pulmonary emboli and lower extremity DVT A 60-year-old morbidly obese male patient with a BMI of 49.6, sedated lifestyle, coming in with few days' history of worsening shortness of breath and increased lower extremity edema. He denied having any chest pain. No pleurisy. No hemoptysis. He doesn't do a whole lot of walking or mobility. No history of malignancy. No 70 recent surgery. No history of any recent travel. In the ED, the patient was found to have an elevated d-dimer. Doppler of the lower extremity was positive for bilateral popliteal DVT. CT angiogram of the chest shows about the pulmonary embolism and the patient was started on IV heparin the patient got transferred to the telemetry unit. No previous history of DVT. No previous history of pulmonary embolism. No history of any malignancy. The echo of the heart showed LV function is normal. There is moderate concentric LVH, RV is moderate to severe dilated. The right ventricular systolic pressure was measured to be 22 mmHg. Left anterior ejection fraction of 55-60%. No other valvular abnormalities have been noted. The EKG showing sinus tachycardia at a time of admission with a heart rate of [address] segment abnormalities. The troponin was at 0.09. ProBNP level was 4870. The patient is currently on IV heparin. The patient is seen today 04/21/2020 in follow-up on the selective care unit. He is currently resting comfortably in bed. Awake and alert in no acute distress. Denies any worsening shortness of breath, cough or congestion. No hemoptysis. Continue to saturations in the low 90s on 2 L/m per nasal cannula. He is afebrile. Hemodynamically stable. White count 9.1. Hemoglobin 14.3. He remains on a heparin drip. Continued on IV diuretics. The patient is seen today 04/22/2020 in follow-up on the selective care unit. He is awake and alert in no acute distress. Resting quite comfortably in bed. He has been up ambulating to the bathroom. He's been up in the chair at the bedside. He is maintaining O2 saturation in the 90s on 2 L/m per nasal cannula. Afebrile. White count 7.3. Hemoglobin 13.7. He remains on a heparin drip. Remains on IV diuretics. Lower extremity edema improving. Objective - Vital Signs Vital signs: Vital Signs Temp 98 F 04/22/20 08:00 Pulse 86 04/22/20 08:00 Resp 18 04/22/20 08:00 BP 154/81 04/22/20 08:00 Pulse Ox 94 L 04/22/20 08:00 Intake & Output 04/21/20 04/22/20 04/22/20 18:59 06:59 18:59 Intake Total 610 614.139 360 Output Total 1702 1625 1250 Balance -1092 -1010.861 -890 Weight 150.8 kg 141.5 kg Intake: Intake, IV Titration 250 254.139 Amount Heparin Sod,Pork in 0.45% 250 234.139 NaCl 25,000 unit In 0.45 % NaCl 1 250ml.bag @ 15. 365 UNITS/KG/HR 22.999 mls/hr IV .[id number] [facility] Rx #:[id number] Sodium Chloride 0.9% 1, 20 000 ml @ 80 mls/hr IV . [id number] [facility] Rx#:[id number] Oral 360 360 360 Output: Urine 1702 1625 1250 Other: Voiding Method Toilet Urinal # Voids 1 - Exam Morbidly obese, very pleasant 60-year-old gentleman, on 2 L nasal cannula, comfortable not in acute respiratory distress Head exam was generally normal. There was no scleral icterus or corneal arcus. Mucous membranes were moist. Neck was supple and without jugular venous distension, thyromegaly, or carotid bruits. Carotids were easily palpable bilaterally. There was no adenopathy. Mallampati class IV Lungs sounds are diminished in the lung bases bilaterally. No crackles or w heezes or rhonchi. Cardiac exam revealed the PMI to be normally situated and sized. The rhythm was regular and no extrasystoles were noted during several minutes of auscultation. The first and second heart sounds were normal and physiologic splitting of the second heart sound was noted. There were no murmurs, rubs, clicks, or gallops. Abdomen is obese soft nontender. Organs cannot be palpated. No direct tenderness or rebound tenderness or guarding. Extremities are showing +1 pitting edema. No cyanosis or clubbing. Neurologically, the patient is awake and alert and the patient does not have any focal neurological deficit. Cranial nerves are essentially intact. Examination of the skin revealed no evidence of significant rashes, suspicious appearing nevi or other concerning lesions. - Labs CBC & Chem 7: 04/22/20 06:29 04/19/20 15:01 Labs: Abnormal Lab Results - Last 24 Hours (Table) 04/21/20 04/22/20 Range/Units 06:19 07:28 APTT 58.4 H (22.0-30.0) sec Hemoglobin A1c 6.1 H (4.0-6.0) % Assessment and Plan Assessment: 1 acute bilateral pulmonary embolism secondary to lower extremity DVT. Identify respect a sedentary lifestyle. No recent history of travel or surgery or any other malignancy. No personal family history of venothromboembolic disease. The patient has some minimal troponin leak in addition to right ventricular dilatation which probably is chronic rather than acute. The pulmonary artery personal nonelevated estimated to be around 22 mmHg. 2 acute hypoxic respiratory failure secondary to above 3 morbid obesity with features of obstructive sleep apnea BMI is 49.6 4 chronic lower extremity edema 5 hypertension Plan: The patient was seen and evaluated by Dr. Anna He is stable from the pulmonary standpoint He is being transitioned to Eliquis Titrate down the FiO2 as tolerated Continue diuretics Would benefit from CPAP in the home setting Probable discharge in the a.m. I, the cosigning physician, performed a history & physical examination of the patient. Lungs sounds are clear, diminished in the bases. Maintaining good O2 saturations in the 90s on 2 L/m per nasal cannula. I discussed the assessment and plan of care with my nurse practitioner, Jaqui Segovia. I attest to the above note as dictated by her.
[2020-04-22] MEDS ORDERED: HEPARIN SODIUM,PORCINE 5,000 UNIT/ML 1 ML VIAL IV PRN (12:30)
--- NOTE | 2020-04-22 13:27 | P.PN ---
Subjective Progress Note Date: 04/22/20 Principal diagnosis: Bilateral pulmonary embolus Vital signs are stable patient is significantly improved patient awake alert oriented 3 in good spirits, has been getting up with physical therapy reviewed all the consultants notes will visit her patient's a repeat visit OBS and the use of CPAP . We' will transition patient to eloquis is according to the PE protocol Objective - Vital Signs Vital signs: Vital Signs Temp 97.5 F L 04/22/20 12:00 Pulse 86 04/22/20 12:00 Resp 20 04/22/20 12:00 BP 130/73 04/22/20 12:00 Pulse Ox 98 04/22/20 12:00 Intake & Output 04/21/20 04/22/20 04/22/20 18:59 06:59 18:59 Intake Total 610 614.139 360 Output Total 1702 1625 1925 Balance -1092 -1010.861 -1565 Weight 150.8 kg 141.5 kg Intake: Intake, IV Titration 250 254.139 Amount Heparin Sod,Pork in 0.45% 250 234.139 NaCl 25,000 unit In 0.45 % NaCl 1 250ml.bag @ 15. 365 UNITS/KG/HR 22.999 mls/hr IV .[id number] [facility] Rx #:[id number] Sodium Chloride 0.9% 1, 20 000 ml @ 80 mls/hr IV . [id number] [facility] Rx#:[id number] Oral 360 360 360 Output: Urine 1702 1625 1925 Other: Voiding Method Toilet Urinal # Voids 1 - Exam General: [Patient awake, alert and oriented times 3. Patient in no acute distress. Morbidly obese HEENT: [PERRL. EOMI. No pharyngeal erythema or exudate.] Neck: [No adenopathy.] Cardiac: [Heart regular in rate and rhythm. No S3. No S4. No clicks, rubs. No murmur.] Lungs: [Clear to auscultation bilaterally.] Abdomen: [No mass. No organomegaly. Bowel sounds presnt and normoactive in all 4 quadrants. Obese Extremes: [2+ edema no cyanosis no claudication normal pulses] : Normal male genitalia Musculoskeletal: [No joint erythema, edema or tenderness.] Skin: [No rash.] Neurologic: [No lateralizing deficits. CN II - XII grossly intact.] Lymphatic: [No adenopathy.] - Labs CBC & Chem 7: 04/22/20 06:29 04/19/20 15:01 Labs: Abnormal Lab Results - Last 24 Hours (Table) 04/21/20 04/22/20 Range/Units 06:19 07:28 APTT 58.4 H (22.0-30.0) sec Hemoglobin A1c 6.1 H (4.0-6.0) % Assessment and Plan (1) Obstructive sleep apnea Current Visit: Yes Status: Acute Code(s): G47.33 - OBSTRUCTIVE SLEEP APNEA (ADULT) (PEDIATRIC) SNOMED Code(s): 98996919 (2) Morbidly obese Current Visit: Yes Status: Acute Code(s): E66.01 - MORBID (SEVERE) OBESITY DUE TO EXCESS CALORIES SNOMED Code(s): 316618559 (3) Sedentary lifestyle Current Visit: Yes Status: Acute Code(s): Z91.89 - OTH PERSONAL RISK FACTORS, NOT ELSEWHERE CLASSIFIED SNOMED Code(s): 020720661 (4) Elevated troponin Current Visit: Yes Status: Acute Code(s): R79.89 - OTHER SPECIFIED ABNORMAL FINDINGS OF BLOOD CHEMISTRY SNOMED Code(s): 008783326 (5) Pulmonary embolism on left Current Visit: Yes Status: Acute Code(s): I26.99 - OTHER PULMONARY EMBOLISM WITHOUT ACUTE COR PULMONALE SNOMED Code(s): 01133526 (6) Pulmonary embolism on right Current Visit: Yes Status: Acute Code(s): I26.99 - OTHER PULMONARY EMBOLISM WITHOUT ACUTE COR PULMONALE SNOMED Code(s): 49508837 (7) Venous thromboembolism (VTE) Current Visit: Yes Status: Acute Code(s): I82.90 - ACUTE EMBOLISM AND THROMBOSIS OF UNSPECIFIED VEIN SNOMED Code(s): 380530163 Plan: Encourage ambulation Discussed but will hold treating sleep apnea for now stop heparin apixaban PE protocol Consider consultation with vascular surgery for possible Debra filter placement We will continue to follow closely Time with Patient: Greater than 30
[2020-04-22] MEDS: HEPARIN SOD,PORK IN 0.45% NACL 25,000 UNIT in 0.45% NACL 1 250ML.BAG IV SCH (14:19)
[2020-04-23] MEDS: HEPARIN SOD,PORK IN 0.45% NACL 25,000 UNIT in 0.45% NACL 1 250ML.BAG IV SCH (03:30)
[2020-04-23 04:17] VITALS: RESP 18
[2020-04-23] MEDS: SODIUM CHLORIDE 0.9% 1,000 ML IV SCH ×2 (05:19→09:11)
[2020-04-23] MEDS: PANTOPRAZOLE 40 MG TABLET PO SCH (06:33)
[2020-04-23] MEDS: POTASSIUM CHLORIDE ER 10 MEQ TAB.ER.PRT PO SCH (09:11)
[2020-04-23] MEDS: lisinopriL 10 MG TAB PO SCH (09:11)
[2020-04-23] MEDS: amLODIPine 5 MG TAB PO SCH (09:11)
[2020-04-23] MEDS: FUROSEMIDE 10 MG/ML 4 ML VIAL IV SCH (09:12)
[2020-04-23 11:47] VITALS: BP 113/66; TEMP 97.8
--- NOTE | 2020-04-23 12:43 | P.PN ---
Subjective Progress Note Date: 04/23/20 A 60-year-old morbidly obese male patient with a BMI of 49.6, sedated lifestyle, coming in with few days' history of worsening shortness of breath and increased lower extremity edema. He denied having any chest pain. No pleurisy. No hemoptysis. He doesn't do a whole lot of walking or mobility. No history of malignancy. No 71 recent surgery. No history of any recent travel. In the ED, the patient was found to have an elevated d-dimer. Doppler of the lower extremity was positive for bilateral popliteal DVT. CT angiogram of the chest shows about the pulmonary embolism and the patient was started on IV heparin the patient got transferred to the telemetry unit. No previous history of DVT. No previous history of pulmonary embolism. No history of any malignancy. The echo of the heart showed LV function is normal. There is moderate concentric LVH, RV is moderate to severe dilated. The right ventricular systolic pressure was measured to be 22 mmHg. Left anterior ejection fraction of 55-60%. No other valvular abnormalities have been noted. The EKG showing sinus tachycardia at a time of admission with a heart rate of [address] segment abnormalities. The troponin was at 0.09. ProBNP level was 4870. The patient is currently on IV heparin. The patient is seen today 04/21/2020 in follow-up on the selective care unit. He is currently resting comfortably in bed. Awake and alert in no acute distress. Denies any worsening shortness of breath, cough or congestion. No hemoptysis. Continue to saturations in the low 90s on 2 L/m per nasal cannula. He is afebrile. Hemodynamically stable. White count 9.1. Hemoglobin 14.3. He remains on a heparin drip. Continued on IV diuretics. The patient is seen today 04/22/2020 in follow-up on the selective care unit. He is awake and alert in no acute distress. Resting quite comfortably in bed. He has been up ambulating to the bathroom. He's been up in the chair at the bedside. He is maintaining O2 saturation in the 90s on 2 L/m per nasal cannula. Afebrile. White count 7.3. Hemoglobin 13.7. He remains on a heparin drip. Remains on IV diuretics. Lower extremity edema improving. 04/23/2020, the patient is doing well without any significant complaints. He remains on IV heparin. He is going to be started on Eliquis today. We are still in the process of checking his coverage. He remains on IV heparin. PTT is therapeutic for now. Hemoglobin from yesterday was 13.7. No chest pain. No shortness of breath. He is currently on a 6% on room air oxygen. He remains on IV Lasix and is reporting some improvement in lower extremity edema. Objective - Vital Signs Vital signs: Vital Signs Temp 97.8 F 04/23/20 08:50 Pulse 89 04/23/20 08:50 Resp 18 04/23/20 08:50 BP 113/66 04/23/20 08:50 Pulse Ox 96 04/23/20 08:50 Intake & Output 04/22/20 04/23/20 04/23/20 18:59 06:59 18:59 Intake Total 960 1180.997 240 Output Total 1925 1625 Balance -965 -444.003 240 Weight 140.3 kg Intake: Intake, IV Titration 1080.997 Amount Heparin Sod,Pork in 0.45% 280.997 NaCl 25,000 unit In 0.45 % NaCl 1 250ml.bag @ 13. 08 UNITS/KG/HR 18.508 mls /hr IV .[id number] JUVENCIO Rx#: [id number] Sodium Chloride 0.9% 1, 800 000 ml @ 80 mls/hr IV . [id number] JUVENCIO Rx#:[id number] Oral 960 100 240 Output: Urine 1925 1625 Other: Voiding Method Toilet Toilet Urinal Urinal # Voids 1 - Exam Morbidly obese, very pleasant 60-year-old gentleman, on 2 L nasal cannula, comfortable not in acute respiratory distress Head exam was generally normal. There was no scleral icterus or corneal arcus. Mucous membranes were moist. Neck was supple and without jugular venous distension, thyromegaly, or carotid bruits. Carotids were easily palpable bilaterally. There was no adenopathy. Mallampati class IV Lungs sounds are diminished in the lung bases bilaterally. No crackles or wheezes or rhonchi. Cardiac exam revealed the PMI to be normally situated and sized. The rhythm was regular and no extrasystoles were noted during several minutes of auscultation. The first and second heart sounds were normal and physiologic splitting of the second heart sound was noted. There were no murmurs, rubs, clicks, or gallops. Abdomen is obese soft nontender. Organs cannot be palpated. No direct tenderness or rebound tenderness or guarding. Extremities are showing +1 pitting edema. No cyanosis or clubbing. Neurologically, the patient is awake and alert and the patient does not have any focal neurological deficit. Cranial nerves are essentially intact. Examination of the skin revealed no evidence of significant rashes, suspicious appearing nevi or other concerning lesions. - Labs CBC & Chem 7: 04/22/20 06:29 04/19/20 15:01 Labs: Abnormal Lab Results - Last 24 Hours (Table) 04/23/20 Range/Units 06:35 APTT 49.3 H (22.0-30.0) sec Assessment and Plan Plan: 1 acute bilateral pulmonary embolism secondary to lower extremity DVT. Identify respect a sedentary lifestyle. No recent history of travel or surgery or any other malignancy. No personal family history of venothromboembolic disease. The patient has some minimal troponin leak in addition to right ventricular dilatation which probably is chronic rather than acute. The pulmonary artery personal nonelevated estimated to be around 22 mmHg. 2 acute hypoxic respiratory failure secondary to above, improved and the patient is currently on room air oxygen with a pulse is 96% 3 morbid obesity with features of obstructive sleep apnea BMI is 49.6 4 chronic lower extremity edema, improving on IV Lasix 5 hypertension Plan Proceed with Eliquis treatment and this continued IV heparin Monitor lower extremity edema is essentially improving and cut down the IV fluids to KVO Lasix 40 mg IV every 24 hours We'll continue to follow
--- NOTE | 2020-04-23 13:53 | P.DS ---
Providers Date of admission: 04/19/20 17:24 Expected date of discharge: 04/23/20 Attending physician: Kody Mckenna Consults: 04/19/20 17:25 Consult Physician Routine Consulting Provider: Froilan Cordoba Consult Reason/Comments: Bilateral pulmonary emboli Do you want consulting provider notified?: Yes Consult Physician Routine Consulting Provider: Steve Chaparro Consult Reason/Comments: Elevated troponin, pulmonary embolism Do you want consulting provider notified?: Yes 04/20/20 11:45 Consult Physician Routine Consulting Provider: Daniel Diop Consult Reason/Comments: Bilateral PEs, DVTs Do you want consulting provider notified?: Yes Primary care physician: Kody Mckenna [facility] Course: Final Diagnoses: Acute bilateral PEs and lower extremity DVTs. Acute hypoxic respiratory failure secondary to the above Acute chest pain, elevated troponin ruling out acute coronary syndrome, cardiology following Lactic acidosis, resolved History of nicotine dependence, quit smoking 2 years ago Morbid obesity, BMI 49.6 History of CHF, echo pending Hypertension, essential OA DEVYN, does not wear CPAP Hospital course:This is a 60-year-old gentleman sent directly via EMS to ER from PCPs office with complaints of worsening shortness of breath 3 days, chest pain, diaphoresis, in a patient with morbid obesity, CHF, hypertension, osteoarthritis, and multiple other medical issues. On admission, d-dimer elevated, 9.28, CT positive for bilateral PE, Dopplers positive for bilateral lower extremity DVT. No history of malignancy. Denies recent travel or recent surgery. Echo reporting normal LV function, moderate concentric left ventricular hypertrophy, moderate to severe dilated RV. EKG reported sinus tachycardia with occasional PVCs, nonspecific ST segment abnormalities. Troponin 0.093, 0.038. BNP 4870. Afebrile, normal WBC Tachypneic, tachycardic, hypoxic-requiring 2-3 L O2 to maintain O2 sats in the 90s on admission. Chest x-ray suboptimal without acute pulmonary process Anticoagulated on heparin drip, converted over to Eliquis. Cleared by cardiology, hematology, pulmonary for discharge. Patient is being discharged home in a stable condition with guarded prognosis, The impression and plan of care has been dictated as directed. : I performed a history and examination of this patient, discussed the same with the dictator. I agree with the dictator's note ,documented as a scribe. Any additional findings or plans will be noted. Patient Condition at Discharge: Stable Plan - Discharge Summary Discharge Rx Participant: No New Discharge Prescriptions: New Apixaban [Eliquis Starter Pack (for VTE)] 0 mg PO DIRECTED 30 Days #1 pack Apixaban [Eliquis Starter Pack (for VTE)] 0 mg PO DIRECTED 30 Days #1 pack Pantoprazole [Protonix] 40 mg PO AC-BRKFST #30 tablet. Continue Lisinopril [Prinivil] 10 mg PO DAILY Potassium Chloride [K-Tab ER] 10 meq PO DAILY Furosemide [Lasix] 40 mg PO DAILY amLODIPine [Norvasc] 5 mg PO DAILY Discharge Medication List Furosemide [Lasix] 40 mg PO DAILY 10/24/17 [History] Lisinopril [Prinivil] 10 mg PO DAILY 10/24/17 [History] Potassium Chloride [K-Tab ER] 10 meq PO DAILY 10/24/17 [History] amLODIPine [Norvasc] 5 mg PO DAILY 04/19/20 [History] Apixaban [Eliquis Starter Pack (for VTE)] 0 mg PO DIRECTED 30 Days #1 pack 04/22/20 [Rx] Apixaban [Eliquis Starter Pack (for VTE)] 0 mg PO DIRECTED 30 Days #1 pack 04/23/20 [Rx] Pantoprazole [Protonix] 40 mg PO AC-BRKFST #30 tablet. 04/23/20 [Rx] Follow up Appointment(s)/Referral(s): Daniel Diop MD [STAFF PHYSICIAN] - 4 Weeks ([facility] call office [phone] to make f/u appt 4-6 wks post d/c) Kody Mckenna Jr, [Primary Care Provider] - 3 Days Bisi Anna MD [STAFF PHYSICIAN] - 1 Week Ambulatory/Diagnostic Orders: Complete Blood Count w/diff [LAB.AMB] Time Frame: 3 Days, Location: None Selected
[2020-04-23 14:19] VITALS: PULSE 60
[2020-04-23] MEDS ORDERED: APIXABAN 5 MG TAB PO SCH (15:45)
--- NOTE | 2020-04-24 16:09 | CDI ---
Documentation Clarification Form Date: 04/24/20 From: Latosha Rodriguez CCS Phone: If you have a question about this query, please contact Michelle Olivares, Job Printer Apprentice at [phone] between 8am and 5pm. Admit Date: 04/19/20 Discharge Date:04/23/20 Patient Name: Dallas Mcclure Visit Number: [id number] ATTENTION: The Clinical Documentation Specialists (CDI) and [facility] Coding Staff appreciate your assistance in clarifying documentation. Please respond to the clarification below the line at the bottom and electronically sign. The CDI & [facility] Coding staff will review the response and follow-up if needed. Please note: Queries are made part of the Legal Health Record. If you have any questions, please contact the author of this message via ITS. Dear Dr. Mckenna, CHF is documented in the ED, H&P, Consult, DS. History/Risk Factors: Pulmonary Embolism, DVT, HTN, Morbid obseity w/ BMI 47, DEVYN Clinical Indicators: Lower extremity edema VS/Pulse OX: BP 134/92, RR 29, [place] 114, O2 Sat 94 BNP: 4870 Echocardiogram Results: The left ventricular size is normal.There is moderate concentric left ventricular hypertrophy.Overall left ventricular systolic function is normal with, an EF between 55 - 60 % Chest X Ray: Suboptimal study, cardiomegaly without acute pulmonary process noted. Treatment: Lasix 40 mg IV Daily, Lasix 40 mg PO Daily continued from home In your professional opinion, can you please clarify the acuity and type of CHF if known? Systolic Heart Failure: Acute Chronic Acute on Chronic Diastolic Heart Failure: Acute Chronic Acute on Chronic Systolic & Diastolic Heart Failure: Acute Chronic Acute on Chronic Heart Failure Unable to Determine Other, please specify MTDD
--- NOTE | 2020-05-07 10:18 | CDI ---
Documentation Clarification Form Date: 05/07/20 From: Latosha Rodriguez CCS Phone: If you have a question about this query, please contact Michelle Olivares, Hose Maker at [phone] between 8am and 5pm. Admit Date: 04/19/20 Discharge Date:04/23/20 Patient Name: Dallas Mcclure Visit Number: [id number] ATTENTION: The Clinical Documentation Specialists (CDI) and [facility] Coding Staff appreciate your assistance in clarifying documentation. Please respond to the clarification below the line at the bottom and electronically sign. The CDI & [facility] Coding staff will review the response and follow-up if needed. Please note: Queries are made part of the Legal Health Record. If you have any questions, please contact the author of this message via ITS. Dear Dr. Mckenna, CHF is documented in the ED, H&P, Consult, DS. History/Risk Factors: Pulmonary Embolism, DVT, HTN, Morbid obseity w/ BMI 47, DEVYN Clinical Indicators: Lower extremity edema VS/Pulse OX: BP 134/92, RR 29, [place] 114, O2 Sat 94 BNP: 4870 Echocardiogram Results: The left ventricular size is normal.There is moderate concentric left ventricular hypertrophy.Overall left ventricular systolic function is normal with, an EF between 55 - 60 % Chest X Ray: Suboptimal study, cardiomegaly without acute pulmonary process noted. Treatment: Lasix 40 mg IV Daily, Lasix 40 mg PO Daily continued from home In your professional opinion, can you please clarify the acuity and type of CHF if known? Systolic Heart Failure: Acute Chronic Acute on Chronic Diastolic Heart Failure: Acute Chronic Acute on Chronic Systolic & Diastolic Heart Failure: Acute Chronic Acute on Chronic Heart Failure Unable to Determine Other, please specify Mr. Mcclure has specifically right-sided heart failure secondary to untreated sleep apnea, this patient has been diagnosed with sleep apnea for approximately 2 years and has been noncompliant with CPAP treatment to this day, so technically he has CHF with normal ejection fraction MTDD
== END 2020-04-23 16:07 | disposition home health service (06) | DRG 299 ==
LOC: EC 14:45 → 3SCARD 17:24
PROVIDERS: ADMIT Family Medicine; ATTEND Family Medicine
DX: I82.433 Acute embolism and thrombosis of popliteal vein, bilateral (principal); I26.94 Multiple subsegmental thrombotic pulmonary emboli without acute cor pulmonale; J96.01 Acute respiratory failure with hypoxia; E87.2 Acidosis; Z20.828 Contact with and (suspected) exposure to other viral communicable diseases; I50.9 Heart failure, unspecified; I11.0 Hypertensive heart disease with heart failure; E66.01 Morbid (severe) obesity due to excess calories; Z68.42 Body mass index [BMI] 45.0-49.9, adult; M15.9 Polyosteoarthritis, unspecified; R00.0 Tachycardia, unspecified; R79.89 Other specified abnormal findings of blood chemistry; G47.33 Obstructive sleep apnea (adult) (pediatric); I87.2 Venous insufficiency (chronic) (peripheral); Z79.899 Other long term (current) drug therapy; Z90.49 Acquired absence of other specified parts of digestive tract; Z98.890 Other specified postprocedural states; Z87.891 Personal history of nicotine dependence; Z82.49 Family history of ischemic heart disease and other diseases of the circulatory system; Z81.1 Family history of alcohol abuse and dependence; Z83.79 Family history of other diseases of the digestive system
CPT/HCPCS: 36415; 71046; 71275; 80053; 82550; 83036; 83605; 83735; 83880; 84484; 85025; 85379; 85610; 85730; 93005; 93306; 93970; 94760; 96365; 96376; 99291

== ENCOUNTER → 2020-09-24 | Outpatient (CLI) | payer MEDICARE ==
--- NOTE | 2020-09-24 13:35 | US ---
EXAMINATION TYPE: US venous doppler duplex LE BI DATE OF EXAM: 09/24/2020 1:10 PM COMPARISON: NONE CLINICAL HISTORY: I26.99 pulmonary embolism. Hx of DVT on blood thinners. SIDE PERFORMED: Bilateral TECHNIQUE: The lower extremity deep venous system is examined utilizing real time linear array sonog lexa with graded compression, doppler sonography and color-flow sonography. VESSELS IMAGED: Common Femoral Vein Deep Femoral Vein Greater Saphenous Vein * Femoral Vein Popliteal Vein Small Saphenous Vein * Proximal Calf Veins (* superficial vessels) Right Leg: Negative for DVT Left Leg: Negative for DVT IMPRESSION: 1. Bilateral lower extremity ultrasound negative for deep venous thrombosis
--- NOTE | 2020-09-24 15:59 | CT ---
CT CHEST FOR PULMONARY EMBOLISM. EXAMINATION TYPE: CT angio chest DATE OF EXAM: 09/24/2020 INDICATION: Follow up PE per patient. CT DLP: 846.1 mGycm, Automated exposure control for dose reduction was used. CONTRAST: Patient injected with 100 mL of Isovue 370. COMPARISON: 04/19/2020 TECHNIQUE: CT of the chest is performed on a spiral scan at 2 mm thick sections. Study is performed with intravenous contrast timed for evaluation for pulmonary embolism. This will limit additional po rtions of the evaluation. 3-D MIP images reconstructed by the technologist are reviewed on the compu ter in the coronal and sagittal planes. FINDINGS: No persistent filling defects are evident to suggest an acute pulmonary embolism. Previous bilateral pulmonary emboli are not evident. No mediastinal or hilar adenopathy enlarged by CT criteria is evident. The ascending aorta diameter at the level of the main pulmonary artery is 3.5 cm. The main pulmonary artery diameter at the bifur cation is 2.9 cm. Lung windows are clear. Limited CT section through the upper abdomen are unremarkable. IMPRESSIONS: 1. No acute pulmonary emboli. Prior pulmonary emboli are not identified.
== END | disposition home or self-care (01) ==
LOC: RADCTMAIN 11:47
PROVIDERS: ATTEND Internal Medicine Hematology & Oncology
DX: I26.99 Other pulmonary embolism without acute cor pulmonale (principal); I80.299 Phlebitis and thrombophlebitis of other deep vessels of unspecified lower extremity; R06.02 Shortness of breath
CPT/HCPCS: 93970; 71275; Q9967